=== PATIENT | male | born 1965 | race Caucasian/White ===

== ENCOUNTER 2019-12-18 08:29 | Day surgery (SDC) | payer SELFPAY ==
[2019-12-17 13:59] VITALS: BMI 29.0
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
[2019-12-18 09:37] VITALS: BP 140/87; PULSE 110; RESP 20; TEMP 36.4; O2SAT 98
[2019-12-18] MEDS: sodium chloride 0.9% 1,000 ML 30 ML (09:42)
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
[2019-12-18 10:45] VITALS: BP 125/88; PULSE 80; RESP 16; TEMP 36.2; O2SAT 99
--- NOTE | 2019-12-18 10:52 | ANE.PACU ---
 Inpatient post-anesthesia follow up: Airway intact: Yes Vital signs: Temperature 97.1 F Pulse Rate [Left R adial] 80 Respiratory Rate 16 Blood Pressure [Le ft Arm] 125/88 Pulse Oximetry 99 Oxygen Delivery Me thod Nasal Cannula Oxygen Flow Rate 2 Fraction of Inspir ed Oxygen Hydration adequate: Yes Nausea and vomiting: No Pain level: 1
== END 2019-12-18 11:14 | disposition home or self-care (01) ==
PROVIDERS: Visit Provider Surgery
PROC: 0DJD8ZZ Inspection of Lower Intestinal Tract, Via Natural or Artificial Opening Endoscopic (ICD-10-PCS; CPT 45378; principal; 2019-12-18 10:00)
DX: R93.5 Abnormal findings on diagnostic imaging of other abdominal regions, including retroperitoneum (principal); D12.4 Benign neoplasm of descending colon; F17.210 Nicotine dependence, cigarettes, uncomplicated; M19.90 Unspecified osteoarthritis, unspecified site
CPT/HCPCS: 12345; 45385; 88305; 96365; J2704; J7030

== ENCOUNTER 2025-01-12 11:44 | Inpatient (IN) | payer BC, MEDICAID, SELFPAY ==
[2025-01-12] VITALS (52 sets, daily range): BP systolic 98–135; BP diastolic 59–99; PULSE 75–128; RESP 18–49; TEMP 36.4–36.9; O2SAT 80–96; BMI 28.5
--- NOTE | 2025-01-12 11:56 | XRR_ITS ---
PROCEDURE INFORMATION: Exam: XR Chest Exam date and time: 01/12/2025 12:08 PM Age: 59 years old Clinical indication: Shortness of breath; PT C/O chest pain and SOB x1 week. PT states SOB has worsen. PT taking breaks between each word. PT denies o2 at baseline. PT reports nausea but denies vomiting. PT states he has copd. TECHNIQUE: Imaging protocol: Radiologic exam of the chest. Views: 1 view. COMPARISON: CR XR chest 1V [id number] 11/04/2019 9:44 AM FINDINGS: Lungs: Multifocal opacities along the right upper, right lower lobes and left lower lobes concerning for multifocal pneumonia. Curvilinear bilateral opacities which can be seen with emphysematous lung changes. Pleural spaces: Unremarkable. No pleural effusion. No pneumothorax. Heart/Mediastinum: Unremarkable. No cardiomegaly. Bones/joints: Unremarkable. XR/XR chest 1V portable [id number] IMPRESSION: 1. Imaging findings concerning for multifocal pneu. monia 2. Emphysematous lung changes.
--- NOTE | 2025-01-12 11:56 | ECG_ITS ---
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 Measurements Intervals [place] Rate: 129 P: 59 TX: 104 QRS: 54 QRSD: 67 T: 41 QT: 306 QTc: 448 Interpretive Statements SINUS TACHYCARDIA WITH SHORT TX INTERVAL WITH OCCASIONAL VENTRICULAR PREMATURE COMPLEXES ABNORMAL RHYTHM ECG Compared to ECG 11/04/2019 11:46:16 Ventricular premature complex(es) now present Short TX interval now present Sinus rhythm no longer present Electronically Signed On 01-12-2025 18:38:18 COMMERCIAL REAL ESTATE AGENT by Benigno Shah M.D. [id number]
[2025-01-12] MEDS: methylPREDNISolone sod succ 125 mg/2 mL INJ IV (12:03)
[2025-01-12] MEDS: sodium chloride 0.9% 1,000 ML 999 ML IV ×2 (12:05→14:46)
[2025-01-12 12:12] LABS: Basophils % 0.1 %; Eosinophils % 0.1 %; Hematocrit 49.4 % (37-53); Lymphocytes # 0.5 10^3/uL (0.8-4.8); Mean Corpuscular HGB Conc 35.6 g/dL (30-55); Mean Corpuscular Hemoglobin 35.9 pg (27-33); Mean Corpuscular Volume 100.8 fl (82-101); Mean Platelet Volume 10.5 fL (7.4-10.4); Monocytes # 0.3 10^3/uL (0.2-0.9); Monocytes % 3.6 %; Neutrophils # 6.35 10^3/uL (1.8-7.7); Neutrophils % 88.6 %; Nucleated Red Blood Cells % 0 %; Platelet Count 107 10^3/cmm (157-399); Red Cell Distribution Width 13.4 % (12.1-15.1); White Blood Count 7.17 10^3/uL (3.29-11.43)
[2025-01-12 12:12] LABS: ABG PCO2 28.8 mmHg (35-45); ABG PH Result 7.49 (7.35-7.45); Arterial Blood Gas Hematocrit 51.5 % (42-52); Base Excess ABG 0.2 mmol/L (-2.0-2.0); Blood Gas Allen Test Pos; Blood Gas Operator Identificat WALCI; Blood Gas Sample Site Radial, right; Blood Gas Sample Type Arterial; Carboxyhemoglobin 1.2 %THgb (0.4-20.1); HCO3 ABG 22.1 mmol/L (22-26); HGB O2 Sat 92.2 % (95-100); Oxygen Device NRB; PO2 ABG 58.1 mmHg (80.0-100.0); Total Hemoglobin 16.8 g/dL (14-18)
[2025-01-12] MEDS: ipratropium-albuterol 3 mL Neb INHALATION ×4 (12:16→20:15)
[2025-01-12 12:26] LABS: Troponin(5th) Baseline 15 ng/L (0-15)
[2025-01-12 12:28] LABS: Alanine Aminotransferase 105 U/L (0-41); Albumin Level 4.2 g/dL (3.5-5.2); Alkaline Phosphatase 303 U/L (40-130); Aspartate Amino Transferase 205 U/L (0-40); Blood Urea Nitrogen 15 mg/dL (6-20); Calcium 9.3 mg/dL (8.5-10.5); Carbon Dioxide 22 mmol/L (22-29); Chloride 83 mmol/L (98-107); Creatinine Clr Calc Pharmacy 105.5104; Globulin 3.5 g/dL (1.3-4.6); Glucose 151 mg/dL (65-115); Osmolality Calculated 264 mOsm/kg (285-295); Sodium 125 mmol/L (136-145); Total Bilirubin 1.7 mg/dL (0.15-1.2); Total Protein 7.7 g/dL (6.6-8.7)
[2025-01-12 12:31] LABS: Lactic Sepsis W/Reflex 4.2 mmol/L (0.5-2.2)
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
[2025-01-12] MEDS: racepinephrine 0.5 mL Neb INHALATION (13:21)
[2025-01-12 13:54] LABS: Reflex Lactate Order REFLEX LACTIC ORDERD
--- NOTE | 2025-01-12 13:56 | ECG_ITS ---
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 Measurements Intervals [place] Rate: 115 P: 55 VT: 139 QRS: 50 QRSD: 97 T: 42 QT: 358 QTc: 496 Interpretive Statements SINUS TACHYCARDIA ABNORMAL RHYTHM ECG Compared to ECG 01/12/2025 11:50:09 Ventricular premature complex(es) no longer present Short VT interval no longer present Electronically Signed On 01-12-2025 18:50:09 EQUIPMENT COORDINATOR by Benigno Shah M.D. [email or web address]
--- NOTE | 2025-01-12 14:04 | CTR_ITS ---
PROCEDURE INFORMATION: Exam: CTA Chest With Contrast Exam date and time: 01/12/2025 2:51 PM Age: 59 years old Clinical indication: Shortness of breath; Additional info: R/O pe TECHNIQUE: Imaging protocol: Computed tomographic angiography of the chest with contrast. Exam focused on the arteries. 3D rendering (Not supervised by radiologist): MIP and/or 3D reconstructed images were created by the technologist. Radiation optimization: All CT scans at this facility use at least one of these dose optimization techniques: automated exposure control; mA and/or kV adjustment per patient size (includes targeted exams where dose is matched to clinical indication); or iterative reconstruction. Contrast material: OMNIPAQUE 350; Contrast volume: 80 ml; Contrast route: INTRAVENOUS (IV); COMPARISON: CR (CHEST, ) 01/12/2025 12:08 PM RADIATION DOSE METRICS: Total DLP (mGy-cm): 463.36 FINDINGS: Pulmonary arteries: Adequate visualization of the pulmonary arteries to the subsegmental level. No pulmonary embolism. Aorta: Ascending aorta is normal in caliber. Lungs: Predominantly right hemithorax patchy to ground-glass opacities with a peripheral predominance, there is a dominant consolidation along the posterior right lower lobe. Ground-glass opacities are also observed along the lingula and left lower lobe. Pleural spaces: There is trace of small bilateral pleural effusions. No pneumothorax. Mixed line mild coronary artery calcifications predominantly along the LAD. Heart: Unremarkable. No cardiomegaly. No pericardial effusion. Lymph nodes: Right paratracheal reactive lymph node measuring up to 1.1 centimeters. Diaphragm: There is elevation of the right hemidiaphragm. Liver: Diffuse hepatic steatosis. Bones/joints: Unremarkable. No acute fracture. Soft tissues: Unremarkable. CT/CT angio chest PE protcl [id number] IMPRESSION: 1. No pulmonary embolism. 2. Multifocal pneumonia predominantly along the right hemithorax. 3. Reactive mediastinal lymphadenopathy measuring up to 1.1 centimeters 4. Diffuse hepatic steatosis.
[2025-01-12 14:27] LABS: Troponin 5 2HR 12.04 ng/L (0-15)
[2025-01-12 14:29] LABS: Troponin 5 2HR Delta -2.96 ABS# (0-10)
[2025-01-12] MEDS: LORazepam 2 mg/mL INJ 1 mL 1 MG IVP (14:39)
[2025-01-12] MEDS: methylPREDNISolone sod succ 40 mg/mL INJ IVP (14:40)
[2025-01-12] MEDS: AZITHROMYCIN ADD-Vantage 500 MG in 0.9% NaCl ADD-Vantage 250 ML 250 MG IV (14:44)
[2025-01-12 14:51] LABS: Procalcitonin 1.31 ng/mL (0-0.5); Thyroid Stimulating Hormone 1.52 uIU/mL (0.27-4.20)
[2025-01-12] MEDS: iohexol 350 mg/mL 500 mL Btl (per mL) IV (14:53)
[2025-01-12] MEDS: cefTRIAXone 1,000 mg SDV 1000 MG IVP (15:04)
[2025-01-12 15:34] LABS: Lactic Acid level (Lactate) 3.6 mmol/L (0.5-2.2)
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
--- NOTE | 2025-01-12 15:45 | CTR_ITS ---
PROCEDURE INFORMATION: Exam: CT Abdomen And Pelvis Without Contrast Exam date and time: 01/12/2025 4:21 PM Age: 59 years old Clinical indication: Other: Rule out liver cirrhosis, aware patient recently had contrast. TECHNIQUE: Imaging protocol: Computed tomography of the abdomen and pelvis without contrast. Radiation optimization: All CT scans at this facility use at least one of these dose optimization techniques: automated exposure control; mA and/or kV adjustment per patient size (includes targeted exams where dose is matched to clinical indication); or iterative reconstruction. COMPARISON: CT abdomen pelvis w con* [id number] 11/04/2019 10:29 AM RADIATION DOSE METRICS: Total DLP (mGy-cm): 1006.02 FINDINGS: Lungs: Partially visualized multifocal pneumonia predominantly along the right hemithorax. Liver: Enlarged liver measuring 24 centimeters. There is a diffuse decrease in hepatic parenchymal density, consistent with fatty infiltration. Gallbladder and biliary ducts: Multiple calcified gallstones are present. Pancreas: Normal. No ductal dilation. Spleen: Borderline enlarged spleen measuring 13.9 centimeters. Adrenal glands: Normal. No mass. Kidneys and ureters: Normal. No hydronephrosis. Stomach and bowel: Unremarkable. No obstruction. No mucosal thickening. Appendix: No evidence of appendicitis. Intraperitoneal space: Unremarkable. No free air. No significant fluid collection. Vasculature: Unremarkable. No abdominal aortic aneurysm. Lymph nodes: Unremarkable. No enlarged lymph nodes. Urinary bladder: Unremarkable as visualized. Reproductive: Unremarkable as visualized. Bones/joints: Degenerative changes of the lumbar spine. Soft tissues: Small bilateral fat containing inguinal hernias. 3.1 centimeters lateral right lower thoracic cage lipoma. CT/CT abdomen pelvis wo con [id number] IMPRESSION: 1. Diffuse hepatic steatosis and hepatomegaly with the liver measuring 24 centimeters. 2. Cholelithiasis. 3. Multifocal pneumonia along the right hemithorax.
[2025-01-12 16:02] LABS: C Reactive Protein 114.9 mg/L (0.0-4.9)
[2025-01-12] MEDS: thiamine 100 mg/mL 2mL SDV IM (16:02)
[2025-01-12] MEDS: sodium chloride 0.9% 1,000 ML 125 ML IV (16:02)
[2025-01-12] MEDS: heparin 5,000 unit/mL INJ 1 mL 5000 UNIT SUBCUT (16:04)
[2025-01-12 16:23] LABS: Hepatitis A Antibody IgM Non-Reactive (Nonreactive); Hepatitis B Core AB, Total Non-Reactive (Nonreactive); Hepatitis B Surface AB 58.1 (11.5-1000); Hepatitis B Surface Antigen Non-Reactive (Nonreactive); Hepatitis C Virus Antibody Reactive (Nonreactive)
[2025-01-12 16:58] LABS: Vitamin B12 721 pg/mL (232-1245)
[2025-01-12] MEDS: LORazepam 2 mg/mL INJ 1 mL IVP ×3 (17:12→19:34)
--- NOTE | 2025-01-12 17:44 | PC.NURSE ---
Addendum entered by Samuel Renner RN 01/12/25 17:47: ALso bladder scanned on arrival due to ER not reporting any urine output. Bladder scan shows 200mL retained. Original Note: REceived patient form ER staff at 1635. Patient is awake, oriented to person, place, time, and situation. BP: 121/80, HR: 97, SPO2: 93% on bipap (55% FIO2). Temp: 98.5. Patient is being monitored for withdrawal. On arrival he had muscle tremors, sweating, sensitivity to light. Scored 11 on CIWA. Administered ativan shortly after arrival.
--- NOTE | 2025-01-12 17:56 | ECG_ITS ---
Axial Exchange Jaunt Test Date: 2025-01-12 Pat Name: Mario Kruger Department: Room: [facility]04 Gender: Male Churner: : 1965 Requested By: Broderick Tapia Order Number: [id number] Eduardo MD: Benigno Shah M.D. Measurements Intervals [place] Rate: 94 P: 39 WV: 139 QRS: 48 QRSD: 82 T: 51 QT: 403 QTc: 505 Interpretive Statements SINUS RHYTHM WITH OCCASIONAL VENTRICULAR PREMATURE COMPLEXES Compared to ECG 01/12/2025 13:54:40 Ventricular premature complex(es) now present Sinus tachycardia no longer present Electronically Signed On 01-12-2025 18:50:21 DUMPLING MACHINE OPERATOR by Benigno Shah M.D. [email or web address]
[2025-01-12 18:12] LABS: Troponin 5 6HR 9.63 ng/L (0-15)
[2025-01-12 18:14] LABS: Troponin 5 6HR Delta -5.37 ng/L (0-12)
[2025-01-12 19:27] LABS: Influenza A POSITIVE (Negative); Influenza B NEGATIVE (Negative); Respiratory Syncytial Virus Ce NEGATIVE (Negative); SARS-CoV-2 PCR NEGATIVE (Negative)
[2025-01-12] MEDS: PHENobarbital 130 mg/mL SDV 1 mL IVP (20:51)
--- NOTE | 2025-01-12 21:00 | PC.NURSE ---
This RN called to ICU for pt agitation and hypoxic event. Multiple nursing staff at bedside. Pt confused, trembling, pulling at bipap, IVs, monitor cords, sitting on edge of bed trying to stand up. Primary RN on phone with hospitalist.
[2025-01-12] MEDS: LORazepam 2 mg/mL INJ 1 mL 3 MG IVP ×2 (21:07→21:15)
[2025-01-12] MEDS: dexmedeTOMIDine 0.9 % NaCL 400 MCG/100 ML PREMIX IV (21:10)
[2025-01-12] MEDS: morphine 4 mg/mL SDV 1 mL 2 MG IVP ×2 (21:17→21:38)
[2025-01-12] MEDS: morphine 4 mg/mL SDV 1 mL IVP (22:05)
--- NOTE | 2025-01-12 22:41 | PC.NURSE ---
Fluid rate This nurse received order from Dr Kumar to decrease patient's maintenance fluids to 75 ml/hr.
[2025-01-12 22:46] LABS: Amphetamines Screen Urine Negative (Negative); Barbiturates Screen Urine Negative (Negative); Benzodiazepines Screen Urine Positive (Negative); Cocaine Screen Urine Negative (Negative); Opiate Screen Urine Positive (Negative); PCP Screen Urine Negative (Negative); THC Screen Urine Positive (Negative)
[2025-01-12] MEDS: dexmedeTOMIDine 0.9 % NaCL 400 MCG/100 ML PREMIX 9.9 MCG IV (23:19)
--- NOTE | 2025-01-12 23:25 | PC.NURSE ---
Multiple verbal orders taken from Dr Kumar regarding pt. Dr Kumar at bedside. Pt unable to follow commands, pt unable to answer questions, pt continuously pulling at all lines and tubes, diaphoretic. Respiration rate exceeding 55+ bpm. O2 87-91% on bipap fio2 55%. 2106 - Precedex gtt 2106 - Ativan 3 mg 2114 - Morphine 2 mg 2137 - Morphine 2 mg 2204 - Morphine 4 mg
[2025-01-13] VITALS (124 sets, daily range): BP systolic 79–138; BP diastolic 44–107; PULSE 62–120; RESP 16–39; TEMP 37.3–38.1; O2SAT 80–100
[2025-01-13] MEDS: sodium chloride 0.9% 1,000 ML 999 ML IV (00:47)
[2025-01-13] MEDS: heparin 5,000 unit/mL INJ 1 mL 5000 UNIT SUBCUT ×2 (01:52→14:27)
[2025-01-13] MEDS: methylPREDNISolone sod succ 40 mg/mL INJ IVP ×2 (01:53→14:27)
[2025-01-13] MEDS: dexmedeTOMIDine 0.9 % NaCL 400 MCG/100 ML PREMIX 22.28 MCG IV (02:06)
[2025-01-13] MEDS: LORazepam 2 mg/mL INJ 1 mL IVP ×6 (03:22→11:34)
[2025-01-13] MEDS: dexmedeTOMIDine 0.9 % NaCL 400 MCG/100 ML PREMIX 27.23 MCG IV ×2 (05:43→08:51)
[2025-01-13 05:44] LABS: Basophils % 0.3 %; Hematocrit 42.7 % (37-53); Lymphocytes # 0.4 10^3/uL (0.8-4.8); Lymphocytes % 9.7 %; Mean Corpuscular HGB Conc 33.5 g/dL (30-55); Mean Corpuscular Hemoglobin 36.1 pg (27-33); Mean Corpuscular Volume 107.8 fl (82-101); Mean Platelet Volume 10.8 fL (7.4-10.4); Monocytes # 0.2 10^3/uL (0.2-0.9); Monocytes % 3.9 %; Neutrophils # 3.27 10^3/uL (1.8-7.7); Neutrophils % 85.3 %; Nucleated Red Blood Cells % 0 %; Platelet Count 69 10^3/cmm (157-399); Red Blood Count 3.96 10^6/uL (3.85-5.65); Red Cell Distribution Width 13.9 % (12.1-15.1); White Blood Count 3.83 10^3/uL (3.29-11.43)
[2025-01-13 05:45] LABS: ABG PCO2 32.7 mmHg (35-45); ABG PH Result 7.43 (7.35-7.45); PO2 ABG 50.2 mmHg (80.0-100.0)
[2025-01-13 05:46] LABS: Blood Gas Sample Type Arterial
[2025-01-13 05:47] LABS: Arterial Blood Gas Hematocrit 49.2 % (42-52); Blood Gas Allen Test Pos; Blood Gas Operator Identificat SAM; Blood Gas Sample Site Radial, right; HCO3 ABG 21.5 mmol/L (22-26)
[2025-01-13 05:48] LABS: Oxygen Device BIPAP
[2025-01-13 05:57] LABS: Alanine Aminotransferase 65 U/L (0-41); Alkaline Phosphatase 199 U/L (40-130); Anion Gap 17.7 (5-19); Aspartate Amino Transferase 95 U/L (0-40); Blood Urea Nitrogen 13 mg/dL (6-20); Calcium 7.3 mg/dL (8.5-10.5); Carbon Dioxide 21 mmol/L (22-29); Chloride 97 mmol/L (98-107); Creatinine Clr Calc Pharmacy 139.6179; Globulin 2.9 g/dL (1.3-4.6); Glomerular Filtration Rate 116.2 mL/min (90-130); Glucose 160 mg/dL (65-115); Magnesium 1.8 mg/dL (1.7-2.3); Osmolality Calculated 278 mOsm/kg (285-295); Potassium 3.7 mmol/L (3.5-5.1); Sodium 132 mmol/L (136-145); Total Bilirubin 0.9 mg/dL (0.15-1.2); Total Protein 5.9 g/dL (6.6-8.7)
[2025-01-13] MEDS: sodium chloride 0.9% 1,000 ML 75 ML IV ×2 (06:30→19:07)
[2025-01-13] MEDS: ipratropium-albuterol 3 mL Neb INHALATION ×4 (08:15→20:03)
--- NOTE | 2025-01-13 08:37 | PC.NURSE ---
Patient was assessed and is only responsive to pain stimuli. Patient is breathing 35 times a minute and is having severe tremors. Dr. Aleman was notified and she stated that she will come down and assess the patient.
[2025-01-13] MEDS: pantoprazole 40 mg SDV IVP (09:37)
[2025-01-13 09:43] LABS: ABG PCO2 29.4 mmHg (35-45); ABG PH Result 7.47 (7.35-7.45); Alveolar-Arterial Oxygen Gradi 61.9 mmHg (5-10); Arterial Blood Gas Hematocrit 45.5 % (42-52); Base Excess ABG -1.2 mmol/L (-2.0-2.0); Blood Gas Allen Test Pos; Blood Gas Operator Identificat GD; Blood Gas Sample Site Radial, right; Blood Gas Sample Type Arterial; Carboxyhemoglobin 0.8 %THgb (0.4-20.1); HCO3 ABG 21.3 mmol/L (22-26); HGB O2 Sat 93.2 % (95-100); Ionized Calcium Level - ABG 1.1 mmol/L (1.1-1.4); Methemoglobin 0.9 % (0.4-1.5); Oxygen Device BIPAP; Oxygen Saturation ABG 94.8; PO2 ABG 61.8 mmHg (80.0-100.0); PO2 FiO2 Ratio Arterial Blood 77; Potassium Level - ABG 4.3 mmol/L (3.5-5.0); Total Hemoglobin 14.9 g/dL (14-18)
--- NOTE | 2025-01-13 10:36 | P.PN_ITS ---
Subjective 2 Subjective: seen this am, ABG with Po2 of 60% on 80% fi02 Medications: Reviewed: Yes Vitals/I&O/Wt Last Vital Signs Temp 100.6 F H 01/13/25 07:40 Pulse 81 01/13/25 10:00 Resp 35 H 01/13/25 10:00 BP 102/63 01/13/25 10:00 Pulse Ox 98 01/13/25 10:00 O2 Del Method BiPAP 01/13/25 08:15 O2 Flow Rate 15 01/12/25 13:21 FiO2 80 01/13/25 09:53 01/12/25 01/13/25 01/13/25 22:59 06:59 14:59 Intake Total 2878.263 / 2878.263 1507.715 / 4385.978 85.321 / 85.321 Output Total 1100 / 1100 Balance 2878.263 / 2878.263 407.715 / 3285.978 85.321 / 85.321 Weight last 48 hrs Weight 98.883 kg Weight 98.883 kg Weight 99 kg Weight 92.986 kg Physical Exam 2 Narrative: General: No acute distress, AO x3 HEENT: PERRLA, pupils bilaterally equal and reactive, pallors not present Chest: Normal vesicular breath sounds, no added sounds, equal good air entry bilaterally CVS: S1-S2 regular, no murmurs, no tachycardia, no gallops, no rubs Abdomen: Soft, nontender, no organomegaly, bowel sounds present Neuro: No focal deficits, no facial deformity, AO x3, power 5/5 in all limbs Urinary Catheter Management: Sadler: Cath Placed During This Visit: yes Reason for Continuing Indwelling Catheter: Accurate Measurement of Urinary Output in Critically Ill Patients Urinary Catheter Date of Insertion: 01/12/25 Urinary Catheter Time of Insertion: 22:00 Data 01/13/25 05:20 01/13/25 05:20 Micro: Microbiology 01/13/25 02:38 Bacterial Antigens - Final Urine,Voided 01/13/25 02:38 Legionella Urinary Antigen - Final Urine Catheterized 01/12/25 15:03 Blood Culture - Preliminary Blood SPECIMEN COLLECTED 01/12/25 15:06 Blood Culture - Preliminary Blood SPECIMEN COLLECTED NAME: Mario Kruger #: [id number] LOC: ICU U #: [id number] AGE/SX: 59/M ROOM: ICU04 R E01/12/[address]: Tuyet Aleman MD : 1965 BED: 1 D IS: FAX #: STATUS: ADM IN TLOC: Spec #: [id number] Hoa: 01/13/25 Status: COMP Req #: [id number] Recd: 01/13/[address]: Lori Lott MD Src: URINE,VOID SpDesc: Ordered: Bacterial AG Procedure Result Verified Site Bacterial Antigen Final 01/13/25 Streptococcus Group B Negative for Streptococcus Group B Antigen Haemophilus influenzae B Negative or Haemophilus influenzae B Antigen S. pneumoniae Antigen Negative for S. pneumoniae Antigen N.meningitidis A,C,Y,W135 Negative for N.meningitidis A,C,Y,W135 Antigen N.meningitidis B/E.coli Negative for N.meningitidis B/E.coli K1 Antigen NAME: Mario Kruger LOC: ICU U #: [id number] AGE/SX: 59/M ROOM: ICU04 R E01/12/[address]: Tuyet Aleman MD : 1965 BED: 1 D IS: FAX #: STATUS: ADM IN TLOC: Spec #: [id number] Hoa: 01/13/25 Status: COMP Req #: [id number] Recd: 01/13/[address]: Lori Lott MD Src: Urine Cath SpDesc: Ordered: Legionella AG Procedure Result Verified Site Legionella Antigen STAT Final 01/13/25 Legion Patient Result Presumptive Negative for L. pneumophila NAME: Mario Kruger LOC: ICU U #: [id number] AGE/SX: 59/M ROOM: ICU04 R E01/12/[address]: Tuyet Aleman MD : 1965 BED: 1 D IS: FAX #: STATUS: ADM IN TLOC: Spec : [id number] Hoa: 01/12/25 Status: COMP Req : [id number] Recd: 01/12/25-[address]: Broderick Tapia DO Ordered: 4 plex test Test Low Normal High Flag Reference Site Covid PCR Ceph NEGATIVE Negative Influenza A Cep POSITIVE Negative Influenza B Cep NEGATIVE Negative RSV Ceph NEGATIVE Negative CT/CT angio chest PE protcl [id number] IMPRESSION: 1. No pulmonary embolism. 2. Multifocal pneumonia predominantly along the right hemithorax. 3. Reactive mediastinal lymphadenopathy measuring up to 1.1 centimeters 4. Diffuse hepatic steatosis. CT/CT abdomen pelvis wo con [id number] IMPRESSION: 1. Diffuse hepatic steatosis and hepatomegaly with the liver measuring 24 centimeters. 2. Cholelithiasis. 3. Multifocal pneumonia along the right hemithorax. A&P Assessment and plan (1) Multifocal pneumonia: (2) Alcohol abuse: (3) Alcohol withdrawal seizure: (4) Thrombocytopenia: (5) Hyponatremia: (6) BiPAP (biphasic positive airway pressure) dependence: (7) ARDS (adult respiratory distress syndrome): (8) Delirium tremens: (9) AMS (altered mental status): (10) Metabolic encephalopathy: (11) Influenzal pneumonia: Plan #Shortness of breath secondary to multifocal pneumonia #Sepsis secondary to multifocal pneumonia?criteria met by elevated lactic acid, tachycardia, acute hypoxia #Alcohol abuse #Alcohol withdrawal #History of alcohol withdrawal seizures #Recent upper respiratory illness #Noncompliance, does not follow with a doctor #Lactic acidosis #Untreated hepatitis C #Hyponatremia #Thrombocytopenia ? Placed on DuoNeb every 6 hours scheduled. Patient given Solu-Medrol 125 IV in the ER once ? Placed on Solu-Medrol 40 IV twice daily ? Check bacterial antigen and strep antigen ? Continue ceftriaxone azithromycin ? Placed on thiamine folic acid, CIWA protocol ? I will give 1 mg Ativan IV right now as patient is very anxious. ? Check CTA chest to rule out PE ? Check hepatitis profile ? Patient will need to be set up with primary care doctor and GI at time of discharge ? Will escalate to BiPAP at this time. Low threshold for intubation. Patient is a full code and agreeable to intubation if required. ? Check procalcitonin ? Elevated liver enzymes most likely secondary to untreated hepatitis. Bilirubin most likely secondary to liver disease as well. ? Check CT abdomen pelvis ? Check GGT ? Sodium 125 most likely secondary to alcohol abuse. Will check urine sodium, serum, urine osmolality ? Placed on normal saline 100 cc/h. Patient appears to be dehydrated. Chloride 83. ? EKG does show sinus tachycardia. Patient denies any chest pain at this time. Troponins negative x 3. ? Check vitamin B12 level. ? Initial lactic acid 4.2, repeat is reflex. ? Check lipid panel, hemoglobin A1c, TSH ? Will admit to ICU at this time. May use Precedex drip if needed Full code DVT prophylaxis: Heparin SQ twice daily 01/13/25: Admitted 01/11 with Hypoxia and alcohol withdrawal. Per life partner at bedside, he drinks a pint of drink every day. Last drink was on morning of admission. Patient is currently on precedex maxed at 1.2 at this time. Additionally has been receviing pushes of phenobarbital and Ativan. he is obtunded at this time. does not wake up to calling name or painful stimulus. On strenal rub, he starts to have significant tremors without any other meaningful response. Overall concern for delirium tremens, likely also with metabolic encephalopathy related to ARDS. Cannot r/o viral encephalitis at this time. Patient is currently in ARDS from multifocal PNA. Pa02 at 60% at 80% fi02 on Bipap. Pa02, fi02 ratio of 75 consistent with severe ARDS. We will proceed with intubation and mechanical ventilation today given poor mentation, inability to protect airway, obtunded on Bipap, severe ARDS and delirium tremens. Will obtain CT head once intubated. His partner is currently at bedside and updated regarding critical events. T max 100.6 He has been on rx with ceftriaxone and azithromyin. Add Vancomycin for additional MRSA coverage. Add Tamiflu 75mg BID Check MRSA nares. Check sputum cx and graim stain. Check Ammonia level . Blood cx negative thus far DVT ppx: heparin to d/c today due to thrombocytopenia, plt at 69 k today, SCDS onlt for now PUD ppx: protonix 40 mg daily PDMP PDMP Reviewed: Not Reviewed Attestations 2 Medical Necessity Statement*: Continued admission for ARDS, proceeding to mechanical ventilation today, delirium tremens, altered mental status Critical Care Time: The high probability of a clinically significant, sudden or life threatening deterioration of the patient's [respiratory, metabolic] system(s) required my full and direct attention, intervention and personal management. The critical care time is as shown. This time is in addition to time spent performing any reported procedures but includes the following: [x] Data and vital sign review and interpretation [x] Patient assessment, examination and intervention [x] Documentation [x] Medication orders and management Critical Care Time (min): 60 Coding Level of Care Code Critical Care >/= 30 minutes Diagnoses Multifocal pneumonia J18.9 Alcohol abuse F10.10 Alcohol withdrawal seizure F10.939; R56.9 Thrombocytopenia D69.6 Hyponatremia E87.1 BiPAP (biphasic positive airway pressure) dependence Z99.89 ARDS (adult respiratory distress syndrome) J80 Delirium tremens F10.931 AMS (altered mental status) R41.82 Metabolic encephalopathy G93.41 Influenzal pneumonia J11.00
--- NOTE | 2025-01-13 10:54 | PHA.VACGOAL ---
Vancomycin Goal - Goal Vancomycin Goal:: 15-20 mg/L Vancomycin Indication:: Pneumonia - Therapy Current therapy:: Other Antibiotic (CEFTRIAXONE) Day of therpy:: Day 1 of [] . Actual body weight (kg): 218 lb - Data Labs: WBC 3.83 10^3/uL (3.29-11.43) 01/13/25 05:20 RBC 3.96 10^6/uL (3.85-5.65) 01/13/25 05:20 Hgb 14.30 g/dL (11.27-16.99) 01/13/25 05:20 Hct 42.7 % (37-53) 01/13/25 05:20 MCV 107.8 fl (82-101) H D 01/13/25 05:20 MCH 36.1 pg (27-33) H 01/13/25 05:20 MCHC 33.5 g/dL (30-55) D 01/13/25 05:20 RDW 13.9 % (12.1-15.1) 01/13/25 05:20 Sodium 132 mmol/L (136-145) L 01/13/25 05:20 Potassium 3.7 mmol/L (3.5-5.1) 01/13/25 05:20 Chloride 97 mmol/L (98-107) L 01/13/25 05:20 Carbon Dioxide 21 mmol/L (22-29) L 01/13/25 05:20 Anion Gap 17.7 (5-19) 01/13/25 05:20 BUN 13 mg/dL (6-20) 01/13/25 05:20 Creatinine 0.7 mg/dL (0.7-1.2) 01/13/25 05:20 GFR Calculation 116.2 mL/min (90-130) 01/13/25 05:20 Last dialysis session:: N/A Treatment plan:: new consult Regimen:: LOADING DOSE OF 3000 MG X 1 PER DOSING PROTOCOL MAINTENANCE DOSE OF 1250 MG Q8H Follow up:: WILL CONTINUE TO MONITOR AND FOLLOW UP DAILY
[2025-01-13] MEDS: etomidate 10 ML 1 MG (11:01)
[2025-01-13] MEDS: propofol 10 mg/mL SDV 20 mL 200 MG (11:03)
[2025-01-13] MEDS: fentaNYL 1,000 MCG/100 ML BAG 2.5 MCG IV (11:10)
[2025-01-13] MEDS: midazolam hcl 100 MG/100 ML BAG IV (11:10)
[2025-01-13] MEDS: propofol 1,000 MG/100 ML INJ 2.97 MG IV (11:10)
--- NOTE | 2025-01-13 11:17 | ANES.PROC ---
Anesthesia Procedures Procedure/Date: 01/13/25 Intubation: Time Out Performed: Yes Consent: requested by attending/covering physician Sedative (amount): etomidate Paralytic (amount): succinylcholine Laryngoscope: fiber optic video scope ET Tube Size: 8 ET Tube Uncuffed: Yes Tube Secured Depth (cm): 25 Tube Secured Location: teeth Tube Placement Confirmation: visualized tube passing through cords Patient Tolerated Procedure: well Intubation Complications: none Additional Comments: Drew blade was initially introduced but patient was so dry was unable to visualize cords. Patient was bagged up and video laryngoscopy was performed without issues
--- NOTE | 2025-01-13 11:41 | XRR_ITS ---
PROCEDURE INFORMATION: Exam: XR Chest Exam date and time: 01/13/2025 11:45 AM Age: 59 years old Clinical indication: Device placement; Ett placement (vent status); Additional info: Post intubation TECHNIQUE: Imaging protocol: Radiologic exam of the chest. Views: 1 view. COMPARISON: CT angio chest PE protcl [id number] 01/12/2025 2:51 PM FINDINGS: Tubes, catheters and devices: The endotracheal tube terminates 5 cm above the hunter. Enteric tube terminates in the stomach. Lungs: Incompletely imaged bilateral pulmonary infiltrates, right greater than left. Pleural spaces: Unremarkable. No pleural effusion. No pneumothorax. Heart/Mediastinum: Unremarkable. No cardiomegaly. Bones/joints: Unremarkable. XR/XR chest 1V portable [id number] IMPRESSION: 1. Intubation. 2. Bilateral pulmonary infiltrates.
[2025-01-13] MEDS: succinylcholine 20 mg/mL SDV 10mL 200 MG (12:15)
--- NOTE | 2025-01-13 12:17 | PC.NURSE ---
Patient was intubated per Dr. Aleman: 1101: Etomidate 8 mls 1101: Succinylccholine 160 mg 1111: Intubation successful 1113: Propofol 40 mg 1115: Propofol 60 mg 1117: Propofol 100 mg
[2025-01-13] MEDS: vancomycin 3,000 MG/600 ML PIGGYBACK 200 MG IV (12:37)
[2025-01-13] MEDS: azithromycin 250 mg Tablet 500 MG NG-TUBE (12:38)
[2025-01-13] MEDS: norepinephrine 4 MG/250 ML BAG 7.5 MG IV (13:27)
[2025-01-13 13:36] LABS: Ammonia 88 umol/L (16-60)
[2025-01-13] MEDS: propofol 1,000 MG/100 ML INJ 41.53 MG IV (13:41)
[2025-01-13 13:55] LABS: MRSA PCR OZH (swab) MRSA Detected (Negative)
[2025-01-13] MEDS: cefTRIAXone 1,000 mg SDV 1000 MG IVP (14:27)
[2025-01-13] MEDS: propofol 1,000 MG/100 ML INJ 44.5 MG IV ×4 (15:54→22:21)
[2025-01-13 16:22] LABS: ABG PCO2 43.3 mmHg (35-45); ABG PH Result 7.32 (7.35-7.45); Arterial Blood Gas Hematocrit 43.4 % (42-52); Base Excess ABG -3.9 mmol/L (-2.0-2.0); Blood Gas Allen Test Pos; Blood Gas Operator Identificat GD; Blood Gas Sample Site Radial, right; Blood Gas Sample Type Arterial; Blood Gas Tidal Volume 0.55; HCO3 ABG 22.2 mmol/L (22-26); Oxygen Device VENT; PO2 ABG 65.8 mmHg (80.0-100.0); PO2 FiO2 Ratio Arterial Blood 65
[2025-01-13] MEDS: oseltamivir phosphate 75 mg Capsule NG-TUBE (17:28)
[2025-01-13] MEDS: fentaNYL 1,000 MCG/100 ML BAG 12.5 MCG IV (17:46)
[2025-01-13] MEDS: vancomycin 1,250 MG/250 ML PIGGYBACK 166.67 MG IV (18:15)
--- NOTE | 2025-01-13 18:56 | PM.ACPR ---
Procedure/Consent Time out: Time Out Performed: Yes Consent: Consent for Procedure: Consent obtained from other (indicate) (life partner) Acute Procedures Central Line Placement: Right Femoral: Time out performed: Yes Patient placed on monitor/pulse ox: Yes prep: mask, gown and gloves Central line prep: Povidone-Iodine 1%, Chlorhexidine scrub and sterile drapes applied Local anesthesia used: other anesthetic (on iv fentanyl and propofol) Ultrasound used for placement: Yes Central line lumen inserted: triple Post procedure: sutured in place, good blood return, all ports aspirated, flushed, capped and sterile dressing applied Post procedure x-ray: other (N/A) Patient tolerated procedure: well and no complications Epistaxis Control: Time out performed: Yes
--- NOTE | 2025-01-13 20:13 | PC.NURSE ---
Waste Wasted 10 ml of propofol. Witnessed by SANTHOSH Alexis.
[2025-01-13] MEDS: lactulose oral liq 20 gm/30 mL UDC PO (22:18)
[2025-01-14] VITALS (112 sets, daily range): BP systolic 87–119; BP diastolic 53–73; PULSE 78–97; RESP 16–18; TEMP 36.5–37.4; O2SAT 88–100
[2025-01-14] MEDS: propofol 1,000 MG/100 ML INJ 38.56 MG IV (00:19)
[2025-01-14] MEDS: fentaNYL 1,000 MCG/100 ML BAG 12.5 MCG IV (00:41)
--- NOTE | 2025-01-14 00:42 | PC.NURSE ---
Addendum entered by Macie Enriquez RN 01/14/25 00:45: Witnessed waste of 14 ml Fentanyl with SANTHOSH Lee. Original Note: Fentanyl Waste: 14ml Fentanyl left in IV tubing when new bag was started. Wasted w/ SANTHOSH Quijano.
--- NOTE | 2025-01-14 00:50 | PC.NURSE ---
Addendum entered by Rosa Horn RN 01/14/25 00:51: Witnessed waste of Propofol. Original Note: Waste Wasted 15 mls of propofol. Witnessed by SANTHOSH Lee.
[2025-01-14] MEDS: heparin 5,000 unit/mL INJ 1 mL 5000 UNIT SUBCUT ×2 (01:28→15:01)
[2025-01-14] MEDS: methylPREDNISolone sod succ 40 mg/mL INJ IVP ×2 (01:29→15:02)
[2025-01-14] MEDS: propofol 1,000 MG/100 ML INJ 32.63 MG IV ×2 (03:03→09:38)
[2025-01-14] MEDS: vancomycin 1,250 MG/250 ML PIGGYBACK 166.67 MG IV ×2 (03:47→15:35)
[2025-01-14 04:06] LABS: Basophils % 0.2 %; Hematocrit 40.4 % (37-53); Lymphocytes # 0.5 10^3/uL (0.8-4.8); Mean Corpuscular HGB Conc 32.7 g/dL (30-55); Mean Corpuscular Hemoglobin 36.5 pg (27-33); Mean Corpuscular Volume 111.6 fl (82-101); Mean Platelet Volume 10.9 fL (7.4-10.4); Monocytes # 0.2 10^3/uL (0.2-0.9); Monocytes % 3.4 %; Neutrophils # 4.33 10^3/uL (1.8-7.7); Neutrophils % 86.8 %; Nucleated Red Blood Cells % 0 %; Platelet Count 90 10^3/cmm (157-399); Red Blood Count 3.62 10^6/uL (3.85-5.65); Red Cell Distribution Width 14.4 % (12.1-15.1); White Blood Count 4.99 10^3/uL (3.29-11.43)
[2025-01-14 04:08] LABS: ABG PCO2 54.1 mmHg (35-45); ABG PH Result 7.26 (7.35-7.45); Arterial Blood Gas Hematocrit 41.2 % (42-52); Base Excess ABG -3.8 mmol/L (-2.0-2.0); Blood Gas Allen Test Pos; Blood Gas Operator Identificat ED; Blood Gas Sample Site Radial, right; Blood Gas Sample Type Arterial; Blood Gas Tidal Volume 0.55; Oxygen Device VENT; PO2 ABG 56.7 mmHg (80.0-100.0); PO2 FiO2 Ratio Arterial Blood 70
[2025-01-14 04:21] LABS: Alanine Aminotransferase 54 U/L (0-41); Albumin Level 2.8 g/dL (3.5-5.2); Alkaline Phosphatase 177 U/L (40-130); Aspartate Amino Transferase 99 U/L (0-40); Blood Urea Nitrogen 24 mg/dL (6-20); Calcium 7.6 mg/dL (8.5-10.5); Carbon Dioxide 22 mmol/L (22-29); Chloride 101 mmol/L (98-107); Creatinine Clr Calc Pharmacy 97.6786; Globulin 2.9 g/dL (1.3-4.6); Glucose 156 mg/dL (65-115); Osmolality Calculated 285 mOsm/kg (285-295); Sodium 134 mmol/L (136-145); Total Bilirubin 0.9 mg/dL (0.15-1.2); Total Protein 5.7 g/dL (6.6-8.7)
[2025-01-14 04:24] LABS: Ammonia 38 umol/L (16-60)
[2025-01-14 04:39] LABS: Slide Review Slide Review Perform
[2025-01-14] MEDS: lactulose oral liq 20 gm/30 mL UDC PO (05:40)
[2025-01-14] MEDS: chlorhexidine gluconate 4% Btl 118 mL 1 APPLIC TOPICAL (05:40)
[2025-01-14] MEDS: propofol 1,000 MG/100 ML INJ 26.7 MG IV (06:07)
--- NOTE | 2025-01-14 06:11 | PC.NURSE ---
Addendum entered by Rosa Horn RN 01/14/25 06:31: Witnessed waste of 10ml Propofol. Original Note: Waste Wasted 10 mls of propofol. Witnessed by SANTHOSH Lee.
[2025-01-14] MEDS: fentaNYL 1,000 MCG/100 ML BAG 10 MCG IV ×2 (06:29→15:36)
--- NOTE | 2025-01-14 07:08 | PC.NURSE ---
Patient started to cough while on the vent. Patient's nose started bleeding. This nurse cleaned up blood and bleeding stopped. Will continue to monitor.
[2025-01-14] MEDS: ipratropium-albuterol 3 mL Neb INHALATION ×4 (08:02→20:03)
[2025-01-14] MEDS: folic acid 1 mg Tablet PO (08:47)
[2025-01-14] MEDS: oseltamivir phosphate 75 mg Capsule NG-TUBE ×2 (08:47→18:20)
[2025-01-14] MEDS: sodium chloride 0.9% 1,000 ML 75 ML IV (08:47)
[2025-01-14] MEDS: pantoprazole 40 mg SDV IVP (08:47)
[2025-01-14] MEDS: multivitamin therapeutic Tablet 1 TAB PO (08:47)
[2025-01-14] MEDS: azithromycin 250 mg Tablet 500 MG NG-TUBE (08:47)
[2025-01-14] MEDS: thiamine 100 mg Tablet PO (08:48)
--- NOTE | 2025-01-14 11:00 | P.PN_ITS ---
Subjective 2 Subjective: Intubated on January 13, 2025. ABG this morning showing respiratory acidosis. pH of 7.26, pCO2 of 54.1, pO2 of 56.7, on 80% FiO2, PEEP of 10. Patient remains intubated and sedated. Postintubation he was noted to have biliary contents aspirated from his ET tube. Suspect that patient would have aspirated upon initial presentation. Medications: Reviewed: Yes Vitals/I&O/Wt Last Vital Signs Temp 97.7 F 01/14/25 13:15 Pulse 90 01/14/25 18:00 Resp 18 01/14/25 17:42 BP 107/67 01/14/25 18:00 Pulse Ox 96 01/14/25 18:00 O2 Del Method Mechanical Ventilation 01/14/25 18:00 O2 Flow Rate 15 01/12/25 13:21 FiO2 70 01/14/25 18:00 01/14/25 01/14/25 01/14/25 06:59 14:59 22:59 Intake Total 656.592 / 3217.519 246.775 / 246.775 402.388 / 649.163 Output Total 1100 / 1300 500 / 500 400 / 900 Balance -443.408 / 1917.519 -253.225 / -253.225 2.388 / -250.837 Weight last 48 hrs Weight 103 kg Weight 98.883 kg Weight 98.883 kg Physical Exam 2 Narrative: General: Intubated and sedated HEENT: PERRLA, pupils bilaterally equal and reactive, pallors not present Chest: Coarse crackles bilaterally CVS: S1-S2 regular, no murmurs, no tachycardia, no gallops, no rubs Abdomen: Soft, nontender, no organomegaly, bowel sounds present Neuro: Intubated and sedated with fentanyl and propofol Urinary Catheter Management: Sadler: Cath Placed During This Visit: yes Reason for Continuing Indwelling Catheter: Accurate Measurement of Urinary Output in Critically Ill Patients Urinary Catheter Date of Insertion: 01/12/25 Urinary Catheter Time of Insertion: 22:00 Data 01/15/25 02:50 01/15/25 02:50 Micro: Microbiology 01/13/25 11:25 Gram Stain - Final Sputum - Endotracheal Tube Aspirate Sputum Culture - Preliminary 01/12/25 15:03 Blood Culture - Preliminary Blood NEGATIVE TO DATE 02/16/25 15:06 Blood Culture - Preliminary Blood NEGATIVE TO DATE A&P Assessment and plan (1) Multifocal pneumonia: (2) Alcohol abuse: (3) Alcohol withdrawal seizure: (4) Thrombocytopenia: (5) Hyponatremia: (6) BiPAP (biphasic positive airway pressure) dependence: (7) ARDS (adult respiratory distress syndrome): (8) Delirium tremens: (9) AMS (altered mental status): (10) Metabolic encephalopathy: (11) Influenzal pneumonia: Plan #Shortness of breath secondary to multifocal pneumonia #Sepsis secondary to multifocal pneumonia?criteria met by elevated lactic acid, tachycardia, acute hypoxia #Alcohol abuse #Alcohol withdrawal #History of alcohol withdrawal seizures #Recent upper respiratory illness #Noncompliance, does not follow with a doctor #Lactic acidosis #Untreated hepatitis C #Hyponatremia #Thrombocytopenia ? Placed on DuoNeb every 6 hours scheduled. Patient given Solu-Medrol 125 IV in the ER once ? Placed on Solu-Medrol 40 IV twice daily ? Check bacterial antigen and strep antigen ? Continue ceftriaxone azithromycin ? Placed on thiamine folic acid, CIWA protocol ? I will give 1 mg Ativan IV right now as patient is very anxious. ? Check CTA chest to rule out PE ? Check hepatitis profile ? Patient will need to be set up with primary care doctor and GI at time of discharge ? Will escalate to BiPAP at this time. Low threshold for intubation. Patient is a full code and agreeable to intubation if required. ? Check procalcitonin ? Elevated liver enzymes most likely secondary to untreated hepatitis. Bilirubin most likely secondary to liver disease as well. ? Check CT abdomen pelvis ? Check GGT ? Sodium 125 most likely secondary to alcohol abuse. Will check urine sodium, serum, urine osmolality ? Placed on normal saline 100 cc/h. Patient appears to be dehydrated. Chloride 83. ? EKG does show sinus tachycardia. Patient denies any chest pain at this time. Troponins negative x 3. ? Check vitamin B12 level. ? Initial lactic acid 4.2, repeat is reflex. ? Check lipid panel, hemoglobin A1c, TSH ? Will admit to ICU at this time. May use Precedex drip if needed Full code DVT prophylaxis: Heparin SQ twice daily 01/13/25: Admitted 01/11 with Hypoxia and alcohol withdrawal. Per life partner at bedside, he drinks a pint of drink every day. Last drink was on morning of admission. Patient is currently on precedex maxed at 1.2 at this time. Additionally has been receviing pushes of phenobarbital and Ativan. he is obtunded at this time. does not wake up to calling name or painful stimulus. On strenal rub, he starts to have significant tremors without any other meaningful response. Overall concern for delirium tremens, likely also with metabolic encephalopathy related to ARDS. Cannot r/o viral encephalitis at this time. Patient is currently in ARDS from multifocal PNA. Pa02 at 60% at 80% fi02 on Bipap. Pa02, fi02 ratio of 75 consistent with severe ARDS. We will proceed with intubation and mechanical ventilation today given poor mentation, inability to protect airway, obtunded on Bipap, severe ARDS and delirium tremens. Will obtain CT head once intubated. His partner is currently at bedside and updated regarding critical events. T max 100.6 He has been on rx with ceftriaxone and azithromyin. Add Vancomycin for additional MRSA coverage. Add Tamiflu 75mg BID Check MRSA nares. Check sputum cx and graim stain. Check Ammonia level . Blood cx negative thus far DVT ppx: heparin to d/c today due to thrombocytopenia, plt at 69 k today, SCDS onlt for now PUD ppx: protonix 40 mg daily January 14, 2025. Patient intubated yesterday by anesthesia. Patient noted to have clear almost bilious appearing contents come out of his ET tube. Suspect that may have aspirated upon initial arrival. Life partner reports that patient drinks at least a pint every day. Chest x- ray taken today showing persistent mixed interstitial and alveolar infiltrates bilaterally with small pleural effusions overall slightly worse compared to the day prior. Discontinue IV fluids as suspect fluid overload also contributing. Lasix 20 mg IV x 1 now. Assess for urine output and kidney function prior to administering further Lasix doses. Discontinue ceftriaxone. Broaden antibiotic coverage to meropenem 1 g IV every 8 hours for broader gram-negative coverage and also for anaerobic coverage with suspected aspiration. Continue vancomycin. Sputum culture currently pending. Continue azithromycin. Patient remains on respiratory support with mechanical ventilation at this point. High FiO2 requirement of 80%, PEEP of 10. ABG with hypoxic hypercapnic respiratory acidosis, not ready for vent weaning yet. Blood culture remains negative to date. Continue Tamiflu 75 mg twice daily. Ammonia level elevated at 83, possibly hepatic encephalopathy contributing to his overall encephalopathic picture. Started lactulose 20 every 6 hours overnight, today he is having diarrhea as a result. Will change lactulose to daily dosing at this point. Ammonia has serially improved over [address] head additionally performed today as he is noted to have some abrasions over his left temporal area and continues to be obtunded. No signs of acute intracranial hemorrhage or edema. There is mild bilateral frontal lobe atrophy likely related to alcohol abuse. Possibility of Warnicke's encephalopathy not excluded. Unable to get MRI while patient is on ventilator. Continue thiamine 100 mg daily. PDMP PDMP Reviewed: Not Reviewed Attestations 2 Medical Necessity Statement*: Continued ventilatory support, continued need of IV antibiotics, IV diuretics Critical Care Time: The high probability of a clinically significant, sudden or life threatening deterioration of the patient's [respiratory, metabolic, GI, ID] system(s) required my full and direct attention, intervention and personal management. The critical care time is as shown. This time is in addition to time spent performing any reported procedures but includes the following: [x] Data and vital sign review and interpretation [x] Patient assessment, examination and intervention [x] Documentation [x] Medication orders and management Critical Care Time (min): 60 Coding Level of Care Code Critical Care >/= 30 minutes Diagnoses Multifocal pneumonia J18.9 Alcohol abuse F10.10 Alcohol withdrawal seizure F10.939; R56.9 Thrombocytopenia D69.6 Hyponatremia E87.1 BiPAP (biphasic positive airway pressure) dependence Z99.89 ARDS (adult respiratory distress syndrome) J80 Delirium tremens F10.931 AMS (altered mental status) R41.82 Metabolic encephalopathy G93.41 Influenzal pneumonia J11.00
--- NOTE | 2025-01-14 11:05 | CT_ITS ---
WS: [id number] CT HEAD NONCONTRAST HISTORY: AMS TECHNIQUE: Contiguous axial imaging performed through the brain. Bone and soft tissue windows. Sagittal and coronal reformats reviewed. All CT scans at [facility] use at least one of these dose optimization techniques: automated exposure control; mA and/or kV adjustment per patient size (includes targeted exams where dose is matched to clinical indication); or iterative reconstruction. DLP: 1065.47 mGy.cm COMPARISON: 11/09/2016 No acute intracranial hemorrhage, midline shift or mass effect. Mild bilateral frontal lobe atrophy. No infarct. Mild prior small vessel disease. Ventricles: Normal size with no hydrocephalus. No inferior displacement of the cerebellar tonsils. Paranasal sinuses: Mucoperiosteal thickening in the posterior ethmoid air cells extending into the nasopharynx. Probably related to the intubation. Mastoid air cells: Fluid extensively throughout the RIGHT mastoid air cells. Calvarium and scalp: Skull is intact with no soft tissue edema or swelling. CT/CT head wo con* [id number] IMPRESSION: 1. No acute intracranial hemorrhage or edema. 2. Mild bilateral frontal lobe atrophy. 3. New RIGHT mastoid air cell effusion. 4. No prior infarct. No acute edema. Mild small vessel disease.
[2025-01-14 11:15] LABS: Vancomycin Trough 24.6 ug/mL (10-15)
--- NOTE | 2025-01-14 12:03 | XRR_ITS ---
PROCEDURE INFORMATION: Exam: XR Chest Exam date and time: 01/14/2025 12:26 PM Age: 59 years old Clinical indication: Device placement; Ett placement (vent status); Additional info: Et tube placement, orogastric tube placement TECHNIQUE: Imaging protocol: Radiologic exam of the chest. Views: 1 view. COMPARISON: CR XR chest 1V portable [id number] 01/13/2025 11:45 AM FINDINGS: Tubes, catheters and devices: The endotracheal tube tip is seen approximately 3-4 cm above the hunter. The orogastric tube tip is seen in the mid to distal stomach. Lungs: There are persistent mixed interstitial and alveolar infiltrates bilaterally, particularly in the mid to lower lung zones. These appear slightly worse compared to the prior study. Pleural spaces: There are bilateral pleural effusions, slightly increased since the prior study. Heart/Mediastinum: The cardiac borders are partially obscured by the bilateral pulmonary infiltrates and pleural effusions. Bones/joints: Intact. Other findings: The patient is rotated, limiting evaluation. XR/XR chest 1V portable [id number] IMPRESSION: 1. ETT and orogastric tube in place. 2. Persistent mixed interstitial and alveolar infiltrates bilaterally with small bilateral pleural effusions, overall slightly worse compared to January 13, 2025.
[2025-01-14] MEDS: propofol 1,000 MG/100 ML INJ 29.67 MG IV ×4 (12:37→22:12)
[2025-01-14 13:43] LABS: ABG PCO2 52.7 mmHg (35-45); ABG PH Result 7.26 (7.35-7.45); Arterial Blood Gas Hematocrit 40.6 % (42-52); Blood Gas Allen Test Pos; Blood Gas Operator Identificat GD; Blood Gas Sample Site Radial, right; Blood Gas Sample Type Arterial; Blood Gas Tidal Volume 0.55; Carboxyhemoglobin 0.6 %THgb (0.4-20.1); HCO3 ABG 23.6 mmol/L (22-26); HGB O2 Sat 93.9 % (95-100); Ionized Calcium Level - ABG 1.2 mmol/L (1.1-1.4); Methemoglobin 1.1 % (0.4-1.5); Oxygen Device VENT; Oxygen Saturation ABG 95.5; PO2 ABG 76.1 mmHg (80.0-100.0); PO2 FiO2 Ratio Arterial Blood 84; Potassium Level - ABG 4.1 mmol/L (3.5-5.0); Total Hemoglobin 13.3 g/dL (14-18)
[2025-01-14] MEDS: cefTRIAXone 1,000 mg SDV 1000 MG IVP (14:54)
[2025-01-14 16:44] LABS: HEP C RNA Viral Load Quant 2850 IU/mL (NOT DETECTED); HEP C RNA Viral Load Quant 3.45 Log IU/mL (NOT DETECTED)
[2025-01-14] MEDS: meropenem 1,000 mg SDV 1000 MG IVP (19:30)
[2025-01-14] MEDS: FUROsemide 10 mg/mL SDV 2mL 20 MG IVP (19:31)
--- NOTE | 2025-01-14 22:14 | PC.NURSE ---
Waste Wasted 10 ml of propofol. Witnessed by SANTHOSH Alexis.
[2025-01-15] VITALS (83 sets, daily range): BP systolic 92–154; BP diastolic 57–91; PULSE 64–126; RESP 18–25; TEMP 36.2–37.1; O2SAT 88–99
[2025-01-15] MEDS: methylPREDNISolone sod succ 40 mg/mL INJ IVP ×2 (01:08→13:18)
[2025-01-15] MEDS: fentaNYL 1,000 MCG/100 ML BAG 10 MCG IV ×2 (01:10→17:34)
[2025-01-15] MEDS: propofol 1,000 MG/100 ML INJ 26.7 MG IV (01:19)
[2025-01-15] MEDS: meropenem 1,000 mg SDV 1000 MG IVP ×3 (02:55→19:26)
[2025-01-15] MEDS: vancomycin 1,250 MG/250 ML PIGGYBACK 166.67 MG IV (03:01)
[2025-01-15 04:19] LABS: Basophils % 0.4 %; Hematocrit 37.3 % (37-53); Lymphocytes # 0.4 10^3/uL (0.8-4.8); Lymphocytes % 16.7 %; Mean Corpuscular HGB Conc 32.4 g/dL (30-55); Mean Corpuscular Hemoglobin 36.2 pg (27-33); Mean Corpuscular Volume 111.7 fl (82-101); Mean Platelet Volume 11.6 fL (7.4-10.4); Monocytes # 0.2 10^3/uL (0.2-0.9); Monocytes % 6.5 %; Neutrophils # 1.99 10^3/uL (1.8-7.7); Neutrophils % 75.6 %; Nucleated Red Blood Cells % 0 %; Platelet Count 100 10^3/cmm (157-399); Red Blood Count 3.34 10^6/uL (3.85-5.65); Red Cell Distribution Width 14.7 % (12.1-15.1); White Blood Count 2.63 10^3/uL (3.29-11.43)
[2025-01-15 04:39] LABS: Alanine Aminotransferase 45 U/L (0-41); Albumin Level 2.6 g/dL (3.5-5.2); Alkaline Phosphatase 160 U/L (40-130); Aspartate Amino Transferase 65 U/L (0-40); Blood Urea Nitrogen 24 mg/dL (6-20); Carbon Dioxide 21 mmol/L (22-29); Chloride 101 mmol/L (98-107); Creatinine Clr Calc Pharmacy 124.4712; Globulin 3.1 g/dL (1.3-4.6); Glomerular Filtration Rate 99.6 mL/min (90-130); Glucose 161 mg/dL (65-115); Osmolality Calculated 292 mOsm/kg (285-295); Sodium 137 mmol/L (136-145); Total Bilirubin 0.6 mg/dL (0.15-1.2); Total Protein 5.7 g/dL (6.6-8.7)
[2025-01-15 04:45] LABS: Anion Gap 18.9 (5-19); Potassium 3.9 mmol/L (3.5-5.1)
[2025-01-15 04:56] LABS: Slide Review Slide Review Perform
[2025-01-15] MEDS: propofol 1,000 MG/100 ML INJ 29.67 MG IV ×6 (05:09→22:49)
[2025-01-15 05:20] LABS: ABG PCO2 44.4 mmHg (35-45); ABG PH Result 7.33 (7.35-7.45); Arterial Blood Gas Hematocrit 38.9 % (42-52); Base Excess ABG -2.4 mmol/L (-2.0-2.0); Blood Gas Allen Test Pos; Blood Gas Sample Site Radial, left; Blood Gas Sample Type Arterial; HCO3 ABG 23.6 mmol/L (22-26); Oxygen Device VENT; PO2 ABG 73.5 mmHg (80.0-100.0); PO2 FiO2 Ratio Arterial Blood 122
--- NOTE | 2025-01-15 08:00 | PC.NURSE ---
Propofol off. Pt thrashing in the bed, trying to get ahold of ETT. Pt's eyes rolled up. No signs of orientation noted. pt diaphoretic and very neahl. BP and heart rate elevated. Propofol restarted. Versed restarted. CIWA scored for behaviors observed.
[2025-01-15] MEDS: lactulose oral liq 20 gm/30 mL UDC PO (08:27)
[2025-01-15] MEDS: multivitamin therapeutic Tablet 1 TAB PO (08:27)
[2025-01-15] MEDS: thiamine 100 mg Tablet PO (08:27)
[2025-01-15] MEDS: oseltamivir phosphate 75 mg Capsule NG-TUBE ×2 (08:27→17:32)
[2025-01-15] MEDS: azithromycin 250 mg Tablet 500 MG NG-TUBE (08:27)
[2025-01-15] MEDS: folic acid 1 mg Tablet PO (08:27)
[2025-01-15] MEDS: pantoprazole 40 mg SDV IVP (08:27)
[2025-01-15] MEDS: ipratropium-albuterol 3 mL Neb INHALATION ×4 (08:31→19:25)
[2025-01-15] MEDS: FUROsemide 10 mg/mL SDV 2mL 20 MG IVP ×2 (10:09→15:54)
[2025-01-15] MEDS: fentaNYL 1,000 MCG/100 ML BAG 12.5 MCG IV (10:10)
[2025-01-15] MEDS: midazolam hcl 100 MG/100 ML BAG IV (10:38)
--- NOTE | 2025-01-15 11:18 | P.PN_ITS ---
Subjective 2 Subjective: FiO2 requirement slightly better today at 60%. ABG this morning is looking improved with pH of 7.33, pCO2 of 44, pO2 of 73 on 60% FiO2, PEEP of 10. Attempts to wean down sedation this morning were not tolerated. With only a brief period of being off propofol, patient became increasingly agitated, attempting to bite down on the tube, did not follow any commands meaningfully. Medications: Reviewed: Yes Vitals/I&O/Wt Last Vital Signs Temp 97.2 F L 01/15/25 05:50 Pulse 111 H 01/15/25 08:40 Resp 22 H 01/15/25 10:01 BP 97/62 01/15/25 06:30 Pulse Ox 92 01/15/25 10:01 O2 Del Method Mechanical Ventilation 01/15/25 08:31 O2 Flow Rate 15 01/12/25 13:21 FiO2 60 01/15/25 10:01 01/14/25 01/15/25 01/15/25 22:59 06:59 14:59 Intake Total 2557.854 / 2804.629 288.039 / 3092.668 466.017 / 466.017 Output Total 400 / 900 1200 / 2100 Balance 2157.854 / 1904.629 -911.961 / 992.668 466.017 / 466.017 Weight last 48 hrs Weight 103 kg Physical Exam 2 Narrative: General: Intubated and sedated HEENT: PERRLA, pupils bilaterally equal and reactive, pallors not present Chest: Coarse crackles bilaterally CVS: S1-S2 regular, no murmurs, no tachycardia, no gallops, no rubs Abdomen: Soft, nontender, no organomegaly, bowel sounds present Neuro: Intubated and sedated with fentanyl and propofol Urinary Catheter Management: Sadler: Cath Placed During This Visit: yes Reason for Continuing Indwelling Catheter: Accurate Measurement of Urinary Output in Critically Ill Patients Urinary Catheter Date of Insertion: 01/12/25 Urinary Catheter Time of Insertion: 22:00 Data 01/15/25 02:50 01/15/25 02:50 Micro: Microbiology 01/13/25 11:25 Gram Stain - Final Sputum - Endotracheal Tube Aspirate Sputum Culture - Preliminary A&P Assessment and plan (1) Multifocal pneumonia: (2) Alcohol abuse: (3) Alcohol withdrawal seizure: (4) Thrombocytopenia: (5) Hyponatremia: (6) BiPAP (biphasic positive airway pressure) dependence: (7) ARDS (adult respiratory distress syndrome): (8) Delirium tremens: (9) AMS (altered mental status): (10) Metabolic encephalopathy: (11) Influenzal pneumonia: Plan #Shortness of breath secondary to multifocal pneumonia #Sepsis secondary to multifocal pneumonia?criteria met by elevated lactic acid, tachycardia, acute hypoxia #Alcohol abuse #Alcohol withdrawal #History of alcohol withdrawal seizures #Recent upper respiratory illness #Noncompliance, does not follow with a doctor #Lactic acidosis #Untreated hepatitis C #Hyponatremia #Thrombocytopenia ? Placed on DuoNeb every 6 hours scheduled. Patient given Solu-Medrol 125 IV in the ER once ? Placed on Solu-Medrol 40 IV twice daily ? Check bacterial antigen and strep antigen ? Continue ceftriaxone azithromycin ? Placed on thiamine folic acid, CIWA protocol ? I will give 1 mg Ativan IV right now as patient is very anxious. ? Check CTA chest to rule out PE ? Check hepatitis profile ? Patient will need to be set up with primary care doctor and GI at time of discharge ? Will escalate to BiPAP at this time. Low threshold for intubation. Patient is a full code and agreeable to intubation if required. ? Check procalcitonin ? Elevated liver enzymes most likely secondary to untreated hepatitis. Bilirubin most likely secondary to liver disease as well. ? Check CT abdomen pelvis ? Check GGT ? Sodium 125 most likely secondary to alcohol abuse. Will check urine sodium, serum, urine osmolality ? Placed on normal saline 100 cc/h. Patient appears to be dehydrated. Chloride 83. ? EKG does show sinus tachycardia. Patient denies any chest pain at this time. Troponins negative x 3. ? Check vitamin B12 level. ? Initial lactic acid 4.2, repeat is reflex. ? Check lipid panel, hemoglobin A1c, TSH ? Will admit to ICU at this time. May use Precedex drip if needed Full code DVT prophylaxis: Heparin SQ twice daily 01/13/25: Admitted 01/11 with Hypoxia and alcohol withdrawal. Per life partner at bedside, he drinks a pint of drink every day. Last drink was on morning of admission. Patient is currently on precedex maxed at 1.2 at this time. Additionally has been receviing pushes of phenobarbital and Ativan. he is obtunded at this time. does not wake up to calling name or painful stimulus. On strenal rub, he starts to have significant tremors without any other meaningful response. Overall concern for delirium tremens, likely also with metabolic encephalopathy related to ARDS. Cannot r/o viral encephalitis at this time. Patient is currently in ARDS from multifocal PNA. Pa02 at 60% at 80% fi02 on Bipap. Pa02, fi02 ratio of 75 consistent with severe ARDS. We will proceed with intubation and mechanical ventilation today given poor mentation, inability to protect airway, obtunded on Bipap, severe ARDS and delirium tremens. Will obtain CT head once intubated. His partner is currently at bedside and updated regarding critical events. T max 100.6 He has been on rx with ceftriaxone and azithromyin. Add Vancomycin for additional MRSA coverage. Add Tamiflu 75mg BID Check MRSA nares. Check sputum cx and graim stain. Check Ammonia level . Blood cx negative thus far DVT ppx: heparin to d/c today due to thrombocytopenia, plt at 69 k today, SCDS onlt for now PUD ppx: protonix 40 mg daily January 14, 2025. Patient intubated yesterday by anesthesia. Patient noted to have clear almost bilious appearing contents come out of his ET tube. Suspect that may have aspirated upon initial arrival. Life partner reports that patient drinks at least a pint every day. Chest x- ray taken today showing persistent mixed interstitial and alveolar infiltrates bilaterally with small pleural effusions overall slightly worse compared to the day prior. Discontinue IV fluids as suspect fluid overload also contributing. Lasix 20 mg IV x 1 now. Assess for urine output and kidney function prior to administering further Lasix doses. Discontinue ceftriaxone. Broaden antibiotic coverage to meropenem 1 g IV every 8 hours for broader gram-negative coverage and also for anaerobic coverage with suspected aspiration. Continue vancomycin. Sputum culture currently pending. Continue azithromycin. Patient remains on respiratory support with mechanical ventilation at this point. High FiO2 requirement of 80%, PEEP of 10. ABG with hypoxic hypercapnic respiratory acidosis, not ready for vent weaning yet. Blood culture remains negative to date. Continue Tamiflu 75 mg twice daily. Ammonia level elevated at 83, possibly hepatic encephalopathy contributing to his overall encephalopathic picture. Started lactulose 20 every 6 hours overnight, today he is having diarrhea as a result. Will change lactulose to daily dosing at this point. Ammonia has serially improved over [address] head additionally performed today as he is noted to have some abrasions over his left temporal area and continues to be obtunded. No signs of acute intracranial hemorrhage or edema. There is mild bilateral frontal lobe atrophy likely related to alcohol abuse. Possibility of Warnicke's encephalopathy not excluded. Unable to get MRI while patient is on ventilator. Continue thiamine 100 mg daily. January 15, 2025 Received Lasix 20 mg IV last evening and then again this morning. He is overall net +6700 cc since admission[address] Will place him on 20 mg IV Lasix every 12 hours. Closely monitor for kidney function. Noted to have mild leukopenia today, likely related to acute infection, likely alcoholic hepatitis. Continue to monitor. Platelet counts improved at 100,000. Patient had spontaneous nosebleed yesterday therefore would not resume heparin currently. Attempts to wean down sedation this morning were not well-tolerated. Vent requirements slightly better today with FiO2 down to 60%. Continued attempts at weaning down requirements. Continue meropenem, vancomycin and azithromycin. Sputum culture pending. Tamiflu course to be completed for 5 days. PDMP PDMP Reviewed: Not Reviewed Attestations 2 Medical Necessity Statement*: Continued need of ventilatory support, IV antibiotics, IV diuresis. Critical Care Time: The high probability of a clinically significant, sudden or life threatening deterioration of the patient's [respiratory,GI,ID] system(s) required my full and direct attention, intervention and personal management. The critical care time is as shown. This time is in addition to time spent performing any reported procedures but includes the following: [x] Data and vital sign review and interpretation [x] Patient assessment, examination and intervention [x] Documentation [x] Medication orders and management Critical Care Time (min): 50 Coding Level of Care Code Critical Care >/= 30 minutes Diagnoses Multifocal pneumonia J18.9 Alcohol abuse F10.10 Alcohol withdrawal seizure F10.939; R56.9 Thrombocytopenia D69.6 Hyponatremia E87.1 BiPAP (biphasic positive airway pressure) dependence Z99.89 ARDS (adult respiratory distress syndrome) J80 Delirium tremens F10.931 AMS (altered mental status) R41.82 Metabolic encephalopathy G93.41 Influenzal pneumonia J11.00
--- NOTE | 2025-01-15 11:23 | USCV_ITS ---
Mario Kruger Age: 59 Gender: M : 1965 Exam Date: 01/15/2025 13:50 Ordering Phys: Tuyet Aleman MD Technologist: Exam Location: [facility] [place] Indication: tach BP: / HR: Rhythm: Sinus Technical Quality: MEASUREMENTS (Male / Female) Normal Values FINDINGS Left Ventricle Normal left ventricular size, systolic function and wall thickness, with no regional wall motion abnormalities. Left ventricular ejection fraction is estimated at 55 %. Right Ventricle Normal right ventricular size. Right Atrium Left Atrium Mitral Valve Aortic Valve Tricuspid Valve Pulmonic Valve Pericardium Aorta IVC CONCLUSIONS Limited echo Normal left ventricular size, systolic function and wall thickness, with no regional wall motion abnormalities. Left ventricular ejection fraction is estimated at 55 %. Normal right ventricular size. There is no pericardial effusion. Shiela Dooley MD (Electronically Signed) Final Date: 15 January 2025 15:03 S
--- NOTE | 2025-01-15 14:50 | PC.NURSE ---
[facility] completed: SVI CI HR 1155 baseline 33 3.2 98 1156 33 3.2 98 1157 HOB 45 degrees 31 3.1 98 1158 31 3.1 99 1159 PLR 32 3.1 99 1200 31 3.1 99 1201 34 3.4 96 1203 35 3.3 96 SVI% change 12.4%. Pt fluid responsive. Dr Aleman notified via secure messaging.
[2025-01-15] MEDS: vancomycin 1,250 MG/250 ML PIGGYBACK 166 MG IV (15:51)
--- NOTE | 2025-01-15 19:35 | PC.NURSE ---
Shift summary; Pt remains intubated and sedated. FIO2 remains at 60%. no changes in vent settings. Fentanyl gtt rate increased. Propofol remains at 50 mcg/kg/min. Versed restarted, due to his agitation this am, it is at 2mg/hr. He became really diaphoretic and dark red in color, thrashing around in the bed susan propofol stopped for a few minutes to assess his mentation. at times he localizes to pain. His urine is dark yellow, `1050 ml of output noted this shift. He is incontinent of loose stools withn an hour of Lactulose admin per OG. called for updates, updates provided. Daughter came in to visit and provided with updates.
[2025-01-16] VITALS (53 sets, daily range): BP systolic 95–132; BP diastolic 56–82; PULSE 59–110; RESP 16–22; TEMP 36.6–37.4; O2SAT 91–99
[2025-01-16 02:16] LABS: Basophils % 0.3 %; Hematocrit 36.6 % (37-53); Lymphocytes # 0.8 10^3/uL (0.8-4.8); Lymphocytes % 19.4 %; Mean Corpuscular HGB Conc 32.8 g/dL (30-55); Mean Corpuscular Volume 109.9 fl (82-101); Mean Platelet Volume 10.9 fL (7.4-10.4); Monocytes # 0.3 10^3/uL (0.2-0.9); Monocytes % 7.2 %; Neutrophils % 71.6 %; Nucleated Red Blood Cells % 0 %; Platelet Count 144 10^3/cmm (157-399); Red Blood Count 3.33 10^6/uL (3.85-5.65); White Blood Count 3.91 10^3/uL (3.29-11.43)
[2025-01-16] MEDS: methylPREDNISolone sod succ 40 mg/mL INJ IVP ×2 (02:24→14:51)
[2025-01-16] MEDS: propofol 1,000 MG/100 ML INJ 29.67 MG IV ×4 (02:25→11:56)
[2025-01-16] MEDS: fentaNYL 1,000 MCG/100 ML BAG 10 MCG IV ×2 (02:32→12:12)
[2025-01-16 02:39] LABS: Ammonia 42 umol/L (16-60); Vancomycin Trough 22.1 ug/mL (10-15)
[2025-01-16 02:41] LABS: Alanine Aminotransferase 55 U/L (0-41); Albumin Level 2.9 g/dL (3.5-5.2); Alkaline Phosphatase 186 U/L (40-130); Anion Gap 17.2 (5-19); Aspartate Amino Transferase 97 U/L (0-40); Blood Urea Nitrogen 30 mg/dL (6-20); Calcium 7.9 mg/dL (8.5-10.5); Carbon Dioxide 25 mmol/L (22-29); Chloride 104 mmol/L (98-107); Creatinine Clr Calc Pharmacy 124.4712; Globulin 2.6 g/dL (1.3-4.6); Glomerular Filtration Rate 99.6 mL/min (90-130); Glucose 118 mg/dL (65-115); Osmolality Calculated 301 mOsm/kg (285-295); Potassium 4.2 mmol/L (3.5-5.1); Sodium 142 mmol/L (136-145); Total Bilirubin 0.8 mg/dL (0.15-1.2); Total Protein 5.5 g/dL (6.6-8.7)
[2025-01-16 02:49] LABS: Slide Review Slide Review Perform
[2025-01-16] MEDS: meropenem 1,000 mg SDV 1000 MG IVP ×3 (03:19→20:45)
[2025-01-16] MEDS: FUROsemide 10 mg/mL SDV 2mL 20 MG IVP ×2 (03:19→17:12)
--- NOTE | 2025-01-16 04:00 | XRR_ITS ---
PROCEDURE INFORMATION: Exam: XR Chest Exam date and time: 01/16/2025 4:35 AM Age: 59 years old Clinical indication: Shortness of breath and wheezing; Additional info: F/u chest infiltrates TECHNIQUE: Imaging protocol: Radiologic exam of the chest. Views: 1 view. COMPARISON: CR XR chest 1V portable [id number] 01/14/2025 12:26 PM FINDINGS: Tubes, catheters and devices: Patient is intubated, endotracheal tube terminates 3.9 cm from the hunter. Enteric tube traverses midline, side fenestration and catheter tip not within the field of view. Lungs: Findings suggestive of superimposed COPD. Lung base fine reticular markings and small nodular opacities are seen, [id number]-[id number]-right. Pleural spaces: Perhaps mild veil like blunting of the left costophrenic angle. Heart/Mediastinum: Unremarkable. No cardiomegaly. Bones/joints: No acute change of the osseous structures. XR/XR chest 1V portable [id number] IMPRESSION: Perhaps mild improvement in aeration of the basilar opacities, however persistent findings are highlighted above.
[2025-01-16 05:10] LABS: ABG PCO2 45.4 mmHg (35-45); Arterial Blood Gas Hematocrit 39.7 % (42-52); Blood Gas Sample Site Brachial, right; Blood Gas Sample Type Arterial; HCO3 ABG 28.4 mmol/L (22-26); Oxygen Device VENT; PO2 FiO2 Ratio Arterial Blood 120
[2025-01-16] MEDS: ipratropium-albuterol 3 mL Neb INHALATION ×4 (07:49→20:11)
[2025-01-16] MEDS: multivitamin therapeutic Tablet 1 TAB PO (08:10)
[2025-01-16] MEDS: azithromycin 250 mg Tablet 500 MG NG-TUBE (08:10)
[2025-01-16] MEDS: thiamine 100 mg Tablet PO (08:10)
[2025-01-16] MEDS: oseltamivir phosphate 75 mg Capsule NG-TUBE ×2 (08:10→17:13)
[2025-01-16] MEDS: folic acid 1 mg Tablet PO (08:10)
[2025-01-16] MEDS: lactulose oral liq 20 gm/30 mL UDC PO (08:28)
[2025-01-16] MEDS: VANCOMYCIN ADD-Vantage 1,000 MG in 0.9% NaCl ADD-Vantage 250 ML 250 MG IV ×2 (08:28→20:55)
[2025-01-16] MEDS: pantoprazole 40 mg SDV IVP (08:35)
--- NOTE | 2025-01-16 10:15 | PC.NURSE ---
Versed gtt; Stopped per Dr Aleman. Order remains active at this time , per Dr Aleman.
[2025-01-16 12:57] LABS: ABG PCO2 41.7 mmHg (35-45); ABG PH Result 7.44 (7.35-7.45); Arterial Blood Gas Hematocrit 40.5 % (42-52); Blood Gas Allen Test Pos; Blood Gas Operator Identificat CAK; Blood Gas Sample Site Radial, left; Blood Gas Sample Type Arterial; HCO3 ABG 28.5 mmol/L (22-26); Oxygen Device VENT; PO2 ABG 58.7 mmHg (80.0-100.0); PO2 FiO2 Ratio Arterial Blood 130
[2025-01-16] MEDS: propofol 1,000 MG/100 ML INJ 47.46 MG IV ×5 (14:43→23:33)
[2025-01-16] MEDS: dexmedeTOMIDine 0.9 % NaCL 400 MCG/100 ML PREMIX IV (14:44)
--- NOTE | 2025-01-16 17:16 | P.PN_ITS ---
Subjective 2 Subjective: fi02 at 45% today. Weaned off versed, started Precedex intsead with intention of vent weaning if able Medications: Reviewed: Yes Vitals/I&O/Wt Last Vital Signs Temp 98 F 01/16/25 11:00 Pulse 86 01/16/25 15:11 Resp 16 01/16/25 15:14 BP 123/67 01/16/25 12:00 Pulse Ox 96 01/16/25 15:14 O2 Del Method Mechanical Ventilation 01/16/25 15:11 O2 Flow Rate 15 01/12/25 13:21 FiO2 45 01/16/25 15:14 01/16/25 01/16/25 01/16/25 06:59 14:59 22:59 Intake Total 300 / 1544.422 792.100 / 792.100 126.764 / 918.864 Output Total 300 / 2010 Balance 0 / -465.578 792.100 / 792.100 126.764 / 918.864 Weight last 48 hrs Weight 107.774 kg Physical Exam 2 Narrative: General: Intubated and sedated HEENT: PERRLA, pupils bilaterally equal and reactive, pallors not present Chest: Coarse crackles bilaterally CVS: S1-S2 regular, no murmurs, no tachycardia, no gallops, no rubs Abdomen: Soft, nontender, no organomegaly, bowel sounds present Neuro: Intubated and sedated with fentanyl and propofol Urinary Catheter Management: Sadler: Cath Placed During This Visit: yes Reason for Continuing Indwelling Catheter: Accurate Measurement of Urinary Output in Critically Ill Patients Urinary Catheter Date of Insertion: 01/12/25 Urinary Catheter Time of Insertion: 22:00 Data 01/16/25 01:48 01/16/25 01:48 Micro: Microbiology 01/13/25 11:25 Gram Stain - Final Sputum - Endotracheal Tube Aspirate Sputum Culture - Final A&P Assessment and plan (1) Multifocal pneumonia: (2) Alcohol abuse: (3) Alcohol withdrawal seizure: (4) Thrombocytopenia: (5) Hyponatremia: (6) BiPAP (biphasic positive airway pressure) dependence: (7) ARDS (adult respiratory distress syndrome): (8) Delirium tremens: (9) AMS (altered mental status): (10) Metabolic encephalopathy: (11) Influenzal pneumonia: Plan #Shortness of breath secondary to multifocal pneumonia #Sepsis secondary to multifocal pneumonia?criteria met by elevated lactic acid, tachycardia, acute hypoxia #Alcohol abuse #Alcohol withdrawal #History of alcohol withdrawal seizures #Recent upper respiratory illness #Noncompliance, does not follow with a doctor #Lactic acidosis #Untreated hepatitis C #Hyponatremia #Thrombocytopenia ? Placed on DuoNeb every 6 hours scheduled. Patient given Solu-Medrol 125 IV in the ER once ? Placed on Solu-Medrol 40 IV twice daily ? Check bacterial antigen and strep antigen ? Continue ceftriaxone azithromycin ? Placed on thiamine folic acid, CIWA protocol ? I will give 1 mg Ativan IV right now as patient is very anxious. ? Check CTA chest to rule out PE ? Check hepatitis profile ? Patient will need to be set up with primary care doctor and GI at time of discharge ? Will escalate to BiPAP at this time. Low threshold for intubation. Patient is a full code and agreeable to intubation if required. ? Check procalcitonin ? Elevated liver enzymes most likely secondary to untreated hepatitis. Bilirubin most likely secondary to liver disease as well. ? Check CT abdomen pelvis ? Check GGT ? Sodium 125 most likely secondary to alcohol abuse. Will check urine sodium, serum, urine osmolality ? Placed on normal saline 100 cc/h. Patient appears to be dehydrated. Chloride 83. ? EKG does show sinus tachycardia. Patient denies any chest pain at this time. Troponins negative x 3. ? Check vitamin B12 level. ? Initial lactic acid 4.2, repeat is reflex. ? Check lipid panel, hemoglobin A1c, TSH ? Will admit to ICU at this time. May use Precedex drip if needed Full code DVT prophylaxis: Heparin SQ twice daily 01/13/25: Admitted 01/11 with Hypoxia and alcohol withdrawal. Per life partner at bedside, he drinks a pint of drink every day. Last drink was on morning of admission. Patient is currently on precedex maxed at 1.2 at this time. Additionally has been receviing pushes of phenobarbital and Ativan. he is obtunded at this time. does not wake up to calling name or painful stimulus. On strenal rub, he starts to have significant tremors without any other meaningful response. Overall concern for delirium tremens, likely also with metabolic encephalopathy related to ARDS. Cannot r/o viral encephalitis at this time. Patient is currently in ARDS from multifocal PNA. Pa02 at 60% at 80% fi02 on Bipap. Pa02, fi02 ratio of 75 consistent with severe ARDS. We will proceed with intubation and mechanical ventilation today given poor mentation, inability to protect airway, obtunded on Bipap, severe ARDS and delirium tremens. Will obtain CT head once intubated. His partner is currently at bedside and updated regarding critical events. T max 100.6 He has been on rx with ceftriaxone and azithromyin. Add Vancomycin for additional MRSA coverage. Add Tamiflu 75mg BID Check MRSA nares. Check sputum cx and graim stain. Check Ammonia level . Blood cx negative thus far DVT ppx: heparin to d/c today due to thrombocytopenia, plt at 69 k today, SCDS onlt for now PUD ppx: protonix 40 mg daily January 14, 2025. Patient intubated yesterday by anesthesia. Patient noted to have clear almost bilious appearing contents come out of his ET tube. Suspect that may have aspirated upon initial arrival. Life partner reports that patient drinks at least a pint every day. Chest x- ray taken today showing persistent mixed interstitial and alveolar infiltrates bilaterally with small pleural effusions overall slightly worse compared to the day prior. Discontinue IV fluids as suspect fluid overload also contributing. Lasix 20 mg IV x 1 now. Assess for urine output and kidney function prior to administering further Lasix doses. Discontinue ceftriaxone. Broaden antibiotic coverage to meropenem 1 g IV every 8 hours for broader gram-negative coverage and also for anaerobic coverage with suspected aspiration. Continue vancomycin. Sputum culture currently pending. Continue azithromycin. Patient remains on respiratory support with mechanical ventilation at this point. High FiO2 requirement of 80%, PEEP of 10. ABG with hypoxic hypercapnic respiratory acidosis, not ready for vent weaning yet. Blood culture remains negative to date. Continue Tamiflu 75 mg twice daily. Ammonia level elevated at 83, possibly hepatic encephalopathy contributing to his overall encephalopathic picture. Started lactulose 20 every 6 hours overnight, today he is having diarrhea as a result. Will change lactulose to daily dosing at this point. Ammonia has serially improved over [address] head additionally performed today as he is noted to have some abrasions over his left temporal area and continues to be obtunded. No signs of acute intracranial hemorrhage or edema. There is mild bilateral frontal lobe atrophy likely related to alcohol abuse. Possibility of Warnicke's encephalopathy not excluded. Unable to get MRI while patient is on ventilator. Continue thiamine 100 mg daily. January 15, 2025 Received Lasix 20 mg IV last evening and then again this morning. He is overall net +6700 cc since admission[address] Will place him on 20 mg IV Lasix every 12 hours. Closely monitor for kidney function. Noted to have mild leukopenia today, likely related to acute infection, likely alcoholic hepatitis. Continue to monitor. Platelet counts improved at 100,000. Patient had spontaneous nosebleed yesterday therefore would not resume heparin currently. Attempts to wean down sedation this morning were not well-tolerated. Vent requirements slightly better today with FiO2 down to 60%. Continued attempts at weaning down requirements. Continue meropenem, vancomycin and azithromycin. Sputum culture pending. Tamiflu course to be completed for 5 days. January 16, 2025 Fi02 requirements down at 45% today. Continue meropenem, vancomycin and lasix. D/c azithromycin. Leukopenia, thrombocytopenia improving. D/c versed today, transition to Precedex with intention of vent weaning over the next 2-3 days. Less tachycardic today. Hopefully DTs resolving, however will only be clearly evident once extubated. Likely also has added components of hepatic encephaolpathy, metabolic encephalopathy from acute infection vs Wernicke's not excluded. Called to update life partner- no answer today PDMP PDMP Reviewed: Not Reviewed Attestations 2 Medical Necessity Statement*: continued ventilatory support as above, continue iv abx Critical Care Time: The high probability of a clinically significant, sudden or life threatening deterioration of the patient's [respiratory, cardiac, metabolic, PRODUCTION ADMINISTRATIVE ASSISTANT] system(s) required my full and direct attention, intervention and personal management. The critical care time is as shown. This time is in addition to time spent performing any reported procedures but includes the following: [x] Data and vital sign review and interpretation [x] Patient assessment, examination and intervention [x] Documentation [x] Medication orders and management Coding Level of Care Code Critical Care >/= 30 minutes Diagnoses Multifocal pneumonia J18.9 Alcohol abuse F10.10 Alcohol withdrawal seizure F10.939; R56.9 Thrombocytopenia D69.6 Hyponatremia E87.1 BiPAP (biphasic positive airway pressure) dependence Z99.89 ARDS (adult respiratory distress syndrome) J80 Delirium tremens F10.931 AMS (altered mental status) R41.82 Metabolic encephalopathy G93.41 Influenzal pneumonia J11.00
[2025-01-16] MEDS: lanolin oint 7 gm 1 APPLIC TOPICAL (19:08)
--- NOTE | 2025-01-16 19:44 | PC.NURSE ---
Shift summary: Pt remains sedated and intubated. Sedation medications changed: versed stopped, Precedex started, now infusing at 0.8mcg/kg/hr. fentanyl rate increased to 150 mcg/hr early this afternoon, now at 125. Propofol increased to 80 mcg/kg/hr this afternoon. Pt starts thrashing around, sweating and copious oral secretions noted whenever Propofol paused for more than just a couple of minutes. His vent settings has changed some, TV increased, Respiratory rate decreased and FIO2 decreased to 45. He is afebrile. Sinus rhtyhm noted on monitor except for when Propofol paused he then becomes sinus tachy. He is tolerating his medications per the OG. 1175 ml of urinary output. NO Bm noted this shift.
[2025-01-16] MEDS: fentaNYL 1,000 MCG/100 ML BAG 12.5 MCG IV (20:05)
[2025-01-16] MEDS: dexmedeTOMIDine 0.9 % NaCL 400 MCG/100 ML PREMIX 18.86 MCG IV (20:37)
[2025-01-16] MEDS: chlorhexidine gluconate 4% Btl 118 mL 1 APPLIC TOPICAL (23:04)
[2025-01-17] VITALS (74 sets, daily range): BP systolic 93–176; BP diastolic 53–104; PULSE 57–119; RESP 14–52; TEMP 36.9–37.7; O2SAT 85–99
[2025-01-17] MEDS: dexmedeTOMIDine 0.9 % NaCL 400 MCG/100 ML PREMIX 16.17 MCG IV ×2 (01:02→07:53)
[2025-01-17] MEDS: propofol 1,000 MG/100 ML INJ 47.46 MG IV ×2 (01:19→18:10)
[2025-01-17 01:22] LABS: ABG PCO2 44.1 mmHg (35-45); ABG PH Result 7.42 (7.35-7.45); Arterial Blood Gas Hematocrit 40.7 % (42-52); Base Excess ABG 3.6 mmol/L (-2.0-2.0); Blood Gas Operator Identificat SAM; Blood Gas Sample Site Brachial, right; Blood Gas Sample Type Arterial; HCO3 ABG 28.7 mmol/L (22-26); Oxygen Device VENT; PO2 ABG 86.4 mmHg (80.0-100.0); PO2 FiO2 Ratio Arterial Blood 216
[2025-01-17] MEDS: meropenem 1,000 mg SDV 1000 MG IVP ×3 (03:38→20:08)
[2025-01-17] MEDS: FUROsemide 10 mg/mL SDV 2mL 20 MG IVP (03:43)
[2025-01-17] MEDS: propofol 1,000 MG/100 ML INJ 38.56 MG IV (03:46)
[2025-01-17 04:14] LABS: Basophils % 0.2 %; Eosinophils % 0.2 %; Hematocrit 38.8 % (37-53); Lymphocytes # 0.9 10^3/uL (0.8-4.8); Lymphocytes % 20.9 %; Mean Corpuscular HGB Conc 32.7 g/dL (30-55); Mean Corpuscular Hemoglobin 36.4 pg (27-33); Mean Corpuscular Volume 111.2 fl (82-101); Mean Platelet Volume 10.6 fL (7.4-10.4); Monocytes # 0.2 10^3/uL (0.2-0.9); Monocytes % 5.3 %; Neutrophils # 3.13 10^3/uL (1.8-7.7); Neutrophils % 71.8 %; Nucleated Red Blood Cells % 0 %; Platelet Count 179 10^3/cmm (157-399); Red Blood Count 3.49 10^6/uL (3.85-5.65); Red Cell Distribution Width 14.9 % (12.1-15.1); White Blood Count 4.36 10^3/uL (3.29-11.43)
[2025-01-17 04:34] LABS: Alanine Aminotransferase 108 U/L (0-41); Alkaline Phosphatase 193 U/L (40-130); Anion Gap 13.6 (5-19); Aspartate Amino Transferase 166 U/L (0-40); Blood Urea Nitrogen 30 mg/dL (6-20); Calcium 8.3 mg/dL (8.5-10.5); Carbon Dioxide 27 mmol/L (22-29); Chloride 104 mmol/L (98-107); Creatinine Clr Calc Pharmacy 169.6305; Globulin 3.2 g/dL (1.3-4.6); Glomerular Filtration Rate 138.9 mL/min (90-130); Glucose 115 mg/dL (65-115); Osmolality Calculated 299 mOsm/kg (285-295); Potassium 3.6 mmol/L (3.5-5.1); Sodium 141 mmol/L (136-145); Total Bilirubin 1.3 mg/dL (0.15-1.2); Total Protein 6.2 g/dL (6.6-8.7)
--- NOTE | 2025-01-17 04:45 | PC.NURSE ---
Addendum entered by Deborah Ohara RN 01/17/25 05:53: Carlos Lee RN waste 37 ml of versed. Original Note: Versed Waste: 37ml Versed wasted w/ SANTHOSH Cabrera.
[2025-01-17] MEDS: fentaNYL 1,000 MCG/100 ML BAG 10 MCG IV ×2 (05:00→21:37)
[2025-01-17] MEDS: propofol 1,000 MG/100 ML INJ 26.7 MG IV (07:10)
[2025-01-17] MEDS: folic acid 1 mg Tablet PO (08:02)
[2025-01-17] MEDS: multivitamin therapeutic Tablet 1 TAB PO (08:02)
[2025-01-17] MEDS: oseltamivir phosphate 75 mg Capsule NG-TUBE ×2 (08:02→18:55)
[2025-01-17] MEDS: thiamine 100 mg Tablet PO (08:02)
[2025-01-17] MEDS: ipratropium-albuterol 3 mL Neb INHALATION ×4 (08:04→19:48)
[2025-01-17] MEDS: VANCOMYCIN ADD-Vantage 1,000 MG in 0.9% NaCl ADD-Vantage 250 ML 250 MG IV ×2 (08:05→20:08)
[2025-01-17] MEDS: lactulose oral liq 20 gm/30 mL UDC PO (08:05)
[2025-01-17] MEDS: pantoprazole 40 mg SDV IVP (08:06)
--- NOTE | 2025-01-17 08:20 | PC.NURSE ---
Weaning sedation off for spontaneous breathing trial and probable extubation. Fentanyl down to 10 mcg/hr. Precedex started.
--- NOTE | 2025-01-17 09:45 | PC.NURSE ---
OG noted laying in the floor. Pt thrashing his head side to side. at bedside attempting to reassure pt. Propofol stopped. Precedex gtt increased. Fentanyl stopped.
--- NOTE | 2025-01-17 10:35 | PC.NURSE ---
Pt extubated to 6lpm/NC. Pt thrashing his had around yelling help . at bedside trying to calm and reassure pt.
[2025-01-17] MEDS: dexmedeTOMIDine 0.9 % NaCL 400 MCG/100 ML PREMIX 26.94 MCG IV (11:59)
[2025-01-17] MEDS: haloperidol inj 5 mg/mL INJ 1 mL IM (11:59)
[2025-01-17] MEDS: LORazepam 2 mg/mL INJ 1 mL IVP ×2 (12:00→14:33)
--- NOTE | 2025-01-17 12:00 | PC.NURSE ---
Pt still thrashing around bed, yelling help. Attempting to remove oxygen which at this time is HHF 50L and 50%. remains at bedside continuing her attempts to calm pt. Restraints off, hoping it helps pt settle down. It did not. Pt has swung at his and attempted to bite her. Pt has swung at staff during attempts to reposition him back up in the bed. Pt also attempted to bite staff during staff attempts to place HHF back into pt's nose. Dr Guzmán notified of his continuing to struggle, BP now elevated (SBP 170's), tachycardia, tachypneic and hsi face very red. Orders for Haldol 5mg IM and Ativan 2 mg IVP, and to increase Precedex gtt to 1.5 mcg/kg/hr received and admin. encouraged to let pt alone to rest . Will continue to monitor.
[2025-01-17] MEDS: ziprasidone 20 mg/mL SDV 10 MG IM ×2 (12:20→13:45)
[2025-01-17] MEDS: lanolin oint 7 gm 1 APPLIC TOPICAL (12:23)
[2025-01-17] MEDS: morphine 4 mg/mL SDV 1 mL IVP (13:09)
--- NOTE | 2025-01-17 13:45 | PC.NURSE ---
Pt continues to be red faced and thrashing around in the bed. Geodon 10 mg IM admin as ordered.
[2025-01-17] MEDS: methylPREDNISolone sod succ 40 mg/mL INJ IVP (14:21)
[2025-01-17] MEDS: dexmedeTOMIDine 0.9 % NaCL 400 MCG/100 ML PREMIX 40.42 MCG IV (14:21)
--- NOTE | 2025-01-17 14:41 | PC.NURSE ---
Fentanyl gtt wasted. See MAR. Witness by Negar Sexton
--- NOTE | 2025-01-17 15:21 | P.PN_ITS ---
Subjective 2 Subjective: Patient's blood gas this morning looks much improved. ABG 7.4, CO2 44, pO2 86, bicarb 28.7. On vent settings of 40% FiO2, PEEP of 8. Lung sounds sound much improved. Patient was successfully extubated this morning. To heated high flow. Medications: Reviewed: Yes Vitals/I&O/Wt Last Vital Signs Temp 99.8 F H 01/17/25 10:30 Pulse 108 H 01/17/25 14:30 Resp 29 H 01/17/25 14:30 BP 158/93 01/17/25 14:30 Pulse Ox 91 01/17/25 14:30 O2 Del Method Heated High Flow 01/17/25 14:30 O2 Flow Rate 50 01/17/25 14:30 FiO2 70 01/17/25 14:30 01/17/25 01/17/25 01/17/25 06:59 14:59 22:59 Intake Total 694.016 / 2249.116 666.368 / 666.368 Output Total 1950 / 3125 Balance -1255.984 / -875.884 666.368 / 666.368 Weight last 48 hrs Weight 104.281 kg Weight 107.774 kg Physical Exam 2 Narrative: General: Extubated earlier today. Continues to be lethargic. HEENT: PERRLA, pupils bilaterally equal and reactive, pallors not present Chest: Coarse crackles bilaterally CVS: S1-S2 regular, no murmurs, no tachycardia, no gallops, no rubs Abdomen: Soft, nontender, no organomegaly, bowel sounds present Urinary Catheter Management: Sadler: Cath Placed During This Visit: yes Reason for Continuing Indwelling Catheter: Accurate Measurement of Urinary Output in Critically Ill Patients Urinary Catheter Date of Insertion: 01/12/25 Urinary Catheter Time of Insertion: 22:00 Data 01/17/25 03:37 01/17/25 03:37 Micro: Microbiology 01/12/25 15:03 Blood Culture - Final Blood NO GROWTH AFTER 5 DAYS 01/12/25 15:06 Blood Culture - Final Blood NO GROWTH AFTER 5 DAYS A&P Assessment and plan (1) Multifocal pneumonia: (2) Alcohol abuse: (3) Alcohol withdrawal seizure: (4) Thrombocytopenia: (5) Hyponatremia: (6) BiPAP (biphasic positive airway pressure) dependence: (7) ARDS (adult respiratory distress syndrome): (8) Delirium tremens: (9) AMS (altered mental status): (10) Metabolic encephalopathy: (11) Influenzal pneumonia: Plan #Shortness of breath secondary to multifocal pneumonia #Sepsis secondary to multifocal pneumonia?criteria met by elevated lactic acid, tachycardia, acute hypoxia #Alcohol abuse #Alcohol withdrawal #History of alcohol withdrawal seizures #Recent upper respiratory illness #Noncompliance, does not follow with a doctor #Lactic acidosis #Untreated hepatitis C #Hyponatremia #Thrombocytopenia ? Placed on DuoNeb every 6 hours scheduled. Patient given Solu-Medrol 125 IV in the ER once ? Placed on Solu-Medrol 40 IV twice daily ? Check bacterial antigen and strep antigen ? Continue ceftriaxone azithromycin ? Placed on thiamine folic acid, CIWA protocol ? I will give 1 mg Ativan IV right now as patient is very anxious. ? Check CTA chest to rule out PE ? Check hepatitis profile ? Patient will need to be set up with primary care doctor and GI at time of discharge ? Will escalate to BiPAP at this time. Low threshold for intubation. Patient is a full code and agreeable to intubation if required. ? Check procalcitonin ? Elevated liver enzymes most likely secondary to untreated hepatitis. Bilirubin most likely secondary to liver disease as well. ? Check CT abdomen pelvis ? Check GGT ? Sodium 125 most likely secondary to alcohol abuse. Will check urine sodium, serum, urine osmolality ? Placed on normal saline 100 cc/h. Patient appears to be dehydrated. Chloride 83. ? EKG does show sinus tachycardia. Patient denies any chest pain at this time. Troponins negative x 3. ? Check vitamin B12 level. ? Initial lactic acid 4.2, repeat is reflex. ? Check lipid panel, hemoglobin A1c, TSH ? Will admit to ICU at this time. May use Precedex drip if needed Full code DVT prophylaxis: Heparin SQ twice daily 01/13/25: Admitted 01/11 with Hypoxia and alcohol withdrawal. Per life partner at bedside, he drinks a pint of drink every day. Last drink was on morning of admission. Patient is currently on precedex maxed at 1.2 at this time. Additionally has been receviing pushes of phenobarbital and Ativan. he is obtunded at this time. does not wake up to calling name or painful stimulus. On strenal rub, he starts to have significant tremors without any other meaningful response. Overall concern for delirium tremens, likely also with metabolic encephalopathy related to ARDS. Cannot r/o viral encephalitis at this time. Patient is currently in ARDS from multifocal PNA. Pa02 at 60% at 80% fi02 on Bipap. Pa02, fi02 ratio of 75 consistent with severe ARDS. We will proceed with intubation and mechanical ventilation today given poor mentation, inability to protect airway, obtunded on Bipap, severe ARDS and delirium tremens. Will obtain CT head once intubated. His partner is currently at bedside and updated regarding critical events. T max 100.6 He has been on rx with ceftriaxone and azithromyin. Add Vancomycin for additional MRSA coverage. Add Tamiflu 75mg BID Check MRSA nares. Check sputum cx and graim stain. Check Ammonia level . Blood cx negative thus far DVT ppx: heparin to d/c today due to thrombocytopenia, plt at 69 k today, SCDS onlt for now PUD ppx: protonix 40 mg daily January 14, 2025. Patient intubated yesterday by anesthesia. Patient noted to have clear almost bilious appearing contents come out of his ET tube. Suspect that may have aspirated upon initial arrival. Life partner reports that patient drinks at least a pint every day. Chest x- ray taken today showing persistent mixed interstitial and alveolar infiltrates bilaterally with small pleural effusions overall slightly worse compared to the day prior. Discontinue IV fluids as suspect fluid overload also contributing. Lasix 20 mg IV x 1 now. Assess for urine output and kidney function prior to administering further Lasix doses. Discontinue ceftriaxone. Broaden antibiotic coverage to meropenem 1 g IV every 8 hours for broader gram-negative coverage and also for anaerobic coverage with suspected aspiration. Continue vancomycin. Sputum culture currently pending. Continue azithromycin. Patient remains on respiratory support with mechanical ventilation at this point. High FiO2 requirement of 80%, PEEP of 10. ABG with hypoxic hypercapnic respiratory acidosis, not ready for vent weaning yet. Blood culture remains negative to date. Continue Tamiflu 75 mg twice daily. Ammonia level elevated at 83, possibly hepatic encephalopathy contributing to his overall encephalopathic picture. Started lactulose 20 every 6 hours overnight, today he is having diarrhea as a result. Will change lactulose to daily dosing at this point. Ammonia has serially improved over [address] head additionally performed today as he is noted to have some abrasions over his left temporal area and continues to be obtunded. No signs of acute intracranial hemorrhage or edema. There is mild bilateral frontal lobe atrophy likely related to alcohol abuse. Possibility of Warnicke's encephalopathy not excluded. Unable to get MRI while patient is on ventilator. Continue thiamine 100 mg daily. January 15, 2025 Received Lasix 20 mg IV last evening and then again this morning. He is overall net +6700 cc since admission[address] Will place him on 20 mg IV Lasix every 12 hours. Closely monitor for kidney function. Noted to have mild leukopenia today, likely related to acute infection, likely alcoholic hepatitis. Continue to monitor. Platelet counts improved at 100,000. Patient had spontaneous nosebleed yesterday therefore would not resume heparin currently. Attempts to wean down sedation this morning were not well-tolerated. Vent requirements slightly better today with FiO2 down to 60%. Continued attempts at weaning down requirements. Continue meropenem, vancomycin and azithromycin. Sputum culture pending. Tamiflu course to be completed for 5 days. January 16, 2025 Fi02 requirements down at 45% today. Continue meropenem, vancomycin and lasix. D/c azithromycin. Leukopenia, thrombocytopenia improving. D/c versed today, transition to Precedex with intention of vent weaning over the next 2-3 days. Less tachycardic today. Hopefully DTs resolving, however will only be clearly evident once extubated. Likely also has added components of hepatic encephaolpathy, metabolic encephalopathy from acute infection vs Wernicke's not excluded. Called to update life partner- no answer today January 17, 2025 FiO2 requirements and PEEP were improved today. Patient was extubated this morning, he remained calm only for a short while afterwards. Thereafter he has been on maximum dose of Precedex at 1.5, he has received Geodon 10 mg IM, received Haldol 5 mg IM, Ativan 2 mg IV however continues to be agitated. Postextubation he is additionally tachycardic, Tmax 99.8 Fahrenheit. He remains encephalopathic. His last drink was on the day of admission on January 12, 2025. I am uncertain if DTs would explain his persisting encephalopathy. I had plan to obtain an MRI once patient was extubated, however he is currently unable to lay flat to be able to proceed with the MRI imaging to look for Wernicke's encephalopathy. Will presumptively give him thiamine 500 mg IV x 1 and continue daily maintenance dosing. Will recheck ammonia level. Yesterday it was trending down at 42. He has not had a bowel movement today. CT of his head was earlier negative for stroke. Discussed with his significant other that patient is at a high risk of reintubation given his extreme agitation and potential for injury to self due to uncontrolled agitation. She is agreeable to reintubate if needed. Continue meropenem and IV vancomycin. PDMP PDMP Reviewed: Not Reviewed Attestations 2 Medical Necessity Statement*: Needs to be closely monitored for persisting encephalopathy and persisting agitation. High risk of reintubation. Coding Level of Care Code Acute Code for g Fwd Diagnoses Multifocal pneumonia J18.9 Alcohol abuse F10.10 Alcohol withdrawal seizure F10.939; R56.9 Thrombocytopenia D69.6 Hyponatremia E87.1 BiPAP (biphasic positive airway pressure) dependence Z99.89 ARDS (adult respiratory distress syndrome) J80 Delirium tremens F10.931 AMS (altered mental status) R41.82 Metabolic encephalopathy G93.41 Influenzal pneumonia J11.00
--- NOTE | 2025-01-17 16:00 | PC.NURSE ---
Pt continues to thrash. HHF at 50 L and 70%. He is not tolerating well. tachypnea, tachycadai and hypertension continues. Dr Aleman is now on unit witnssing his struggle. Decision to intubate made.
--- NOTE | 2025-01-17 16:12 | XRR_ITS ---
PROCEDURE INFORMATION: Exam: XR Chest Exam date and time: 01/17/2025 4:25 PM Age: 59 years old Clinical indication: Device placement; Other: Ett and og tube placement; Additional info: Post intubation TECHNIQUE: Imaging protocol: Radiologic exam of the chest. Views: 1 view. COMPARISON: CR (CHEST, ) 01/16/2025 4:35 AM FINDINGS: Tubes, catheters and devices: The endotracheal tube tip is again seen approximately 4 cm above the hunter. The nasogastric tube tip is again seen in the proximal to mid stomach. Lungs: There is persistent airspace disease, particularly at the left lung base, compatible with multifocal pneumonia. Pleural spaces: No significant pleural effusion. No pneumothorax. Heart/Mediastinum: Within normal limits. No cardiomegaly. Bones/joints: Intact. Other findings: None. XR/XR chest 1V portable [id number] IMPRESSION: 1. Endotracheal and nasogastric tube unchanged. 2. Persistent multifocal pneumonia, particularly at the left lung base, not significantly changed.
[2025-01-17] MEDS: propofol 1,000 MG/100 ML INJ 29.67 MG IV (16:19)
[2025-01-17] MEDS: etomidate 2 mg/mL INJ SDV 10 mL 20 MG IVP (16:19)
[2025-01-17] MEDS: succinylcholine 20 mg/mL SDV 10mL 100 MG IVP (16:19)
[2025-01-17] MEDS: fentaNYL 1,000 MCG/100 ML BAG 2.5 MCG IV (16:20)
[2025-01-17] MEDS: midazolam hcl 100 MG/100 ML BAG IV (16:22)
[2025-01-17] MEDS: thiamine 500 MG in sodium chloride 0.9% (100 ml) 100 ML 210 MG IV (16:23)
--- NOTE | 2025-01-17 16:35 | PC.NURSE ---
Pt intubated by Anesthesia. Fio2 70%. Versed, fentanyl and propofol started. Precedex to be stopped per D Erisa OG inserted. Placement confirmed by auscultation. Xray ordered and being done.
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
[2025-01-17 17:14] LABS: ABG PH Result 7.43 (7.35-7.45); Alveolar-Arterial Oxygen Gradi 42.6 mmHg (5-10); Arterial Blood Gas Hematocrit 40.5 % (42-52); Base Excess ABG 3.9 mmol/L (-2.0-2.0); Blood Gas Allen Test Pos; Blood Gas Operator Identificat CAK; Blood Gas Sample Site Radial, left; Blood Gas Sample Type Arterial; Carboxyhemoglobin 0.9 %THgb (0.4-20.1); HCO3 ABG 28.7 mmol/L (22-26); HGB O2 Sat 96.9 % (95-100); Ionized Calcium Level - ABG 1.1 mmol/L (1.1-1.4); Methemoglobin 1.2 % (0.4-1.5); Oxygen Device VENT; PO2 FiO2 Ratio Arterial Blood 178; Potassium Level - ABG 2.9 mmol/L (3.5-5.0); Total Hemoglobin 13.2 g/dL (14-18)
--- NOTE | 2025-01-17 20:00 | PC.NURSE ---
Shift summary: Pt unable to tolerate being extubated and needed to be re-intubated 6 hour later. He would not follow commands. He became extremely agitated. He is now sedated with Fetanyl at 75 mcf/hr, Versed 3 mg/hr and Propofol at 70 mcg/kg/min. He is now resting with eyes closed. His color is no longer nehal and purple it is WNL. Sinus rhtyhm and BP WNL noted on monitor. HIs urine is dark heron now, he had 1300ml output. He was incontinent of loose Bm this evening.
[2025-01-17] MEDS: propofol 1,000 MG/100 ML INJ 41.53 MG IV ×2 (20:17→22:18)
[2025-01-18] VITALS (65 sets, daily range): BP systolic 92–143; BP diastolic 57–91; PULSE 73–103; RESP 14–26; TEMP 36.3–37.6; O2SAT 91–100
[2025-01-18] MEDS: propofol 1,000 MG/100 ML INJ 38.56 MG IV ×2 (00:49→03:20)
[2025-01-18] MEDS: meropenem 1,000 mg SDV 1000 MG IVP ×3 (03:20→19:54)
[2025-01-18] MEDS: fentaNYL 1,000 MCG/100 ML BAG 17.5 MCG IV (03:48)
[2025-01-18] MEDS: propofol 1,000 MG/100 ML INJ 41.53 MG IV (05:46)
[2025-01-18] MEDS: ipratropium-albuterol 3 mL Neb INHALATION ×4 (07:57→19:32)
[2025-01-18] MEDS: vancomycin 1,250 MG/250 ML PIGGYBACK 166.67 MG IV ×2 (08:07→19:53)
[2025-01-18] MEDS: fentaNYL 1,000 MCG/100 ML BAG 20 MCG IV ×2 (08:07→12:30)
[2025-01-18] MEDS: thiamine 100 mg Tablet PO (08:08)
[2025-01-18] MEDS: multivitamin therapeutic Tablet 1 TAB PO (08:08)
[2025-01-18] MEDS: folic acid 1 mg Tablet PO (08:08)
[2025-01-18] MEDS: pantoprazole 40 mg SDV IVP (08:08)
[2025-01-18] MEDS: oseltamivir phosphate 75 mg Capsule NG-TUBE (08:08)
[2025-01-18] MEDS: lactulose oral liq 20 gm/30 mL UDC PO (08:08)
[2025-01-18] MEDS: propofol 1,000 MG/100 ML INJ 47.46 MG IV ×8 (08:09→23:06)
--- NOTE | 2025-01-18 10:24 | XRR_ITS ---
PROCEDURE INFORMATION: Exam: XR Chest Exam date and time: 01/18/2025 12:07 PM Age: 59 years old Clinical indication: Device placement; Ng tube; Og confirmation; Additional info: Og tube placement TECHNIQUE: Imaging protocol: Radiologic exam of the chest. Views: 1 view. COMPARISON: CR XR chest 1V portable [id number] 01/17/2025 4:25 PM FINDINGS: Tubes, catheters and devices: Orogastric tube terminates in the abdomen, tip not included on the images. Lungs: Bilateral lower lobe pulmonary infiltrates, left greater than right stable. Pleural spaces: Unremarkable. No pleural effusion. No pneumothorax. Heart/Mediastinum: Unremarkable. No cardiomegaly. Bones/joints: Unremarkable. Other findings: Unchanged life support lines. XR/XR chest 1V portable [id number] IMPRESSION: No significant change.
[2025-01-18 10:44] LABS: Creatinine Clr Calc Pharmacy 247.7896; Glomerular Filtration Rate 221.7 mL/min (90-130)
[2025-01-18] MEDS: midazolam hcl 100 MG/100 ML BAG IV (12:43)
[2025-01-18 13:14] LABS: Basophils % 0.2 %; Eosinophils # 0.1 10^3/uL (0.0-0.8); Eosinophils % 1.6 %; Hematocrit 35.7 % (37-53); Lymphocytes # 0.8 10^3/uL (0.8-4.8); Lymphocytes % 13.2 %; Mean Corpuscular HGB Conc 32.5 g/dL (30-55); Mean Corpuscular Hemoglobin 35.8 pg (27-33); Mean Corpuscular Volume 110.2 fl (82-101); Mean Platelet Volume 10.9 fL (7.4-10.4); Monocytes # 0.3 10^3/uL (0.2-0.9); Monocytes % 4.4 %; Neutrophils # 5.04 10^3/uL (1.8-7.7); Neutrophils % 79.2 %; Nucleated Red Blood Cells % 0 %; Platelet Count 202 10^3/cmm (157-399); Red Blood Count 3.24 10^6/uL (3.85-5.65); Red Cell Distribution Width 14.7 % (12.1-15.1); White Blood Count 6.36 10^3/uL (3.29-11.43)
[2025-01-18 13:27] LABS: Alanine Aminotransferase 91 U/L (0-41); Albumin Level 2.7 g/dL (3.5-5.2); Alkaline Phosphatase 191 U/L (40-130); Aspartate Amino Transferase 81 U/L (0-40); Blood Urea Nitrogen 23 mg/dL (6-20); Calcium 8.2 mg/dL (8.5-10.5); Carbon Dioxide 28 mmol/L (22-29); Chloride 106 mmol/L (98-107); Creatinine Clr Calc Pharmacy 165.1931; Globulin 3.1 g/dL (1.3-4.6); Glomerular Filtration Rate 138.9 mL/min (90-130); Glucose 115 mg/dL (65-115); Osmolality Calculated 305 mOsm/kg (285-295); Sodium 145 mmol/L (136-145); Total Bilirubin 1.2 mg/dL (0.15-1.2); Total Protein 5.8 g/dL (6.6-8.7)
[2025-01-18] MEDS: methylPREDNISolone sod succ 40 mg/mL INJ IVP (14:11)
[2025-01-18] MEDS: fentaNYL 2,500 MCG/250 ML BAG 20 MCG IV (16:46)
--- NOTE | 2025-01-18 18:01 | P.PN_ITS ---
Subjective 2 Subjective: Patient was reintubated yesterday due to persisting agitation. Postintubation ABG showing pH of 7.43, pCO2 of 43, pO2 of 125, bicarb 28.7 on 70% FiO2, PEEP of 10. Medications: Reviewed: Yes Vitals/I&O/Wt Last Vital Signs Temp 98 F 01/18/25 15:29 Pulse 101 H 01/18/25 16:30 Resp 17 01/18/25 17:25 BP 121/72 01/18/25 16:30 Pulse Ox 95 01/18/25 17:25 O2 Del Method Mechanical Ventilation 01/18/25 15:30 O2 Flow Rate 50 01/17/25 16:00 FiO2 50 01/18/25 17:25 01/18/25 01/18/25 01/18/25 06:59 14:59 22:59 Intake Total 428.696 / 1962.854 822.132 / 822.132 200 / 1022.132 Output Total 100 / 1400 Balance 328.696 / 562.854 822.132 / 822.132 200 / 1022.132 Weight last 48 hrs Weight 102 kg Weight 104.281 kg Physical Exam 2 Narrative: General: Intubated, sedated HEENT: PERRLA, pupils bilaterally equal and reactive, pallors not present Chest: Clear to auscultation bilaterally CVS: S1-S2 regular, no murmurs, no tachycardia, no gallops, no rubs Abdomen: Soft, nontender, no organomegaly, bowel sounds present Neuro: Unable to assess Urinary Catheter Management: Sadler: Cath Placed During This Visit: yes Reason for Continuing Indwelling Catheter: Accurate Measurement of Urinary Output in Critically Ill Patients Urinary Catheter Date of Insertion: 01/12/25 Urinary Catheter Time of Insertion: 22:00 Data 01/19/25 04:23 01/19/25 04:23 Micro: Microbiology 01/17/25 16:40 Gram Stain - Final Sputum - Endotracheal Tube Aspirate Sputum Culture - Preliminary 01/12/25 15:03 Blood Culture - Final Blood NO GROWTH AFTER 5 DAYS 01/12/25 15:06 Blood Culture - Final Blood NO GROWTH AFTER 5 DAYS A&P Assessment and plan (1) Multifocal pneumonia: (2) Alcohol abuse: (3) Alcohol withdrawal seizure: (4) Thrombocytopenia: (5) Hyponatremia: (6) BiPAP (biphasic positive airway pressure) dependence: (7) ARDS (adult respiratory distress syndrome): (8) Delirium tremens: (9) AMS (altered mental status): (10) Metabolic encephalopathy: (11) Influenzal pneumonia: Plan #Shortness of breath secondary to multifocal pneumonia #Sepsis secondary to multifocal pneumonia?criteria met by elevated lactic acid, tachycardia, acute hypoxia #Alcohol abuse #Alcohol withdrawal #History of alcohol withdrawal seizures #Recent upper respiratory illness #Noncompliance, does not follow with a doctor #Lactic acidosis #Untreated hepatitis C #Hyponatremia #Thrombocytopenia ? Placed on DuoNeb every 6 hours scheduled. Patient given Solu-Medrol 125 IV in the ER once ? Placed on Solu-Medrol 40 IV twice daily ? Check bacterial antigen and strep antigen ? Continue ceftriaxone azithromycin ? Placed on thiamine folic acid, CIWA protocol ? I will give 1 mg Ativan IV right now as patient is very anxious. ? Check CTA chest to rule out PE ? Check hepatitis profile ? Patient will need to be set up with primary care doctor and GI at time of discharge ? Will escalate to BiPAP at this time. Low threshold for intubation. Patient is a full code and agreeable to intubation if required. ? Check procalcitonin ? Elevated liver enzymes most likely secondary to untreated hepatitis. Bilirubin most likely secondary to liver disease as well. ? Check CT abdomen pelvis ? Check GGT ? Sodium 125 most likely secondary to alcohol abuse. Will check urine sodium, serum, urine osmolality ? Placed on normal saline 100 cc/h. Patient appears to be dehydrated. Chloride 83. ? EKG does show sinus tachycardia. Patient denies any chest pain at this time. Troponins negative x 3. ? Check vitamin B12 level. ? Initial lactic acid 4.2, repeat is reflex. ? Check lipid panel, hemoglobin A1c, TSH ? Will admit to ICU at this time. May use Precedex drip if needed Full code DVT prophylaxis: Heparin SQ twice daily 01/13/25: Admitted 01/11 with Hypoxia and alcohol withdrawal. Per life partner at bedside, he drinks a pint of drink every day. Last drink was on morning of admission. Patient is currently on precedex maxed at 1.2 at this time. Additionally has been receviing pushes of phenobarbital and Ativan. he is obtunded at this time. does not wake up to calling name or painful stimulus. On strenal rub, he starts to have significant tremors without any other meaningful response. Overall concern for delirium tremens, likely also with metabolic encephalopathy related to ARDS. Cannot r/o viral encephalitis at this time. Patient is currently in ARDS from multifocal PNA. Pa02 at 60% at 80% fi02 on Bipap. Pa02, fi02 ratio of 75 consistent with severe ARDS. We will proceed with intubation and mechanical ventilation today given poor mentation, inability to protect airway, obtunded on Bipap, severe ARDS and delirium tremens. Will obtain CT head once intubated. His partner is currently at bedside and updated regarding critical events. T max 100.6 He has been on rx with ceftriaxone and azithromyin. Add Vancomycin for additional MRSA coverage. Add Tamiflu 75mg BID Check MRSA nares. Check sputum cx and graim stain. Check Ammonia level . Blood cx negative thus far DVT ppx: heparin to d/c today due to thrombocytopenia, plt at 69 k today, SCDS onlt for now PUD ppx: protonix 40 mg daily January 14, 2025. Patient intubated yesterday by anesthesia. Patient noted to have clear almost bilious appearing contents come out of his ET tube. Suspect that may have aspirated upon initial arrival. Life partner reports that patient drinks at least a pint every day. Chest x- ray taken today showing persistent mixed interstitial and alveolar infiltrates bilaterally with small pleural effusions overall slightly worse compared to the day prior. Discontinue IV fluids as suspect fluid overload also contributing. Lasix 20 mg IV x 1 now. Assess for urine output and kidney function prior to administering further Lasix doses. Discontinue ceftriaxone. Broaden antibiotic coverage to meropenem 1 g IV every 8 hours for broader gram-negative coverage and also for anaerobic coverage with suspected aspiration. Continue vancomycin. Sputum culture currently pending. Continue azithromycin. Patient remains on respiratory support with mechanical ventilation at this point. High FiO2 requirement of 80%, PEEP of 10. ABG with hypoxic hypercapnic respiratory acidosis, not ready for vent weaning yet. Blood culture remains negative to date. Continue Tamiflu 75 mg twice daily. Ammonia level elevated at 83, possibly hepatic encephalopathy contributing to his overall encephalopathic picture. Started lactulose 20 every 6 hours overnight, today he is having diarrhea as a result. Will change lactulose to daily dosing at this point. Ammonia has serially improved over [address] head additionally performed today as he is noted to have some abrasions over his left temporal area and continues to be obtunded. No signs of acute intracranial hemorrhage or edema. There is mild bilateral frontal lobe atrophy likely related to alcohol abuse. Possibility of Warnicke's encephalopathy not excluded. Unable to get MRI while patient is on ventilator. Continue thiamine 100 mg daily. January 15, 2025 Received Lasix 20 mg IV last evening and then again this morning. He is overall net +6700 cc since admission[address] Will place him on 20 mg IV Lasix every 12 hours. Closely monitor for kidney function. Noted to have mild leukopenia today, likely related to acute infection, likely alcoholic hepatitis. Continue to monitor. Platelet counts improved at 100,000. Patient had spontaneous nosebleed yesterday therefore would not resume heparin currently. Attempts to wean down sedation this morning were not well-tolerated. Vent requirements slightly better today with FiO2 down to 60%. Continued attempts at weaning down requirements. Continue meropenem, vancomycin and azithromycin. Sputum culture pending. Tamiflu course to be completed for 5 days. January 16, 2025 Fi02 requirements down at 45% today. Continue meropenem, vancomycin and lasix. D/c azithromycin. Leukopenia, thrombocytopenia improving. D/c versed today, transition to Precedex with intention of vent weaning over the next 2-3 days. Less tachycardic today. Hopefully DTs resolving, however will only be clearly evident once extubated. Likely also has added components of hepatic encephaolpathy, metabolic encephalopathy from acute infection vs Wernicke's not excluded. Called to update life partner- no answer today January 17, 2025 FiO2 requirements and PEEP were improved today. Patient was extubated this morning, he remained calm only for a short while afterwards. Thereafter he has been on maximum dose of Precedex at 1.5, he has received Geodon 10 mg IM, received Haldol 5 mg IM, Ativan 2 mg IV however continues to be agitated. Postextubation he is additionally tachycardic, Tmax 99.8 Fahrenheit. He remains encephalopathic. His last drink was on the day of admission on January 12, 2025. I am uncertain if DTs would explain his persisting encephalopathy. I had plan to obtain an MRI once patient was extubated, however he is currently unable to lay flat to be able to proceed with the MRI imaging to look for Wernicke's encephalopathy. Will presumptively give him thiamine 500 mg IV x 1 and continue daily maintenance dosing. Will recheck ammonia level. Yesterday it was trending down at 42. He has not had a bowel movement today. CT of his head was earlier negative for stroke. Discussed with his significant other that patient is at a high risk of reintubation given his extreme agitation and potential for injury to self due to uncontrolled agitation. She is agreeable to reintubate if needed. Continue meropenem and IV vancomycin. January 18, 2025 Patient needed to be reintubated yesterday as he was increasingly agitated. Discontinue Lasix as patient clinically appearing to be euvolemic.. Continue presumptive treatment for Wernicke's encephalopathy with IV thiamine. Continue mechanical ventilation, sedated with fentanyl propofol and Versed. Continue IV antibiotics meropenem and vancomycin. All updates discussed with patient's . Life partner Siri Zimmerman. Discussed possible transition to LTAC,, she states she would like to wait until Monday to make a final decision. PDMP PDMP Reviewed: Not Reviewed Attestations 2 Medical Necessity Statement*: Need for continued ventilatory support. Continues to have persisting encephalopathy requiring sedation in the intensive care unit. Coding Level of Care Code Acute Code for Chg Fwd High MDM includes number and complexity of problems actively addressed during encounter, amount and/or complexity of data reviewed/ordered and described risk of complication, morbidity or mortality of management as documented Diagnoses Multifocal pneumonia J18.9 Alcohol abuse F10.10 Alcohol withdrawal seizure F10.939; R56.9 Thrombocytopenia D69.6 Hyponatremia E87.1 BiPAP (biphasic positive airway pressure) dependence Z99.89 ARDS (adult respiratory distress syndrome) J80 Delirium tremens F10.931 AMS (altered mental status) R41.82 Metabolic encephalopathy G93.41 Influenzal pneumonia J11.00
[2025-01-19] VITALS (64 sets, daily range): BP systolic 100–148; BP diastolic 57–84; PULSE 66–112; RESP 14–26; TEMP 36.2–37.7; O2SAT 90–99; BMI 31.0
[2025-01-19] MEDS: chlorhexidine gluconate 4% Btl 118 mL 1 APPLIC TOPICAL
[2025-01-19] MEDS: propofol 1,000 MG/100 ML INJ 44.5 MG IV (01:09)
[2025-01-19] MEDS: meropenem 1,000 mg SDV 1000 MG IVP ×3 (02:36→20:35)
[2025-01-19] MEDS: propofol 1,000 MG/100 ML INJ 41.53 MG IV ×8 (03:38→22:51)
[2025-01-19 04:15] LABS: ABG PCO2 44.3 mmHg (35-45); ABG PH Result 7.45 (7.35-7.45); Arterial Blood Gas Hematocrit 45.9 % (42-52); Base Excess ABG 5.9 mmol/L (-2.0-2.0); Blood Gas Allen Test Pos; Blood Gas Operator Identificat JDB; Blood Gas Sample Site Radial, right; Blood Gas Sample Type Arterial; HCO3 ABG 30.8 mmol/L (22-26); Oxygen Device VENT; PO2 ABG 59.6 mmHg (80.0-100.0); PO2 FiO2 Ratio Arterial Blood 119
[2025-01-19] MEDS: fentaNYL 2,500 MCG/250 ML BAG 15 MCG IV (04:36)
[2025-01-19 04:45] LABS: Basophils % 0.2 %; Eosinophils # 0.1 10^3/uL (0.0-0.8); Eosinophils % 1.8 %; Hematocrit 36.5 % (37-53); Lymphocytes # 0.5 10^3/uL (0.8-4.8); Lymphocytes % 7.7 %; Mean Corpuscular HGB Conc 32.1 g/dL (30-55); Mean Corpuscular Hemoglobin 35.8 pg (27-33); Mean Corpuscular Volume 111.6 fl (82-101); Mean Platelet Volume 10.9 fL (7.4-10.4); Monocytes # 0.2 10^3/uL (0.2-0.9); Monocytes % 3.9 %; Neutrophils # 5.07 10^3/uL (1.8-7.7); Neutrophils % 85.1 %; Nucleated Red Blood Cells % 0 %; Platelet Count 196 10^3/cmm (157-399); Red Blood Count 3.27 10^6/uL (3.85-5.65); Red Cell Distribution Width 14.6 % (12.1-15.1); White Blood Count 5.96 10^3/uL (3.29-11.43)
[2025-01-19 05:17] LABS: Alanine Aminotransferase 73 U/L (0-41); Albumin Level 2.5 g/dL (3.5-5.2); Alkaline Phosphatase 210 U/L (40-130); Blood Urea Nitrogen 21 mg/dL (6-20); Calcium 8.1 mg/dL (8.5-10.5); Carbon Dioxide 27 mmol/L (22-29); Chloride 107 mmol/L (98-107); Creatinine Clr Calc Pharmacy 198.2317; Globulin 3.6 g/dL (1.3-4.6); Glomerular Filtration Rate 171.4 mL/min (90-130); Glucose 98 mg/dL (65-115); Osmolality Calculated 299 mOsm/kg (285-295); Sodium 143 mmol/L (136-145); Total Bilirubin 1.1 mg/dL (0.15-1.2); Total Protein 6.1 g/dL (6.6-8.7)
[2025-01-19 05:30] LABS: Anion Gap 12.6 (5-19); Potassium 3.6 mmol/L (3.5-5.1)
[2025-01-19 05:31] LABS: Aspartate Amino Transferase 58 U/L (0-40)
[2025-01-19] MEDS: midazolam hcl 100 MG/100 ML BAG IV (05:55)
[2025-01-19] MEDS: ipratropium-albuterol 3 mL Neb INHALATION ×4 (07:32→19:36)
[2025-01-19] MEDS: folic acid 1 mg Tablet PO (08:09)
[2025-01-19] MEDS: multivitamin therapeutic Tablet 1 TAB PO (08:09)
[2025-01-19] MEDS: lactulose oral liq 20 gm/30 mL UDC PO (08:09)
[2025-01-19] MEDS: pantoprazole 40 mg SDV IVP (08:10)
[2025-01-19] MEDS: thiamine 500 MG in sodium chloride 0.9% (100 ml) 100 ML 210 MG IV ×3 (08:10→20:42)
[2025-01-19] MEDS: heparin 5,000 unit/mL INJ 1 mL 5000 UNIT SUBCUT ×3 (08:10→22:55)
[2025-01-19 08:47] LABS: Ammonia 32 umol/L (16-60)
[2025-01-19] MEDS: vancomycin 1,250 MG/250 ML PIGGYBACK 166.67 MG IV (09:52)
[2025-01-19] MEDS: propofol 1,000 MG/100 ML INJ 38.56 MG IV (10:53)
[2025-01-19] MEDS: AA-Dex 8%-10% w/ lytes 1,000 ML with multivitamin inj 10 ML 20.7 ML IV (11:33)
[2025-01-19] MEDS: methylPREDNISolone sod succ 40 mg/mL INJ IVP (15:17)
--- NOTE | 2025-01-19 17:36 | P.PN_ITS ---
Subjective 2 Subjective: Patient has developed left metatarsophalangeal joint swelling noticeable this morning. confirms a past history of presumed gout attacks, has never formally had a uric acid level checked. Tmax 99.8. Medications: Reviewed: Yes Vitals/I&O/Wt Last Vital Signs Temp 99.8 F H 01/19/25 12:30 Pulse 99 01/19/25 16:40 Resp 17 01/19/25 17:25 BP 126/64 01/19/25 16:00 Pulse Ox 93 01/19/25 17:25 O2 Del Method Mechanical Ventilation 01/19/25 16:00 O2 Flow Rate 50 01/17/25 16:00 FiO2 50 01/19/25 17:25 01/19/25 01/19/25 01/19/25 06:59 14:59 22:59 Intake Total 673.500 / 2243.716 666.532 / 666.532 199.135 / 865.667 Output Total 700 / 1350 Balance -26.500 / 893.716 666.532 / 666.532 199.135 / 865.667 Weight last 48 hrs Weight 101 kg Weight 102 kg Physical Exam 2 Narrative: General: Intubated, sedated HEENT: PERRLA, pupils bilaterally equal and reactive, pallors not present Chest: Clear to auscultation bilaterally CVS: S1-S2 regular, no murmurs, no tachycardia, no gallops, no rubs Abdomen: Soft, nontender, no organomegaly, bowel sounds present Neuro: Unable to assess Urinary Catheter Management: Sadler: Cath Placed During This Visit: yes Reason for Continuing Indwelling Catheter: Accurate Measurement of Urinary Output in Critically Ill Patients Urinary Catheter Date of Insertion: 01/12/25 Urinary Catheter Time of Insertion: 22:00 Data 01/19/25 04:23 01/19/25 04:23 Micro: Microbiology 01/17/25 16:40 Gram Stain - Final Sputum - Endotracheal Tube Aspirate Sputum Culture - Preliminary A&P Assessment and plan (1) Multifocal pneumonia: (2) Alcohol abuse: (3) Alcohol withdrawal seizure: (4) Thrombocytopenia: (5) Hyponatremia: (6) BiPAP (biphasic positive airway pressure) dependence: (7) ARDS (adult respiratory distress syndrome): (8) Delirium tremens: (9) AMS (altered mental status): (10) Metabolic encephalopathy: (11) Influenzal pneumonia: (12) Acute gout: Plan #Shortness of breath secondary to multifocal pneumonia #Sepsis secondary to multifocal pneumonia?criteria met by elevated lactic acid, tachycardia, acute hypoxia #Alcohol abuse #Alcohol withdrawal #History of alcohol withdrawal seizures #Recent upper respiratory illness #Noncompliance, does not follow with a doctor #Lactic acidosis #Untreated hepatitis C #Hyponatremia #Thrombocytopenia ? Placed on DuoNeb every 6 hours scheduled. Patient given Solu-Medrol 125 IV in the ER once ? Placed on Solu-Medrol 40 IV twice daily ? Check bacterial antigen and strep antigen ? Continue ceftriaxone azithromycin ? Placed on thiamine folic acid, CIWA protocol ? I will give 1 mg Ativan IV right now as patient is very anxious. ? Check CTA chest to rule out PE ? Check hepatitis profile ? Patient will need to be set up with primary care doctor and GI at time of discharge ? Will escalate to BiPAP at this time. Low threshold for intubation. Patient is a full code and agreeable to intubation if required. ? Check procalcitonin ? Elevated liver enzymes most likely secondary to untreated hepatitis. Bilirubin most likely secondary to liver disease as well. ? Check CT abdomen pelvis ? Check GGT ? Sodium 125 most likely secondary to alcohol abuse. Will check urine sodium, serum, urine osmolality ? Placed on normal saline 100 cc/h. Patient appears to be dehydrated. Chloride 83. ? EKG does show sinus tachycardia. Patient denies any chest pain at this time. Troponins negative x 3. ? Check vitamin B12 level. ? Initial lactic acid 4.2, repeat is reflex. ? Check lipid panel, hemoglobin A1c, TSH ? Will admit to ICU at this time. May use Precedex drip if needed Full code DVT prophylaxis: Heparin SQ twice daily 01/13/25: Admitted 01/11 with Hypoxia and alcohol withdrawal. Per life partner at bedside, he drinks a pint of drink every day. Last drink was on morning of admission. Patient is currently on precedex maxed at 1.2 at this time. Additionally has been receviing pushes of phenobarbital and Ativan. he is obtunded at this time. does not wake up to calling name or painful stimulus. On strenal rub, he starts to have significant tremors without any other meaningful response. Overall concern for delirium tremens, likely also with metabolic encephalopathy related to ARDS. Cannot r/o viral encephalitis at this time. Patient is currently in ARDS from multifocal PNA. Pa02 at 60% at 80% fi02 on Bipap. Pa02, fi02 ratio of 75 consistent with severe ARDS. We will proceed with intubation and mechanical ventilation today given poor mentation, inability to protect airway, obtunded on Bipap, severe ARDS and delirium tremens. Will obtain CT head once intubated. His partner is currently at bedside and updated regarding critical events. T max 100.6 He has been on rx with ceftriaxone and azithromyin. Add Vancomycin for additional MRSA coverage. Add Tamiflu 75mg BID Check MRSA nares. Check sputum cx and graim stain. Check Ammonia level . Blood cx negative thus far DVT ppx: heparin to d/c today due to thrombocytopenia, plt at 69 k today, SCDS onlt for now PUD ppx: protonix 40 mg daily January 14, 2025. Patient intubated yesterday by anesthesia. Patient noted to have clear almost bilious appearing contents come out of his ET tube. Suspect that may have aspirated upon initial arrival. Life partner reports that patient drinks at least a pint every day. Chest x- ray taken today showing persistent mixed interstitial and alveolar infiltrates bilaterally with small pleural effusions overall slightly worse compared to the day prior. Discontinue IV fluids as suspect fluid overload also contributing. Lasix 20 mg IV x 1 now. Assess for urine output and kidney function prior to administering further Lasix doses. Discontinue ceftriaxone. Broaden antibiotic coverage to meropenem 1 g IV every 8 hours for broader gram-negative coverage and also for anaerobic coverage with suspected aspiration. Continue vancomycin. Sputum culture currently pending. Continue azithromycin. Patient remains on respiratory support with mechanical ventilation at this point. High FiO2 requirement of 80%, PEEP of 10. ABG with hypoxic hypercapnic respiratory acidosis, not ready for vent weaning yet. Blood culture remains negative to date. Continue Tamiflu 75 mg twice daily. Ammonia level elevated at 83, possibly hepatic encephalopathy contributing to his overall encephalopathic picture. Started lactulose 20 every 6 hours overnight, today he is having diarrhea as a result. Will change lactulose to daily dosing at this point. Ammonia has serially improved over [address] head additionally performed today as he is noted to have some abrasions over his left temporal area and continues to be obtunded. No signs of acute intracranial hemorrhage or edema. There is mild bilateral frontal lobe atrophy likely related to alcohol abuse. Possibility of Warnicke's encephalopathy not excluded. Unable to get MRI while patient is on ventilator. Continue thiamine 100 mg daily. January 15, 2025 Received Lasix 20 mg IV last evening and then again this morning. He is overall net +6700 cc since admission[address] Will place him on 20 mg IV Lasix every 12 hours. Closely monitor for kidney function. Noted to have mild leukopenia today, likely related to acute infection, likely alcoholic hepatitis. Continue to monitor. Platelet counts improved at 100,000. Patient had spontaneous nosebleed yesterday therefore would not resume heparin currently. Attempts to wean down sedation this morning were not well-tolerated. Vent requirements slightly better today with FiO2 down to 60%. Continued attempts at weaning down requirements. Continue meropenem, vancomycin and azithromycin. Sputum culture pending. Tamiflu course to be completed for 5 days. January 16, 2025 Fi02 requirements down at 45% today. Continue meropenem, vancomycin and lasix. D/c azithromycin. Leukopenia, thrombocytopenia improving. D/c versed today, transition to Precedex with intention of vent weaning over the next 2-3 days. Less tachycardic today. Hopefully DTs resolving, however will only be clearly evident once extubated. Likely also has added components of hepatic encephaolpathy, metabolic encephalopathy from acute infection vs Wernicke's not excluded. Called to update life partner- no answer today January 17, 2025 FiO2 requirements and PEEP were improved today. Patient was extubated this morning, he remained calm only for a short while afterwards. Thereafter he has been on maximum dose of Precedex at 1.5, he has received Geodon 10 mg IM, received Haldol 5 mg IM, Ativan 2 mg IV however continues to be agitated. Postextubation he is additionally tachycardic, Tmax 99.8 Fahrenheit. He remains encephalopathic. His last drink was on the day of admission on January 12, 2025. I am uncertain if DTs would explain his persisting encephalopathy. I had plan to obtain an MRI once patient was extubated, however he is currently unable to lay flat to be able to proceed with the MRI imaging to look for Wernicke's encephalopathy. Will presumptively give him thiamine 500 mg IV x 1 and continue daily maintenance dosing. Will recheck ammonia level. Yesterday it was trending down at 42. He has not had a bowel movement today. CT of his head was earlier negative for stroke. Discussed with his significant other that patient is at a high risk of reintubation given his extreme agitation and potential for injury to self due to uncontrolled agitation. She is agreeable to reintubate if needed. Continue meropenem and IV vancomycin. January 18, 2025 Patient needed to be reintubated yesterday as he was increasingly agitated. Discontinue Lasix as patient clinically appearing to be euvolemic.. Continue presumptive treatment for Wernicke's encephalopathy with IV thiamine. Continue mechanical ventilation, sedated with fentanyl propofol and Versed. Continue IV antibiotics meropenem and vancomycin. All updates discussed with patient's . Life partner Siri Zimmerman. Discussed possible transition to LTAC,, she states she would like to wait until Monday to make a final decision. January 19, 2025 Versed was attempted to be weaned down today, however patient started being agitated, He moved all extremities while laying in bed, however did not follow any commands. Became tachycardic, diaphoretc with attempts to wean. Contineu fentanyl, propofol and versed gtt. patient's significant other was upset at attempts to wean down sedation today, however we discussed the importance of sedation vacation in order to assess patient's underlying mental status. Early extubation is always preferable. Discussed complications of prolonged intubation and the need to reassess mental status on a frequent/nearly daily basis. Start TPN for parenteral nutrition. Continue IV antibiotics meropenem and vancomycin. Recheck blood cultures with a.m. labs, low-grade fever 99.8 Fahrenheit today. Patient additionally noted to have new swelling over the left metatarsophalangeal joint, reports a past history of presumed gout with recurrent swelling over small joints of feet. Methylprednisolone 40 mg IV for the same. Add colchicine 0.6 mg daily. Avoiding NSAIDs to minimize risk of bleeding/stress ulcers and SEAN. Low-grade fever may be related to gout flare. Additionally check for DVT given patient needed to be off DVT prophylaxis due to nosebleed. Resume heparin 5000 unit every 8 hours prophylaxis today as no recurrent nose bleeds. Continue presumptive treatment for Wernicke's encephalopathy with iv thiamine 500mg iv TID followed by 250mg iv daily. Will order spot EEG to assess for seizures. All updates discussed with life partner at bedside PDMP PDMP Reviewed: Not Reviewed Attestations 2 Medical Necessity Statement*: continued ventilator support, iv abx, iv steroids, persisting encephalopathy. Critical Care Time: The high probability of a clinically significant, sudden or life threatening deterioration of the patient's [respiratory,neuro,ID,rheum] system(s) required my full and direct attention, intervention and personal management. The critical care time is as shown. This time is in addition to time spent performing any reported procedures but includes the following: [x] Data and vital sign review and interpretation [x] Patient assessment, examination and intervention [x] Documentation [x] Medication orders and management Critical Care Time (min): 60 Coding Level of Care Code Critical Care >/= 30 minutes Diagnoses Multifocal pneumonia J18.9 Alcohol abuse F10.10 Alcohol withdrawal seizure F10.939; R56.9 Thrombocytopenia D69.6 Hyponatremia E87.1 BiPAP (biphasic positive airway pressure) dependence Z99.89 ARDS (adult respiratory distress syndrome) J80 Delirium tremens F10.931 AMS (altered mental status) R41.82 Metabolic encephalopathy G93.41 Influenzal pneumonia J11.00 Acute gout M10.9
[2025-01-19] MEDS: fentaNYL 2,500 MCG/250 ML BAG 17.5 MCG IV (17:46)
[2025-01-19] MEDS: colchicine 0.6 mg Tablet NG-TUBE (17:59)
[2025-01-19 19:47] LABS: Vancomycin Trough 10.2 ug/mL (10-15)
[2025-01-19] MEDS: vancomycin 1,750 MG/350 ML PIGGYBACK 175 MG IV (21:48)
[2025-01-20] VITALS (53 sets, daily range): BP systolic 103–151; BP diastolic 61–87; PULSE 63–115; RESP 14–25; TEMP 36.5–39.2; O2SAT 89–97; BMI 30.4
[2025-01-20] MEDS: propofol 1,000 MG/100 ML INJ 41.53 MG IV ×10 (01:25→23:51)
[2025-01-20] MEDS: meropenem 1,000 mg SDV 1000 MG IVP ×3 (02:39→20:55)
--- NOTE | 2025-01-20 04:00 | XR_ITS ---
WS: [id number] PORTABLE CHEST HISTORY: f/up pneumonia COMPARISON: 01/18/2025 Endotracheal tube and nasogastric tubes are in good position. Bilateral pulmonary interstitial opacifications with a slightly more dense consolidation at the LEFT lung base. Small LEFT pleural effusion. Elevated RIGHT hemidiaphragm. There is air on both sides of the diaphragm which is new since the prior study. This may be air contained within the GI tract but needs to be further evaluated. Cardiac size: Mildly enlarged cardiac silhouette. Mediastinum/Aorta: Normal mediastinum. AC joint arthritis. XR/XR chest 1V portable [id number] IMPRESSION: 1. Nasogastric and endotracheal tubes in good position. 2. Mild improved aeration as compared to 01/18/2025 in the mid and lower lung f ields. There is continued reticular interstitial opacification which is probabl y pneumonia and/or edema. 3. New lucency in the RIGHT upper quadrant below the diaphragm. This may poten tially be free air. This could be air within the GI tract. Suggest follow-up no ncontrast CT abdomen and pelvis to exclude free air. 4. Nasogastric and endotracheal tubes remain in good position.
[2025-01-20 04:27] LABS: Basophils % 0.2 %; Eosinophils # 0.1 10^3/uL (0.0-0.8); Eosinophils % 1.5 %; Hematocrit 34.1 % (37-53); Lymphocytes # 0.6 10^3/uL (0.8-4.8); Lymphocytes % 9.7 %; Mean Corpuscular HGB Conc 31.7 g/dL (30-55); Mean Corpuscular Hemoglobin 35.6 pg (27-33); Mean Corpuscular Volume 112.5 fl (82-101); Mean Platelet Volume 11.3 fL (7.4-10.4); Monocytes # 0.3 10^3/uL (0.2-0.9); Monocytes % 4.3 %; Neutrophils # 4.88 10^3/uL (1.8-7.7); Neutrophils % 83.1 %; Nucleated Red Blood Cells % 0 %; Platelet Count 188 10^3/cmm (157-399); Red Blood Count 3.03 10^6/uL (3.85-5.65); Red Cell Distribution Width 14.7 % (12.1-15.1); White Blood Count 5.87 10^3/uL (3.29-11.43)
[2025-01-20 04:40] LABS: ABG PCO2 46.8 mmHg (35-45); ABG PH Result 7.42 (7.35-7.45); Base Excess ABG 5.3 mmol/L (-2.0-2.0); Blood Gas Allen Test Pos; Blood Gas Operator Identificat ED; Blood Gas Sample Site Radial, right; Blood Gas Sample Type Arterial; HCO3 ABG 30.6 mmol/L (22-26); Oxygen Device VENT; PO2 ABG 67.1 mmHg (80.0-100.0); PO2 FiO2 Ratio Arterial Blood 134
[2025-01-20 04:46] LABS: Alanine Aminotransferase 57 U/L (0-41); Albumin Level 2.4 g/dL (3.5-5.2); Alkaline Phosphatase 231 U/L (40-130); Aspartate Amino Transferase 50 U/L (0-40); Blood Urea Nitrogen 24 mg/dL (6-20); Calcium 8.2 mg/dL (8.5-10.5); Carbon Dioxide 28 mmol/L (22-29); Chloride 110 mmol/L (98-107); Creatinine Clr Calc Pharmacy 197.3094; Globulin 3.6 g/dL (1.3-4.6); Glomerular Filtration Rate 171.4 mL/min (90-130); Glucose 116 mg/dL (65-115); Osmolality Calculated 303 mOsm/kg (285-295); Sodium 144 mmol/L (136-145)
[2025-01-20 05:20] LABS: Uric Acid 1.2 mg/dL (3.4-7.0)
[2025-01-20] MEDS: midazolam hcl 100 MG/100 ML BAG IV (05:41)
[2025-01-20] MEDS: ipratropium-albuterol 3 mL Neb INHALATION ×4 (07:18→19:19)
[2025-01-20] MEDS: fentaNYL 2,500 MCG/250 ML BAG 17.5 MCG IV ×2 (07:32→21:15)
--- NOTE | 2025-01-20 08:41 | CT_ITS ---
WS: [id number] CT CHEST, ABDOMEN, AND PELVIS TECHNIQUE: Noncontrast CT of the chest, abdomen, and pelvis with coronal and sagittal reformatted images. CLINICAL INFORMATION: free air under diaphragm COMPARISON: None. DLP: 1412.[address] scans at [facility] use at least one of these dose optimization techniques: automated exposure control; mA and/or kV adjustment per patient size (includes targeted exams where dose is matched to clinical indication); or iterative reconstruction. CT CHEST: Small bilateral pleural effusions with compressive atelectasis and consolidation in the lung bases. Scattered patchy opacities in RIGHT greater than LEFT upper lobes. Endotracheal tube. Enteric tube. Chronic emphysematous changes. Shallow inspiration. CT ABDOMEN AND PELVIS: No free air. Hepatomegaly. Sludge or tiny calculi in the gallbladder. Splenomegaly. Fatty atrophy of the pancreas. Enteric tube in the stomach. Adrenal glands are normal. No hydronephrosis. Normal caliber abdominal aorta. Sadler catheter. Few sigmoid diverticuli. Small fat-containing inguinal hernias LEFT greater than RIGHT. Moderate spondylitic changes lumbar spine. No other acute findings. CT/[place] [id number] IMPRESSION: 1. No free air. 2. Small bilateral pleural effusions with consolidation in the lung bases. Pat maged opacities in the upper lobes bilaterally. 3. Sludge or tiny calculi in the gallbladder. 4. Splenomegaly. 5. No other acute findings.
[2025-01-20] MEDS: thiamine 500 MG in sodium chloride 0.9% (100 ml) 100 ML 210 MG IV ×3 (08:56→20:54)
[2025-01-20] MEDS: pantoprazole 40 mg SDV IVP (08:58)
[2025-01-20] MEDS: heparin 5,000 unit/mL INJ 1 mL 5000 UNIT SUBCUT ×2 (08:59→15:57)
[2025-01-20] MEDS: lactulose oral liq 20 gm/30 mL UDC PO (09:00)
[2025-01-20] MEDS: colchicine 0.6 mg Tablet NG-TUBE (09:00)
[2025-01-20] MEDS: multivitamin therapeutic Tablet 1 TAB PO (09:00)
[2025-01-20] MEDS: folic acid 1 mg Tablet PO (09:00)
--- NOTE | 2025-01-20 09:20 | PC.NURSE ---
Dr Lott rounding bedside, discussing patients POC. Patients temp is 102.6. Received verbal orders from Dr. Lott of 650mg Tylenol OG one time. Order placed.
--- NOTE | 2025-01-20 09:25 | PC.NUTR ---
TPN currently running @ 62.5ml/hr. Recommend goal rate of 83mls/hr w/MV@10mls/day and standard electrolytes. Propofol 41.43mls/hr providing additional 1093kcals. This will provide 1320kcals+1093kcals or >100% Pt's estimated kcal needs and 160grams protein of >100% Pt's estimated protein needs.
[2025-01-20] MEDS: acetaminophen 325 mg Tablet 650 MG OG-TUBE (09:39)
[2025-01-20] MEDS: vancomycin 1,750 MG/350 ML PIGGYBACK 175 MG IV (11:14)
--- NOTE | 2025-01-20 11:35 | PC.NURSE ---
RT changed patients on tube tamer and reported that there were no abnormal findings on patients skin
[2025-01-20] MEDS: AA-Dex 8%-10% w/ lytes 1,000 ML with multivitamin inj 10 ML 62.25 ML IV (12:14)
--- NOTE | 2025-01-20 14:39 | P.PN_ITS ---
Subjective 2 Subjective: Seen this morning. Patient spiking a fever up to 102 this morning. Having thick secretions in ET tube. Discussed with family over the phone and they are requesting transfer to [place] Vitals/I&O/Wt Last Vital Signs Temp 100.3 F H 01/21/25 09:00 Pulse 115 H 01/21/25 14:00 Resp 17 01/21/25 12:36 BP 128/82 01/21/25 14:00 Pulse Ox 92 01/21/25 14:00 O2 Del Method Mechanical Ventilation 01/21/25 12:25 O2 Flow Rate 50 01/17/25 16:00 FiO2 40 01/21/25 12:36 01/20/25 01/21/25 01/21/25 22:59 06:59 14:59 Intake Total 1125 / 2080.858 1750.875 / 3831.733 Output Total 1200 / 1550 1100 / 2650 Balance -75 / 530.858 650.875 / 3389.245 4308 Weight last 48 hrs Weight 102 kg Weight 99 kg Physical Exam 2 Narrative: General: Intubated, sedated HEENT: PERRLA, pupils bilaterally equal and reactive, pallors not present Chest: Clear to auscultation bilaterally CVS: S1-S2 regular, no murmurs, no tachycardia, no gallops, no rubs Abdomen: Soft, nontender, no organomegaly, bowel sounds present Neuro: Unable to assess Femoral line on the right side in place with no erythema or swelling around insertion site. No swelling noted at toes bilaterally. On 50% FiO2 on vent. Tidal volume 600. Urinary Catheter Management: Sadler: Cath Placed During This Visit: yes Reason for Continuing Indwelling Catheter: Accurate Measurement of Urinary Output in Critically Ill Patients Urinary Catheter Date of Insertion: 01/12/25 Urinary Catheter Time of Insertion: 22:00 Data 01/21/25 04:38 01/21/25 04:38 Micro: Microbiology 01/20/25 03:45 Blood Culture - Preliminary Blood NEGATIVE TO DATE 01/20/25 03:45 Blood Culture - Preliminary Blood NEGATIVE TO DATE 01/20/25 15:50 Blood Culture - Preliminary Blood SPECIMEN COLLECTED 01/20/25 15:39 Blood Culture - Preliminary Blood SPECIMEN COLLECTED 01/17/25 16:40 Gram Stain - Final Sputum - Endotracheal Tube Aspirate Sputum Culture - Final A&P Assessment and plan (1) Multifocal pneumonia: (2) Alcohol abuse: (3) Alcohol withdrawal seizure: (4) Thrombocytopenia: (5) Hyponatremia: (6) BiPAP (biphasic positive airway pressure) dependence: (7) ARDS (adult respiratory distress syndrome): (8) Delirium tremens: (9) AMS (altered mental status): (10) Metabolic encephalopathy: (11) Influenzal pneumonia: (12) Acute gout: Plan #Shortness of breath secondary to multifocal pneumonia #Sepsis secondary to multifocal pneumonia?criteria met by elevated lactic acid, tachycardia, acute hypoxia #Alcohol abuse #Alcohol withdrawal #History of alcohol withdrawal seizures #Recent upper respiratory illness #Noncompliance, does not follow with a doctor #Lactic acidosis #Untreated hepatitis C #Hyponatremia #Thrombocytopenia ? Placed on DuoNeb every 6 hours scheduled. Patient given Solu-Medrol 125 IV in the ER once ? Placed on Solu-Medrol 40 IV twice daily ? Check bacterial antigen and strep antigen ? Continue ceftriaxone azithromycin ? Placed on thiamine folic acid, CIWA protocol ? I will give 1 mg Ativan IV right now as patient is very anxious. ? Check CTA chest to rule out PE ? Check hepatitis profile ? Patient will need to be set up with primary care doctor and GI at time of discharge ? Will escalate to BiPAP at this time. Low threshold for intubation. Patient is a full code and agreeable to intubation if required. ? Check procalcitonin ? Elevated liver enzymes most likely secondary to untreated hepatitis. Bilirubin most likely secondary to liver disease as well. ? Check CT abdomen pelvis ? Check GGT ? Sodium 125 most likely secondary to alcohol abuse. Will check urine sodium, serum, urine osmolality ? Placed on normal saline 100 cc/h. Patient appears to be dehydrated. Chloride 83. ? EKG does show sinus tachycardia. Patient denies any chest pain at this time. Troponins negative x 3. ? Check vitamin B12 level. ? Initial lactic acid 4.2, repeat is reflex. ? Check lipid panel, hemoglobin A1c, TSH ? Will admit to ICU at this time. May use Precedex drip if needed Full code DVT prophylaxis: Heparin SQ twice daily 01/13/25: Admitted 01/11 with Hypoxia and alcohol withdrawal. Per life partner at bedside, he drinks a pint of drink every day. Last drink was on morning of admission. Patient is currently on precedex maxed at 1.2 at this time. Additionally has been receviing pushes of phenobarbital and Ativan. he is obtunded at this time. does not wake up to calling name or painful stimulus. On strenal rub, he starts to have significant tremors without any other meaningful response. Overall concern for delirium tremens, likely also with metabolic encephalopathy related to ARDS. Cannot r/o viral encephalitis at this time. Patient is currently in ARDS from multifocal PNA. Pa02 at 60% at 80% fi02 on Bipap. Pa02, fi02 ratio of 75 consistent with severe ARDS. We will proceed with intubation and mechanical ventilation today given poor mentation, inability to protect airway, obtunded on Bipap, severe ARDS and delirium tremens. Will obtain CT head once intubated. His partner is currently at bedside and updated regarding critical events. T max 100.6 He has been on rx with ceftriaxone and azithromyin. Add Vancomycin for additional MRSA coverage. Add Tamiflu 75mg BID Check MRSA nares. Check sputum cx and graim stain. Check Ammonia level . Blood cx negative thus far DVT ppx: heparin to d/c today due to thrombocytopenia, plt at 69 k today, SCDS onlt for now PUD ppx: protonix 40 mg daily January 14, 2025. Patient intubated yesterday by anesthesia. Patient noted to have clear almost bilious appearing contents come out of his ET tube. Suspect that may have aspirated upon initial arrival. Life partner reports that patient drinks at least a pint every day. Chest x- ray taken today showing persistent mixed interstitial and alveolar infiltrates bilaterally with small pleural effusions overall slightly worse compared to the day prior. Discontinue IV fluids as suspect fluid overload also contributing. Lasix 20 mg IV x 1 now. Assess for urine output and kidney function prior to administering further Lasix doses. Discontinue ceftriaxone. Broaden antibiotic coverage to meropenem 1 g IV every 8 hours for broader gram-negative coverage and also for anaerobic coverage with suspected aspiration. Continue vancomycin. Sputum culture currently pending. Continue azithromycin. Patient remains on respiratory support with mechanical ventilation at this point. High FiO2 requirement of 80%, PEEP of 10. ABG with hypoxic hypercapnic respiratory acidosis, not ready for vent weaning yet. Blood culture remains negative to date. Continue Tamiflu 75 mg twice daily. Ammonia level elevated at 83, possibly hepatic encephalopathy contributing to his overall encephalopathic picture. Started lactulose 20 every 6 hours overnight, today he is having diarrhea as a result. Will change lactulose to daily dosing at this point. Ammonia has serially improved over [address] head additionally performed today as he is noted to have some abrasions over his left temporal area and continues to be obtunded. No signs of acute intracranial hemorrhage or edema. There is mild bilateral frontal lobe atrophy likely related to alcohol abuse. Possibility of Warnicke's encephalopathy not excluded. Unable to get MRI while patient is on ventilator. Continue thiamine 100 mg daily. January 15, 2025 Received Lasix 20 mg IV last evening and then again this morning. He is overall net +6700 cc since admission[address] Will place him on 20 mg IV Lasix every 12 hours. Closely monitor for kidney function. Noted to have mild leukopenia today, likely related to acute infection, likely alcoholic hepatitis. Continue to monitor. Platelet counts improved at 100,000. Patient had spontaneous nosebleed yesterday therefore would not resume heparin currently. Attempts to wean down sedation this morning were not well-tolerated. Vent requirements slightly better today with FiO2 down to 60%. Continued attempts at weaning down requirements. Continue meropenem, vancomycin and azithromycin. Sputum culture pending. Tamiflu course to be completed for 5 days. January 16, 2025 Fi02 requirements down at 45% today. Continue meropenem, vancomycin and lasix. D/c azithromycin. Leukopenia, thrombocytopenia improving. D/c versed today, transition to Precedex with intention of vent weaning over the next 2-3 days. Less tachycardic today. Hopefully DTs resolving, however will only be clearly evident once extubated. Likely also has added components of hepatic encephaolpathy, metabolic encephalopathy from acute infection vs Wernicke's not excluded. Called to update life partner- no answer today January 17, 2025 FiO2 requirements and PEEP were improved today. Patient was extubated this morning, he remained calm only for a short while afterwards. Thereafter he has been on maximum dose of Precedex at 1.5, he has received Geodon 10 mg IM, received Haldol 5 mg IM, Ativan 2 mg IV however continues to be agitated. Postextubation he is additionally tachycardic, Tmax 99.8 Fahrenheit. He remains encephalopathic. His last drink was on the day of admission on January 12, 2025. I am uncertain if DTs would explain his persisting encephalopathy. I had plan to obtain an MRI once patient was extubated, however he is currently unable to lay flat to be able to proceed with the MRI imaging to look for Wernicke's encephalopathy. Will presumptively give him thiamine 500 mg IV x 1 and continue daily maintenance dosing. Will recheck ammonia level. Yesterday it was trending down at 42. He has not had a bowel movement today. CT of his head was earlier negative for stroke. Discussed with his significant other that patient is at a high risk of reintubation given his extreme agitation and potential for injury to self due to uncontrolled agitation. She is agreeable to reintubate if needed. Continue meropenem and IV vancomycin. January 18, 2025 Patient needed to be reintubated yesterday as he was increasingly agitated. Discontinue Lasix as patient clinically appearing to be euvolemic.. Continue presumptive treatment for Wernicke's encephalopathy with IV thiamine. Continue mechanical ventilation, sedated with fentanyl propofol and Versed. Continue IV antibiotics meropenem and vancomycin. All updates discussed with patient's . Life partner Siri Zimmerman. Discussed possible transition to LTAC,, she states she would like to wait until Monday to make a final decision. January 19, 2025 Versed was attempted to be weaned down today, however patient started being agitated, He moved all extremities while laying in bed, however did not follow any commands. Became tachycardic, diaphoretc with attempts to wean. Contineu fentanyl, propofol and versed gtt. patient's significant other was upset at attempts to wean down sedation today, however we discussed the importance of sedation vacation in order to assess patient's underlying mental status. Early extubation is always preferable. Discussed complications of prolonged intubation and the need to reassess mental status on a frequent/nearly daily basis. Start TPN for parenteral nutrition. Continue IV antibiotics meropenem and vancomycin. Recheck blood cultures with a.m. labs, low-grade fever 99.8 Fahrenheit today. Patient additionally noted to have new swelling over the left metatarsophalangeal joint, reports a past history of presumed gout with recurrent swelling over small joints of feet. Methylprednisolone 40 mg IV for the same. Add colchicine 0.6 mg daily. Avoiding NSAIDs to minimize risk of bleeding/stress ulcers and SEAN. Low-grade fever may be related to gout flare. Additionally check for DVT given patient needed to be off DVT prophylaxis due to nosebleed. Resume heparin 5000 unit every 8 hours prophylaxis today as no recurrent nose bleeds. Continue presumptive treatment for Wernicke's encephalopathy with iv thiamine 500mg iv TID followed by 250mg iv daily. Will order spot EEG to assess for seizures. All updates discussed with life partner at bedside 01/20/2025 Overnight patient developed fever 102.4 and is currently having fever 101.4. He was given Tylenol earlier. Blood cultures, urine culture, sputum culture Gram stain from ET tube, beta D glucan have been ordered. He is having thick secretions from ET tube. We will continue vancomycin and meropenem at this time. Called patient's daughter over the phone however was unable to get a hold of her. No option to leave a voicemail. Discussed with patient's significant other Siri Zimmerman over the phone who has requested patient to be transferred to [facility] in [place]. She states patient's family is in [place] and he had moved to [place] recently to be with Ms. Zimmerman however since his extended family is in [place] she would like for him to be transferred up there. She also stated that they are not interested in LTAC at this time and she would like for him to go to another hospital for further care. She states that she is in touch with patient's daughter and she will let her know regarding the above decision. She states patient's daughter and Ms. Zimmerman have been in agreement regarding transfer. Discussed case with [facility] in [place] or currently on ICU divert. However they have taken down information for the patient and state that she had a bed become available going forward during the day they will call back and speak to the doctor on-call available at that time. I will get a disc ready with patient's imaging studies. I will broaden patient's antibiotic coverage and add vancomycin. Will add micafungin as well. Will place on Tylenol every 6 hours as needed for fever. Will check blood cultures, sputum culture Gram stain, urine culture. Femoral line does not appear to be infected however if patient continues to have a fever may consider removal and placement of another IV. Will continue to check electrolytes daily. PDMP PDMP Reviewed: Not Reviewed Attestations 2 Medical Necessity Statement*: Critically ill in ICU. Critical Care Time: The high probability of a clinically significant, sudden or life threatening deterioration of the patient's [respiratory, cardiovascular, renal] system(s) required my full and direct attention, intervention and personal management. The critical care time is as shown. This time is in addition to time spent performing any reported procedures but includes the following: [x] Data and vital sign review and interpretation [x] Patient assessment, examination and intervention [x] Documentation [x] Medication orders and management Critical Care Time (min): 65 Coding Level of Care Code Acute Code for Chg Fwd Diagnoses Multifocal pneumonia J18.9 Alcohol abuse F10.10 Alcohol withdrawal seizure F10.939; R56.9 Thrombocytopenia D69.6 Hyponatremia E87.1 BiPAP (biphasic positive airway pressure) dependence Z99.89 ARDS (adult respiratory distress syndrome) J80 Delirium tremens F10.931 AMS (altered mental status) R41.82 Metabolic encephalopathy G93.41 Influenzal pneumonia J11.00 Acute gout M10.9
--- NOTE | 2025-01-20 15:38 | P.TS_ITS ---
Transfer Summary Providers Date of Admission: 01/12/25 13:07 Date of Discharge/Transfer: 01/20/25 Attending Provider at Admission: Lori Lott MD Attending Provider at Transfer: Lori Lott MD Transfer Plans: Anticipated date of transfer: 01/20/25 . Diagnoses at Discharge Discharge Diagnosis (1) Multifocal pneumonia: Status: Acute (2) Alcohol abuse: Status: Acute (3) Alcohol withdrawal seizure: Status: Acute (4) Thrombocytopenia: Status: Acute (5) Hyponatremia: Status: Acute (6) BiPAP (biphasic positive airway pressure) dependence: Status: Acute (7) ARDS (adult respiratory distress syndrome): Status: Acute (8) Delirium tremens: Status: Acute (9) AMS (altered mental status): Status: Acute (10) Metabolic encephalopathy: Status: Acute (11) Influenzal pneumonia: Status: Acute (12) Acute gout: Status: Acute Reason for Visit Reason for Visit chest pain, sob Brief History: Mario Kruger is a 59 year old male with past medical history of alcohol abuse, COPD, active smoking, untreated hepatitis C, daily alcohol drinker about a pint a day of whiskey every night, alcohol withdrawal seizure in the past when he was in his 20s, tremors and shaking from alcohol withdrawal presented to the hospital today after being convinced by his partner to seek medical help. He has been sick for the last few weeks and having fevers and chills vomiting diarrhea and difficulty breathing. The vomiting and diarrhea have improved however continues to have chills. States his breathing has been getting worse and worse. Even today he was not going to come to the hospital however his partner convinced him to do so. He drinks daily. His last drink was last night. He drinks about a pint of whiskey every day. He does state he was diagnosed with hep C a long time ago however has not been treated for it. Does not follow with a doctor at all. He states he is bringing up dark brown sputum. In the ER his required nonrebreather and is on 15 L, tachycardic and having some tremors. Appears very anxious at this time. Chest x-ray did show multifocal pneumonia. Hospital Course Hospital Course Patient was admitted for multifocal pneumonia hypoxia and alcohol withdrawal. He drinks a pint of alcohol every day. He was on Precedex drip maxed out during the first night and received pushes of phenobarbital and Ativan. There was concern for delirium tremens and metabolic encephalopathy secondary to ARDS. Viral encephalitis cannot be ruled out at this time. He was requiring 80% FiO2 on BiPAP. PA FiO2 ratio 75 consistent with severe ARDS. Patient was intubated secondary to poor mentation and inability protect airway and obtunded on BiPAP and concern for ARDS and delirium tremens. CT head obtained did not show any acute stroke. Tmax 100.6 and he was placed on ceftriaxone azithromycin. Vancomycin was added for additional MRSA coverage. Tamiflu was added. Subsequently antibiotic coverage was broadened to meropenem 1 g every 8 hours and azithromycin was continued. Warnicke's encephalopathy not excluded. Unable to obtain MRI while patient on ventilator. Thiamine 100 daily was continued at this point. Patient did have mild leukopenia possibly related to acute infection likely alcoholic hepatitis. Platelet counts were low but improved to 100,000. He also had a spontaneous nosebleed therefore heparin was not resumed from admission. Continued attempts at weaning down on the ventilator were unsuccessful. Finally his FiO2 requirements came down to 45%. Versed was discontinued and he was transition to Precedex with intent to vent weaning over next 2 to 3 days. Patient was extubated on January 17 secondary to FiO2 and PEEP requirements improving. However after extubation he was calm only for short while. He required maximum dose of Precedex Geodon 10 mg IM, Haldol 5 mg IM, Ativan 2 mg IV however continued to be agitated. He was also tachycardic postextubation and remained encephalopathic. Initial plan was to obtain an MRI after he was extubated however they were unable to proceed with that to look for Wernicke's encephalopathy. Presumptively he was started on IV thiamine 500 3 times daily and continue daily maintenance dosing. Due to significant risk of harm and extreme agitation and potential for injury to self due to uncontrolled agitation decision was made to reintubate patient. Patient was reintubated the same day after extubation and was now sedated with fentanyl propofol and Versed. Meropenem and vancomycin were continued. Discussion done with significant other life partner Siri Zimmerman regarding possible transition to LTAC however she wanted to wait till Monday to make a final decision. Versed was attempted to be weaned down however patient starts becoming agitated. He does not follow commands. Patient becomes tachycardic diaphoretic with attempts to wean. At this time he is being continued on fentanyl propofol and Versed drip. TPN was started for parenteral nutrition. Meropenem and va ncomycin continued. Patient did have new swelling over left metatarsal joint and has been placed on Solu-Medrol 40 IV for the same. Colchicine was also added. This is possibly for gout flare. Heparin 5000 twice daily was added for DVT prophylaxis. Spot EEG was ordered which is possibly planned to be completed today. Will discuss with nursing staff to check on status of that at this time. Overnight patient developed fever 102.4 and is currently having fever 101.4. He was given Tylenol earlier. Blood cultures, urine culture, sputum culture Gram stain from ET tube, beta D glucan have been ordered. He is having thick secretions from ET tube. We will continue vancomycin and meropenem at this time. Called patient's daughter over the phone however was unable to get a hold of her. No option to leave a voicemail. Discussed with patient's significant other Siri Zimmerman over the phone who has requested patient to be transferred to [facility] in [place]. She states patient's family is in [place] and he had moved to [place] recently to be with Ms. Zimmerman however since his extended family is in [place] she would like for him to be transferred up there. She also stated that they are not interested in LTAC at this time and she would like for him to go to another hospital for further care. She states that she is in touch with patient's daughter and she will let her know regarding the above decision. She states patient's daughter and Ms. Zimmerman have been in agreement regarding transfer. Discussed case with [facility] in [place] or currently on ICU divert. However they have taken down information for the patient and state that she had a bed become available going forward during the day they will call back and speak to the doctor on-call available at that time. I will get a disc ready with patient's imaging studies. Physical Exam Narrative: General: Intubated, sedated HEENT: PERRLA, pupils bilaterally equal and reactive, pallors not present Chest: Clear to auscultation bilaterally CVS: S1-S2 regular, no murmurs, no tachycardia, no gallops, no rubs Abdomen: Soft, nontender, no organomegaly, bowel sounds present Neuro: Unable to assess Urinary Catheter Management: Sadler: Cath Placed During This Visit: yes Reason for Continuing Indwelling Catheter: Accurate Measurement of Urinary Output in Critically Ill Patients Urinary Catheter Date of Insertion: 01/12/25 Urinary Catheter Time of Insertion: 22:00 TS Data Studies Completed and Pending Pending at discharge Category Date Time Status EEG electroencephalogram Routine Exams 01/19/25 17:44 Ordered 1-3 Beta D Glucan [Fungitell Glucan Assay (Blood)] Lab 01/20/25 15:07 Ordered Routine Blood Culture AM LABS Lab 01/20/25 03:45 Results Blood Culture Stat Lab 01/20/25 15:07 Ordered Complete Blood Count w/Auto AM LABS Lab 01/21/25 04:00 Ordered Comprehensive Metabolic Panel AM LABS Lab 01/21/25 04:00 Ordered Magnesium AM LABS Lab 01/21/25 04:00 Ordered Urine Culture Stat Lab 01/20/25 15:07 [place] [id number] Routine Ultrasound 01/20/25 18:19 Taken Completed Studies During Hospitalization Category Date Time Status CT abdomen pelvis wo con [id number] Routine Cat Scan 01/12/25 15:[address] chest abdomen [place] [id number] Cat Scan 01/20/25 08:41 Completed ] Stat CT head wo con* [id number] Routine Cat Scan 01/14/25 11:05 Completed CTA chest [CT angio chest PE protcl [id number]] Stat Cat Scan 01/12/25 14:04 Completed CXRP [XR chest 1V portable [id number]] AM LABS Exams 01/16/25 04:00 Completed CXRP [XR chest 1V portable [id number]] Stat Exams 01/13/25 11:41 Completed CXRP [XR chest 1V portable [id number]] Stat Exams 01/17/25 16:12 Completed XR chest 1V portable [id number] AM LABS Exams 01/20/25 04:00 Completed XR chest 1V portable [id number] Routine Exams 01/14/25 12:03 Completed XR chest 1V portable [id number] Routine Exams 01/18/25 10:24 Completed XR chest 1V portable [id number] Stat Exams 01/12/25 11:56 Completed CV. echo limited [id number] Routine Ultrasound 01/15/25 11:23 Completed Laboratory Last Values WBC 5.87 10^3/uL (3.29-11.43) 01/20/25 03:45 RBC 3.03 10^6/uL (3.85-5.65) L 01/20/25 03:45 Hgb 10.80 g/dL (11.27-16.99) L 01/20/25 03:45 Hct 34.1 % (37-53) L 01/20/25 03:45 MCV 112.5 fl (82-101) H 01/20/25 03:45 MCH 35.6 pg (27-33) H 01/20/25 03:45 MCHC 31.7 g/dL (30-55) 01/20/25 03:45 RDW 14.7 % (12.1-15.1) 01/20/25 03:45 Plt Count 188 10^3/cmm (157-399) 01/20/25 03:45 MPV 11.3 fL (7.4-10.4) H 01/20/25 03:45 Neut % (Auto) 83.1 % 01/20/25 03:45 Lymph % (Auto) 9.7 % 01/20/25 03:45 [place] % (Auto) 4.3 % 01/20/25 03:45 Eos % (Auto) 1.5 % 01/20/25 03:45 Baso % (Auto) 0.2 % 01/20/25 03:45 Neut # (Auto) 4.88 10^3/uL (1.8-7.7) 01/20/25 03:45 Lymph # (Auto) 0.6 10^3/uL (0.8-4.8) L 01/20/25 03:45 [place] # (Auto) 0.3 10^3/uL (0.2-0.9) 01/20/25 03:45 Eos # (Auto) 0.1 10^3/uL (0.0-0.8) 01/20/25 03:45 Baso # (Auto) 0.0 10^3/uL (0.0-0.1) 01/20/25 03:45 Nucleated RBC % (auto) 0 % 01/20/25 03:45 Nucleated RBCs # 0.0 /100WBC 01/20/25 03:45 Specimen Type Arterial 01/20/25 04:30 Sample Site Radial, right 01/20/25 04:30 ABG pH 7.42 (7.35-7.45) 01/20/25 04:30 ABG pCO2 46.8 mmHg (35-45) H 01/20/25 04:30 ABG pO2 67.1 mmHg (80.0-100.0) L 01/20/25 04:30 ABG PO2/FiO2 Ratio 134 01/20/25 04:30 ABG HCO3 30.6 mmol/L (22-26) H 01/20/25 04:30 ABG O2 Saturation 99.0 01/17/25 17:02 ABG Base Excess 5.3 mmol/L (-2.0-2.0) H 01/20/25 04:30 Fabian Test Pos 01/20/25 04:30 A-a O2 Gradient 42.6 mmHg (5-10) H 01/17/25 17:02 Hematocrit 38.0 % (42-52) L 01/20/25 04:30 Hgb O2 Saturation 96.9 % (95-100) 01/17/25 17:02 Carboxyhemoglobin 0.9 %THgb (0.4-20.1) 01/17/25 17:02 Methemoglobin 1.2 % (0.4-1.5) 01/17/25 17:02 Total Hemoglobin 13.2 g/dL (14-18) L 01/17/25 17:02 Sodium 145.0 mmol/L (131-143) H 01/17/25 17:02 Potassium 2.9 mmol/L (3.5-5.0) L 01/17/25 17:02 Glucose 147.0 mg/dL (70-115) H 01/17/25 17:02 Ionized Calcium 1.1 mmol/L (1.1-1.4) 01/17/25 17:02 O2 Delivery Device Vent 01/20/25 04:30 O2 Liters/Min 15.0 % 01/12/25 12:00 FiO2 50.0 % 01/20/25 04:30 Tidal Volume 0.50 01/20/25 04:30 PEEP 10.0 cmH20 01/20/25 04:30 Inventory Control Supervisor ID Ed 01/20/25 04:30 Sodium 144 mmol/L (136-145) 01/20/25 03:45 Potassium 4.0 mmol/L (3.5-5.1) 01/20/25 03:45 Chloride 110 mmol/L (98-107) H 01/20/25 03:45 Carbon Dioxide 28 mmol/L (22-29) 01/20/25 03:45 Anion Gap 10.0 (5-19) 01/20/25 03:45 BUN 24 mg/dL (6-20) H 01/20/25 03:45 Creatinine 0.5 mg/dL (0.7-1.2) L 01/20/25 03:45 GFR Calculation 171.4 mL/min (90-130) H 01/20/25 03:45 Glucose 116 mg/dL (65-115) H 01/20/25 03:45 Calculated Osmolality 303 mOsm/kg (285-295) H 01/20/25 03:45 Lactic Acid 4.2 mmol/L (0.5-2.2) H* 01/12/25 11:55 Lactic Acid (Sepsis) 3.6 mmol/L (0.5-2.2) H 01/12/25 15:06 Uric Acid 1.2 mg/dL (3.4-7.0) L 01/20/25 03:45 Calcium 8.2 mg/dL (8.5-10.5) L 01/20/25 03:45 Magnesium 1.8 mg/dL (1.7-2.3) 01/13/25 05:20 Total Bilirubin 1.0 mg/dL (0.15-1.2) 01/20/25 03:45 AST 50 U/L (0-40) H 01/20/25 03:45 ALT 57 U/L (0-41) H 01/20/25 03:45 Alkaline Phosphatase 231 U/L (40-130) H 01/20/25 03:45 Ammonia 32 umol/L (16-60) 01/19/25 08:16 Troponin T Baseline 15 ng/L (0-15) 01/12/25 11:55 Troponin T 120 Minute 12.04 ng/L (0-15) 01/12/25 13:47 Delta Troponin T -2.96 ABS# (0-10) L 01/12/25 13:47 Troponin T Hi Sens 6Hr 9.63 ng/L (0-15) 01/12/25 17:49 Troponin T Hi Sens 6Hr Delta -5.37 ng/L (0-12) L 01/12/25 17:49 C-Reactive Protein 114.9 mg/L (0.0-4.9) H 01/12/25 11:55 Total Protein 6.0 g/dL (6.6-8.7) L 01/20/25 03:45 Albumin 2.4 g/dL (3.5-5.2) L 01/20/25 03:45 Globulin 3.6 g/dL (1.3-4.6) 01/20/25 03:45 Vitamin B12 721 pg/mL (232-1245) 01/12/25 12:09 Procalcitonin 1.31 ng/mL (0-0.5) H 01/12/25 13:47 TSH 1.52 uIU/mL (0.27-4.20) 01/12/25 13:47 Nasal MRSA (PCR) Mrsa detected (Negative) A 01/13/25 12:36 Vancomycin Trough 10.2 ug/mL (10-15) 01/19/25 19:03 Urine Opiates Screen Positive ng/mL (Negative) H 01/12/25 22:00 Ur Barbiturates Screen Negative ng/mL (Negative) 01/12/25 22:00 Ur Phencyclidine Scrn Negative ng/mL (Negative) 01/12/25 22:00 Ur Amphetamines Screen Negative ng/mL (Negative) 01/12/25 22:00 U Benzodiazepines Scrn Positive ng/mL (Negative) H 01/12/25 22:00 Urine Cocaine Screen Negative ng/mL (Negative) 01/12/25 22:00 U Marijuana (THC) Screen Positive ng/mL (Negative) H 01/12/25 22:00 Coronavirus (PCR) Negative (Negative) 01/12/25 18:35 Hepatitis A IgM Ab Non-reactive (Nonreactive) 01/12/25 12:09 Hep Bs Antigen Non-reactive (Nonreactive) 01/12/25 12:09 Hep Bs Antibody 58.1 (11.5-1000) 01/12/25 12:09 Hep B Core Total Ab Non-reactive (Nonreactive) 01/12/25 12:09 Hepatitis C Antibody Reactive (Nonreactive) H 01/12/25 12:09 HCV RNA (PCR) IUs/ml 3.45 Log IU/mL (NOT DETECTED) H 01/12/25 16:34 HCV RNA (PCR) IU log10 2850 IU/mL (NOT DETECTED) H 01/12/25 16:34 Influenza A (PCR) Positive (Negative) 01/12/25 18:35 Influenza Type B (PCR) Negative (Negative) 01/12/25 18:35 RSV (PCR) Negative (Negative) 01/12/25 18:35 Radiology Impressions Chest CTA 01/12/25 14:04 IMPRESSION: 1. No pulmonary embolism. 2. Multifocal pneumonia predominantly along the right hemithorax. 3. Reactive mediastinal lymphadenopathy measuring up to 1.1 centimeters 4. Diffuse hepatic steatosis. Abdomen/Pelvis CT 01/12/25 15:45 IMPRESSION: 1. Diffuse hepatic steatosis and hepatomegaly with the liver measuring 24 centimeters. 2. Cholelithiasis. 3. Multifocal pneumonia along the right hemithorax. Head CT 01/14/25 11:05 IMPRESSION: 1. No acute intracranial hemorrhage or edema. 2. Mild bilateral frontal lobe atrophy. 3. New RIGHT mastoid air cell effusion. 4. No prior infarct. No acute edema. Mild small vessel disease. Chest X-Ray 01/20/25 04:00 IMPRESSION: 1. Nasogastric and endotracheal tubes in good position. 2. Mild improved aeration as compared to 01/18/2025 in the mid and lower lung walker. There is continued reticular interstitial opacification which is probably pneumonia and/or edema. 3. New lucency in the RIGHT upper quadrant below the diaphragm. This may potentially be free air. This could be air within the GI tract. Suggest follow- up noncontrast CT abdomen and pelvis to exclude free air. 4. Nasogastric and endotracheal tubes remain in good position. Chest/Abdomen/Pelvis CT 01/20/25 08:41 IMPRESSION: 1. No free air. 2. Small bilateral pleural effusions with consolidation in the lung bases. Patchy opacities in the upper lobes bilaterally. 3. Sludge or tiny calculi in the gallbladder. 4. Splenomegaly. 5. No other acute findings. Recent Clincial Data Last Vital Signs Temp 101.4 F H 01/20/25 15:28 Pulse 109 H 01/20/25 15:28 Resp 21 H 01/20/25 15:14 BP 130/81 01/20/25 15:28 Pulse Ox 94 01/20/25 15:28 O2 Del Method Mechanical Ventilation 01/20/25 15:10 O2 Flow Rate 50 01/17/25 16:00 FiO2 50 01/20/25 15:14 Vital Signs Temp Pulse Resp BP Pulse Ox O2 Del Method FiO2 01/20/25 15:28 101.4 F H 109 H 130/81 94 01/20/25 15:27 101.4 F H 109 H 130/81 94 01/20/25 15:19 103 H 01/20/25 15:14 21 H 94 50 01/20/25 15:10 101 H 22 H 94 Mechanical Ventilation 50 01/20/25 14:10 21 H 94 50 01/20/25 14:00 50 01/20/25 14:00 100.3 F H 101 H 16 129/78 Mechanical Ventilation 50 01/20/25 12:09 100.0 F H 105 H 133/74 93 01/20/25 11:28 100.0 F H 01/20/25 11:10 110 H 01/20/25 11:01 18 93 50 01/20/25 10:59 103 H 16 93 Mechanical Ventilation 50 01/20/25 10:00 130/83 01/20/25 09:30 114 H 130/83 92 01/20/25 09:00 112 H 142/79 91 01/20/25 08:30 112 H 137/83 89 L 01/20/25 08:00 102.6 F H 109 H 151/81 91 01/20/25 08:00 50 01/20/25 07:30 103 H 142/80 93 01/20/25 07:23 88 01/20/25 07:21 20 H 93 50 01/20/25 07:10 85 17 93 Mechanical Ventilation 50 01/20/25 07:00 83 125/68 93 01/20/25 06:30 81 126/76 93 01/20/25 06:00 74 14 114/72 95 Mechanical Ventilation 50 01/20/25 06:00 72 01/20/25 05:30 71 14 111/63 95 Mechanical Ventilation 50 01/20/25 05:00 70 14 108/63 96 Mechanical Ventilation 50 01/20/25 04:30 70 14 123/76 95 Mechanical Ventilation 50 01/20/25 04:00 97.7 F 73 14 123/78 95 Mechanical Ventilation 50 01/20/25 03:48 17 93 50 Intake & Output/Weight 02/22/25 01/19/25 01/20/25 01/21/25 06:59 06:59 06:59 06:59 Intake Total 1962.854 / 5647.652 3596.716 / 2243.716 3038.667 / 3038.667 955.858 / 955.858 Output Total 1400 / 1400 1350 / 1350 1425 / 1425 350 / 350 Balance 562.854 / 562.854 893.716 / 724.284 8912.667 / 1613.667 605.858 / 605.858 Weight 102 kg 101 kg 99 kg Vitals Last Vital Signs Temp 101.4 F H 01/20/25 15:28 Pulse 109 H 01/20/25 15:28 Resp 21 H 01/20/25 15:14 BP 130/81 01/20/25 15:28 Pulse Ox 94 01/20/25 15:28 O2 Del Method Mechanical Ventilation 01/20/25 15:10 O2 Flow Rate 50 01/17/25 16:00 FiO2 50 01/20/25 15:14 TS Medications Medications Albuterol/Ipratropium (Ipratropium-Albuterol 3 Ml Neb) 3 ml INHALATION QID.RESPIRATORY [facility] Last Admin: 01/20/25 15:13 Dose: 3 ml Chlorhexidine Gluconate (Chlorhexidine Gluconate 4% Btl 118 Ml) 1 applic TOPICAL DAILY PRN PRN Reason: For ventilated patient Last Admin: 01/19/25 00:00 Dose: 1 applic Colchicine (Colchicine 0.6 Mg Tablet) 0.6 mg NG-TUBE DAILY NELSY Last Admin: 01/20/25 09:00 Dose: 0.6 mg Folic Acid (Folic Acid 1 Mg Tablet) 1 mg PO DAILY NELSY Last Admin: 01/20/25 09:00 Dose: 1 mg Heparin Sodium (Porcine) (Heparin 5,000 Unit/Ml Inj 1 Ml) 5,000 unit SUBCUT Q8H NELSY Last Admin: 01/20/25 08:59 Dose: 5,000 unit Propofol (Diprivan) 1,000 mg in 100 mls @ 0 mls/hr IV .Q0M NELSY; Protocol Last Admin: 01/20/25 13:57 Dose: 70 mcg/kg/min, 41.53 mls/hr Midazolam HCl (Versed) 100 mg in 100 mls @ 0 mls/hr IV .Q0M NELSY; Protocol Last Admin: 01/20/25 05:41 Dose: 4 mg/hr, 4 mls/hr Fentanyl (Sublimaze) 2,500 mcg in 250 mls @ 0 mls/hr IV .Q0M NELSY; Protocol Last Admin: 01/20/25 07:32 Dose: 175 mcg/hr, 17.5 mls/hr Thiamine HCl 500 mg/ Sodium (Chloride) 105 mls @ 210 mls/hr IV TID NELSY Stop: 01/21/25 08:59 Last Admin: 01/20/25 15:31 Dose: 210 mls/hr Thiamine HCl 250 mg/ Sodium (Chloride) 102.5 mls @ 210 mls/hr IV DAILY NELSY Stop: 01/24/25 08:59 Multivitamins 10 ml/ Amino (Acids/Electrolytes/Dextrose) 1,010 mls @ 83 mls/hr IV .[id number] [facility] Last Infusion: 01/20/25 14:04 Dose: 83 mls/hr Vancomycin HCl (Vancocin) 1,750 mg in 350 mls @ 175 mls/hr IV Q12H [facility] Last Admin: 01/20/25 11:14 Dose: 175 mls/hr Lactulose (Lactulose Oral Liq 20 Gm/30 Ml Udc) 20 gm PO DAILY [facility] Last Admin: 01/20/25 09:00 Dose: 20 gm Lanolin (Lanolin Oint 7 Gm) 1 applic TOPICAL PRN PRN PRN Reason: DRY LIPS Last Admin: 01/17/25 12:23 Dose: 1 applic Lorazepam (Lorazepam 2 Mg/Ml Inj 1 Ml) 2 mg IVP Q4H PRN PRN Reason: ANXIETY Last Admin: 01/17/25 14:33 Dose: 2 mg Meropenem (Meropenem 1,000 Mg Sdv) 1,000 mg IVP Q8H [facility]; Protocol Last Admin: 01/20/25 11:14 Dose: 1,000 mg Methylprednisolone Sodium Succinate (Methylprednisolone Sod Succ 40 Mg/Ml Inj) 40 mg IVP Q24H NELSY Last Admin: 01/19/25 15:17 Dose: 40 mg Multivitamins Therapeutic (Multivitamin Therapeutic Tablet) 1 tab PO DAILY [facility] Last Admin: 01/20/25 09:00 Dose: 1 tab Ondansetron HCl (Ondansetron 2 Mg/Ml Sdv 2 Ml) 4 mg IVP Q6H PRN PRN Reason: NAUSEA AND VOMITING Pantoprazole Sodium (Pantoprazole 40 Mg Sdv) 40 mg IVP DAILY NELSY Last Admin: 01/20/25 08:58 Dose: 40 mg Ziprasidone (Ziprasidone 20 Mg/Ml Sdv) 10 mg IM NOW PRN PRN Reason: agitation Last Admin: 01/17/25 13:45 Dose: 10 mg Ziprasidone (Ziprasidone 20 Mg/Ml Sdv) 10 mg IM Q8H PRN PRN Reason: agitation Discontinued Medications Acetaminophen (Acetaminophen 325 Mg Tablet) 650 mg OG-TUBE ONCE ONE Stop: 01/20/25 09:20 Last Admin: 01/20/25 09:39 Dose: 650 mg Albuterol/Ipratropium (Ipratropium-Albuterol 3 Ml Neb) 3 ml INHALATION ONCE ONE Stop: 01/12/25 11:56 Last Admin: 01/12/25 12:16 Dose: 3 ml Albuterol/Ipratropium (Ipratropium-Albuterol 3 Ml Neb) 3 ml INHALATION ONCE ONE Stop: 01/12/25 12:19 Last Admin: 01/12/25 12:23 Dose: 3 ml Albuterol/Ipratropium (Ipratropium-Albuterol 3 Ml Neb) 3 ml INHALATION Q4H.RESPIRATORY NELSY Last Admin: 01/12/25 15:11 Dose: 3 ml Azithromycin (Azithromycin 250 Mg Tablet) 500 mg PO DAILY NELSY; Protocol Last Admin: 01/13/25 09:34 Dose: Not Given Azithromycin (Azithromycin 250 Mg Tablet) 500 mg NG-TUBE DAILY NELSY; Protocol Stop: 01/16/25 10:44 Last Admin: 01/16/25 08:10 Dose: 500 mg Ceftriaxone Sodium (Ceftriaxone 1,000 Mg Sdv) 1,000 mg IVP ONCE ONE; Protocol Stop: 01/12/25 12:36 Last Admin: 01/12/25 15:04 Dose: 1,000 mg Ceftriaxone Sodium (Ceftriaxone 1,000 Mg Sdv) 1,000 mg IVP Q24H NELSY; Protocol Last Admin: 01/14/25 14:54 Dose: 1,000 mg Epinephrine (Racepinephrine 0.5 Ml Neb) 0.5 ml INHALATION ONCE ONE Stop: 01/12/25 13:15 Last Admin: 01/12/25 13:21 Dose: 0.5 ml Etomidate (Etomidate 2 Mg/Ml Inj Sdv 10 Ml) 20 mg IVP NOW ONE Stop: 01/17/25 15:58 Last Admin: 01/17/25 16:19 Dose: 20 mg Furosemide (Furosemide 10 Mg/Ml Sdv 2ml) 20 mg IVP ONCE ONE Stop: 01/14/25 19:22 Last Admin: 01/14/25 19:31 Dose: 20 mg Furosemide (Furosemide 10 Mg/Ml Sdv 2ml) 20 mg IVP ONCE ONE Stop: 01/15/25 09:35 Last Admin: 01/15/25 10:09 Dose: 20 mg Furosemide (Furosemide 10 Mg/Ml Sdv 2ml) 20 mg IVP Q12H [facility] Last Admin: 01/17/25 03:43 Dose: 20 mg Haloperidol Lactate (Haloperidol Inj 5 Mg/Ml Inj 1 Ml) 5 mg IM NOW ONE Stop: 01/17/25 11:49 Last Admin: 01/17/25 11:59 Dose: 5 mg Haloperidol Lactate (Haloperidol Inj 5 Mg/Ml Inj 1 Ml) 5 mg IM Q6H PRN PRN Reason: AGITATION Heparin Sodium (Porcine) (Heparin 5,000 Unit/Ml Inj 1 Ml) 5,000 unit SUBCUT Q12H [facility] Last Admin: 01/14/25 15:01 Dose: 5,000 unit Sodium Chloride (Sodium Chloride 0.9%) 1,000 mls @ 999 mls/hr IV .Q1H1M ONE Stop: 01/12/25 12:55 Last Infusion: 01/12/25 19:00 Dose: Infused Azithromycin 500 mg/ Sodium (Chloride) 250 mls @ 250 mls/hr IV ONCE ONE; Protocol Stop: 01/12/25 13:34 Last Infusion: 01/12/25 19:00 Dose: Infused Sodium Chloride (Sodium Chloride 0.9%) 1,000 mls @ 999 mls/hr IV .Q1H1M ONE Stop: 01/12/25 13:35 Last Infusion: 01/12/25 19:00 Dose: Infused Sodium Chloride (Sodium Chloride 0.9%) 1,000 mls @ 125 mls/hr IV .Q8H [facility] Last Infusion: 01/14/25 19:40 Dose: Infused Dexmedetomidine/Sodium Chloride (Precedex) 400 mcg in 100 mls @ 0 mls/hr IV .Q0M NELSY; Protocol Last Titration: 01/13/25 10:45 Dose: 0 mcg/kg/hr, 0 mls/hr Dexmedetomidine/Sodium Chloride (Precedex) Confirm Administered Dose 400 mcg in 100 mls @ as directed .ROUTE .ST-MED ONE Stop: 01/12/25 21:08 Last Admin: 01/12/25 22:57 Dose: Not Given Sodium Chloride (Sodium Chloride 0.9%) 1,000 mls @ 999 mls/hr IV .Q1H1M ONE Stop: 01/13/25 01:21 Last Infusion: 01/13/25 02:02 Dose: Infused Vancomycin HCl / Sodium (Chloride) 250 mls @ 0 mls/hr [id number] PROTOCOL NELSY; Protocol Fentanyl (Sublimaze) 1,000 mcg in 100 mls @ 0 mls/hr IV .Q0M NELSY; Protocol Last Titration: 01/18/25 16:46 Dose: Infused Midazolam HCl (Versed) 100 mg in 100 mls @ 0 mls/hr IV .Q0M NELSY; Protocol Last Titration: 01/17/25 04:45 Dose: Infused Vancomycin HCl (Vancocin) 3,000 mg in 600 mls @ 200 mls/hr IV ONCE ONE Stop: 01/13/25 13:59 Last Infusion: 01/13/25 19:00 Dose: Infused Vancomycin HCl (Vancocin) 1,250 mg in 250 mls @ 166.667 mls/hr IV Q8H [facility] Last Infusion: 01/14/25 06:10 Dose: Infused Etomidate (Amidate) Confirm Administered Dose 10 mls @ as directed .ROUTE .[facility] Stop: 01/13/25 10:53 Last Infusion: 01/13/25 12:34 Dose: 0 mls/hr Norepinephrine Bitartrate (Levophed) 4 mg in 250 mls @ 0 mls/hr IV .Q0M NELSY; Protocol Last Titration: 01/15/25 19:22 Dose: Infused Propofol (Diprivan) Confirm Administered Dose 1,000 mg in 100 mls @ as directed .ROUTE .[facility] Stop: 01/13/25 11:42 Sodium Chloride (Sodium Chloride 0.9%) 1,000 mls @ 75 mls/hr IV .[id number] [facility] Last Infusion: 01/17/25 20:16 Dose: Infused Vancomycin HCl (Vancocin) 1,250 mg in 250 mls @ 166.667 mls/hr IV Q12H NELSY Vancomycin HCl (Vancocin) 1,250 mg in 250 mls @ 166.667 mls/hr IV Q12H [facility] Last Admin: 01/16/25 03:13 Dose: Not Given Vancomycin HCl 1,000 mg/ (Sodium Chloride) 250 mls @ 250 mls/hr IV Q12H [facility] Stop: 01/17/25 21:00 Last Infusion: 01/17/25 22:07 Dose: Infused Dexmedetomidine/Sodium Chloride (Precedex) 400 mcg in 100 mls @ 0 mls/hr IV .Q0M NELSY; Protocol Last Titration: 01/17/25 16:54 Dose: Infused Sterile Water (Water) Confirm Administered Dose 10 mls @ as directed .ROUTE .[facility] ONE Stop: 01/17/25 12:16 Last Admin: 01/17/25 13:44 Dose: Not Given Thiamine HCl 500 mg/ Sodium (Chloride) 105 mls @ 210 mls/hr IV ONCE ONE Stop: 01/17/25 15:44 Last Infusion: 01/17/25 20:15 Dose: Infused Vancomycin HCl (Vancocin) 1,250 mg in 250 mls @ 166.667 mls/hr IV Q12H [facility] Last Infusion: 01/18/25 09:37 Dose: Infused Vancomycin HCl (Vancocin) 1,250 mg in 250 mls @ 166.667 mls/hr IV Q12H [facility] Last Infusion: 01/19/25 11:36 Dose: Infused Vancomycin HCl (Vancocin) 1,750 mg in 350 mls @ 175 mls/hr IV ONCE ONE Stop: 01/19/25 23:29 Last Infusion: 01/20/25 06:09 Dose: Infused Iohexol (Iohexol 350 Mg/Ml 500 Ml Btl (Per Ml)) 0 ml IV ONCE ONE Stop: 01/12/25 14:54 Last Admin: 01/12/25 14:53 Dose: 75 ml Lactulose (Lactulose Oral Liq 20 Gm/30 Ml Udc) 20 gm PO Q6H [facility] Last Admin: 01/14/25 12:38 Dose: Not Given Lorazepam (Lorazepam 2 Mg/Ml Inj 1 Ml) 1 mg IVP ONCE ONE Stop: 01/12/25 14:35 Last Admin: 01/12/25 14:39 Dose: 1 mg Lorazepam (Lorazepam 2 Mg Tablet) 2 mg PO Q4H PRN; Protocol PRN Reason: WITHDRAWAL Lorazepam (Lorazepam 2 Mg/Ml Inj 1 Ml) 2 mg IM Q4H PRN; Protocol PRN Reason: ALCOHOL WITHDRAWAL Lorazepam (Lorazepam 2 Mg/Ml Inj 1 Ml) 2 mg IVP PRN PRN; Protocol PRN Reason: WITHDRAWAL Last Admin: 01/13/25 11:34 Dose: 2 mg Lorazepam (Lorazepam 2 Mg/Ml Inj 1 Ml) 3 mg IVP ONCE ONE Stop: 01/12/25 21:04 Last Admin: 01/12/25 21:15 Dose: 3 mg Lorazepam (Lorazepam 2 Mg/Ml Inj 1 Ml) Confirm Administered Dose 4 mg .ROUTE .STK-MED ONE Stop: 01/12/25 21:08 Last Admin: 01/12/25 23:00 Dose: Not Given Lorazepam (Lorazepam 2 Mg/Ml Inj 1 Ml) 3 mg IVP ONCE ONE Stop: 01/12/25 21:08 Last Admin: 01/12/25 21:07 Dose: 3 mg Lorazepam (Lorazepam 2 Mg/Ml Inj 1 Ml) 2 mg IVP ONCE STA Stop: 01/17/25 11:50 Last Admin: 01/17/25 12:00 Dose: 2 mg Methylprednisolone Sodium Succinate (Methylprednisolone Sod Succ 125 Mg/2 Ml Inj) 125 mg IV ONCE ONE Stop: 01/12/25 11:56 Last Admin: 01/12/25 12:03 Dose: 125 mg Methylprednisolone Sodium Succinate (Methylprednisolone Sod Succ 125 Mg/2 Ml Inj) 125 mg IVP ONCE ONE Stop: 01/12/25 13:12 Last Admin: 01/12/25 13:27 Dose: Not Given Methylprednisolone Sodium Succinate (Methylprednisolone Sod Succ 40 Mg/Ml Inj) 40 mg IVP Q12H NELSY Last Admin: 01/16/25 15:00 Dose: Not Given Morphine Sulfate (Morphine 4 Mg/Ml Sdv 1 Ml) 2 mg IVP ONCE ONE Stop: 01/12/25 21:15 Last Admin: 01/12/25 21:17 Dose: 2 mg Morphine Sulfate (Morphine 4 Mg/Ml Sdv 1 Ml) Confirm Administered Dose 4 mg .ROUTE .STK-MED ONE Stop: 01/12/25 21:16 Morphine Sulfate (Morphine 4 Mg/Ml Sdv 1 Ml) 2 mg IVP ONCE ONE Stop: 01/12/25 21:37 Last Admin: 01/12/25 21:38 Dose: 2 mg Morphine Sulfate (Morphine 4 Mg/Ml Sdv 1 Ml) 4 mg IVP ONCE ONE Stop: 01/12/25 22:05 Last Admin: 01/12/25 22:05 Dose: 4 mg Morphine Sulfate (Morphine 4 Mg/Ml Sdv 1 Ml) Confirm Administered Dose 4 mg .ROUTE .STK-MED ONE Stop: 01/12/25 22:06 Last Admin: 01/12/25 23:01 Dose: Not Given Morphine Sulfate (Morphine 4 Mg/Ml Sdv 1 Ml) 4 mg IVP ONCE ONE Stop: 01/17/25 12:38 Last Admin: 01/17/25 13:09 Dose: 4 mg Oseltamivir Phosphate (Oseltamivir Phosphate 75 Mg Capsule) 75 mg NG-TUBE BID NELSY Stop: 01/18/25 17:59 Last Admin: 01/18/25 08:08 Dose: 75 mg Phenobarbital Sodium (Phenobarbital 130 Mg/Ml Sdv 1 Ml) 130 mg IVP ONCE ONE Stop: 01/12/25 20:41 Last Admin: 01/12/25 20:51 Dose: 130 mg Propofol (Propofol 10 Mg/Ml Sdv 20 Ml) Confirm Administered Dose 200 mg .ROUTE .STK-MED ONE Stop: 01/13/25 10:53 Last Admin: 01/13/25 11:03 Dose: 200 mg Succinylcholine Chloride (Succinylcholine 20 Mg/Ml Sdv 10ml) Confirm Administered Dose 200 mg .ROUTE .STK-MED ONE Stop: 01/13/25 10:54 Last Admin: 01/13/25 12:15 Dose: 200 mg Succinylcholine Chloride (Succinylcholine 20 Mg/Ml Sdv 10ml) 100 mg IVP NOW ONE Stop: 01/17/25 15:58 Last Admin: 01/17/25 16:19 Dose: 100 mg Thiamine HCl (Thiamine 100 Mg/Ml 2ml Sdv) 100 mg IM ONCE ONE Stop: 01/12/25 15:31 Last Admin: 01/12/25 16:02 Dose: 100 mg Thiamine Mononitrate (Thiamine 100 Mg Tablet) 100 mg PO DAILY NELSY Last Admin: 01/18/25 08:08 Dose: 100 mg Ziprasidone (Ziprasidone 20 Mg/Ml Sdv) 10 mg IM NOW ONE Stop: 01/17/25 11:55 Last Admin: 01/17/25 12:14 Dose: Not Given Ziprasidone (Ziprasidone 20 Mg/Ml Sdv) Confirm Administered Dose 20 mg .ROUTE .STK-MED ONE Stop: 01/17/25 12:16 Allergies No Known Allergies Allergy (Verified 01/03/20 11:25) Home Medications ibuprofen 200 mg capsule 600 mg PO Q6H PRN Pain 12/11/19 [History Confirmed 01/12/25] Discharge Plan Discharge Patient Disposition: Xfer Other Condition: Stable Prescriptions: No Action ibuprofen 200 mg capsule 600 mg PO Q6H PRN (Reason: Pain) Transfer Attestations Time Spent in Transfer Care: greater than 30 min Quality Metrics Clinical Quality Measures [ No reported AMI, CVA or VTE this stay] Coding Level of Care Code Acute Code for g Fwd Diagnoses Multifocal pneumonia J18.9 Alcohol abuse F10.10 Alcohol withdrawal seizure F10.939; R56.9 Thrombocytopenia D69.6 Hyponatremia E87.1 BiPAP (biphasic positive airway pressure) dependence Z99.89 ARDS (adult respiratory distress syndrome) J80 Delirium tremens F10.931 AMS (altered mental status) R41.82 Metabolic encephalopathy G93.41 Influenzal pneumonia J11.00 Acute gout M10.9
[2025-01-20] MEDS: methylPREDNISolone sod succ 125 mg/2 mL INJ 40 MG IVP (16:22)
[2025-01-20] MEDS: micafungin 100 MG in sodium chloride 0.9% (plus) 100 ML IV (17:38)
--- NOTE | 2025-01-20 18:19 | USCV_ITS ---
Mario Kruger Age: 59 Gender: M : 1965 Exam Date: 01/20/2025 11:33 Ordering Phys: Tuyet Aleman MD Technologist: Exam [place] [facility] [place]: bilat edema PROCEDURES: The venous duplex Doppler examination of both lower extremities was performed in the standard fashion. The following venous structures were evaluated: common femoral vein, profunda vein, proximal portion of the greater saphenous vein, superficial femoral vein, and the popliteal vein. FINDINGS: Normal 2-D Doppler and augmentation and compressibility throughout the lower extremity venous structures. Additional imaging through the proximal calf veins also reveals no thrombus. Limited evaluation of the greater saphenous vein is patent with no thrombus. CONCLUSIONS No evidence of right lower extremity DVT. No evidence of left lower extremity DVT. Cesario Perez MD (Electronically Signed) Final Date: 20 January 2025 15:50 S
[2025-01-21] VITALS (57 sets, daily range): BP systolic 107–153; BP diastolic 60–96; PULSE 75–129; RESP 14–24; TEMP 36.6–39.3; O2SAT 89–96; BMI 31.4
[2025-01-21] MEDS: vancomycin 1,750 MG/350 ML PIGGYBACK 175 MG IV ×2 (00:01→10:05)
[2025-01-21] MEDS: heparin 5,000 unit/mL INJ 1 mL 5000 UNIT SUBCUT ×3 (00:02→15:30)
[2025-01-21] MEDS: AA-Dex 8%-10% w/ lytes 1,000 ML with multivitamin inj 10 ML 83 ML IV ×2 (00:33→13:04)
[2025-01-21] MEDS: midazolam hcl 100 MG/100 ML BAG IV (02:01)
[2025-01-21] MEDS: propofol 1,000 MG/100 ML INJ 41.53 MG IV ×9 (02:14→22:02)
[2025-01-21] MEDS: meropenem 1,000 mg SDV 1000 MG IVP ×3 (04:01→19:31)
[2025-01-21 05:10] LABS: Basophils % 0.3 %; Eosinophils # 0.1 10^3/uL (0.0-0.8); Eosinophils % 1.3 %; Hematocrit 33.4 % (37-53); Lymphocytes # 0.6 10^3/uL (0.8-4.8); Lymphocytes % 9.3 %; Mean Corpuscular Hemoglobin 36.5 pg (27-33); Mean Platelet Volume 11.5 fL (7.4-10.4); Monocytes # 0.2 10^3/uL (0.2-0.9); Monocytes % 3.9 %; Neutrophils # 5.16 10^3/uL (1.8-7.7); Neutrophils % 84.5 %; Nucleated Red Blood Cells % 0 %; Platelet Count 167 10^3/cmm (157-399); Red Blood Count 2.93 10^6/uL (3.85-5.65); Red Cell Distribution Width 14.6 % (12.1-15.1); White Blood Count 6.11 10^3/uL (3.29-11.43)
[2025-01-21 05:31] LABS: Alanine Aminotransferase 54 U/L (0-41); Albumin Level 2.3 g/dL (3.5-5.2); Alkaline Phosphatase 256 U/L (40-130); Anion Gap 12.9 (5-19); Aspartate Amino Transferase 50 U/L (0-40); Blood Urea Nitrogen 25 mg/dL (6-20); Calcium 7.9 mg/dL (8.5-10.5); Carbon Dioxide 25 mmol/L (22-29); Chloride 110 mmol/L (98-107); Globulin 3.5 g/dL (1.3-4.6); Glomerular Filtration Rate 171.4 mL/min (90-130); Glucose 121 mg/dL (65-115); Magnesium 2.4 mg/dL (1.7-2.3); Osmolality Calculated 304 mOsm/kg (285-295); Potassium 3.9 mmol/L (3.5-5.1); Sodium 144 mmol/L (136-145); Total Protein 5.8 g/dL (6.6-8.7)
[2025-01-21] MEDS: ipratropium-albuterol 3 mL Neb INHALATION ×4 (07:39→20:07)
[2025-01-21] MEDS: folic acid 1 mg Tablet PO (08:40)
[2025-01-21] MEDS: multivitamin therapeutic Tablet 1 TAB PO (08:40)
[2025-01-21] MEDS: colchicine 0.6 mg Tablet NG-TUBE (08:40)
[2025-01-21] MEDS: thiamine 250 MG in sodium chloride 0.9% (100 ml) 100 ML 210 MG IV (08:45)
[2025-01-21] MEDS: pantoprazole 40 mg SDV IVP (08:54)
[2025-01-21] MEDS: lactulose oral liq 20 gm/30 mL UDC PO (08:54)
[2025-01-21] MEDS: fentaNYL 2,500 MCG/250 ML BAG 17.5 MCG IV (10:04)
--- NOTE | 2025-01-21 10:56 | PC.NURSE ---
Dr. Lott rounding discussing patients POC. Gave verbal orders to start waking the patient up to see how he does. Turned versed off and received orders for 2mg IVP ativan q4hr PRN.
[2025-01-21] MEDS: LORazepam 2 mg/mL INJ 1 mL IVP (11:47)
--- NOTE | 2025-01-21 13:35 | PC.NURSE ---
Patients temp continues to increase, notified Dr. Lott, received PRN order for Tylenol 650mg q6hr via OG. Order placed.
--- NOTE | 2025-01-21 14:42 | PM.PN ---
Subjective Subjective: Called [facility] in [place] however no beds are available and they are on ICU divert at this time. Patient was afebrile overnight however this morning had another temp of 100.3. Will remove femoral line today and place peripheral IV and if needed for more access may order another central line via anesthesia. Blood cultures, sputum culture, urine culture is pending. Beta D glucan was ordered yesterday that is also pending at well. FiO2 down to 40%. Discussed with nursing staff to wean off sedation and see how patient does. Vitals/I&O/Wt Last Vital Signs Temp 100.3 F H 01/21/25 09:00 Pulse 115 H 01/21/25 14:00 Resp 17 01/21/25 12:36 BP 128/82 01/21/25 14:00 Pulse Ox 92 01/21/25 14:00 O2 Del Method Mechanical Ventilation 01/21/25 12:25 O2 Flow Rate 50 01/17/25 16:00 FiO2 40 01/21/25 12:36 01/20/25 01/21/25 01/21/25 22:59 06:59 14:59 Intake Total 1125 / 2080.858 1750.875 / 3831.733 Output Total 1200 / 1550 1100 / 2650 Balance -75 / 530.858 650.875 / 7158.533 3500 Weight last 48 hrs Weight 102 kg Weight 99 kg Physical Exam Narrative: General: Intubated, sedated HEENT: PERRLA, pupils bilaterally equal and reactive, pallors not present Chest: Clear to auscultation bilaterally CVS: S1-S2 regular, no murmurs, no tachycardia, no gallops, no rubs Abdomen: Soft, nontender, no organomegaly, bowel sounds present Neuro: Unable to assess Femoral line on the right side in place with no erythema or swelling around insertion site. No swelling noted at toes bilaterally. On 40% FiO2 on vent. Tidal volume 600. Urinary Catheter Management: Sadler: Cath Placed During This Visit: yes Reason for Continuing Indwelling Catheter: Accurate Measurement of Urinary Output in Critically Ill Patients Urinary Catheter Date of Insertion: 01/12/25 Urinary Catheter Time of Insertion: 22:00 Data 01/21/25 04:38 01/21/25 04:38 Micro: Microbiology 01/20/25 03:45 Blood Culture - Preliminary Blood NEGATIVE TO DATE 01/20/25 03:45 Blood Culture - Preliminary Blood NEGATIVE TO DATE 01/20/25 15:50 Blood Culture - Preliminary Blood SPECIMEN COLLECTED 01/20/25 15:39 Blood Culture - Preliminary Blood SPECIMEN COLLECTED 01/17/25 16:40 Gram Stain - Final Sputum - Endotracheal Tube Aspirate Sputum Culture - Final A&P Assessment and plan (1) Multifocal pneumonia: (2) Alcohol abuse: (3) Alcohol withdrawal seizure: (4) Thrombocytopenia: (5) Hyponatremia: (6) BiPAP (biphasic positive airway pressure) dependence: (7) ARDS (adult respiratory distress syndrome): (8) Delirium tremens: (9) AMS (altered mental status): (10) Metabolic encephalopathy: (11) Influenzal pneumonia: (12) Acute gout: Plan #Shortness of breath secondary to multifocal pneumonia #Sepsis secondary to multifocal pneumonia?criteria met by elevated lactic acid, tachycardia, acute hypoxia #Alcohol abuse #Alcohol withdrawal #History of alcohol withdrawal seizures #Recent upper respiratory illness #Noncompliance, does not follow with a doctor #Lactic acidosis #Untreated hepatitis C #Hyponatremia #Thrombocytopenia ? Placed on DuoNeb every 6 hours scheduled. Patient given Solu-Medrol 125 IV in the ER once ? Placed on Solu-Medrol 40 IV twice daily ? Check bacterial antigen and strep antigen ? Continue ceftriaxone azithromycin ? Placed on thiamine folic acid, CIWA protocol ? I will give 1 mg Ativan IV right now as patient is very anxious. ? Check CTA chest to rule out PE ? Check hepatitis profile ? Patient will need to be set up with primary care doctor and GI at time of discharge ? Will escalate to BiPAP at this time. Low threshold for intubation. Patient is a full code and agreeable to intubation if required. ? Check procalcitonin ? Elevated liver enzymes most likely secondary to untreated hepatitis. Bilirubin most likely secondary to liver disease as well. ? Check CT abdomen pelvis ? Check GGT ? Sodium 125 most likely secondary to alcohol abuse. Will check urine sodium, serum, urine osmolality ? Placed on normal saline 100 cc/h. Patient appears to be dehydrated. Chloride 83. ? EKG does show sinus tachycardia. Patient denies any chest pain at this time. Troponins negative x 3. ? Check vitamin B12 level. ? Initial lactic acid 4.2, repeat is reflex. ? Check lipid panel, hemoglobin A1c, TSH ? Will admit to ICU at this time. May use Precedex drip if needed Full code DVT prophylaxis: Heparin SQ twice daily 01/13/25: Admitted 01/11 with Hypoxia and alcohol withdrawal. Per life partner at bedside, he drinks a pint of drink every day. Last drink was on morning of admission. Patient is currently on precedex maxed at 1.2 at this time. Additionally has been receviing pushes of phenobarbital and Ativan. he is obtunded at this time. does not wake up to calling name or painful stimulus. On strenal rub, he starts to have significant tremors without any other meaningful response. Overall concern for delirium tremens, likely also with metabolic encephalopathy related to ARDS. Cannot r/o viral encephalitis at this time. Patient is currently in ARDS from multifocal PNA. Pa02 at 60% at 80% fi02 on Bipap. Pa02, fi02 ratio of 75 consistent with severe ARDS. We will proceed with intubation and mechanical ventilation today given poor mentation, inability to protect airway, obtunded on Bipap, severe ARDS and delirium tremens. Will obtain CT head once intubated. His partner is currently at bedside and updated regarding critical events. T max 100.6 He has been on rx with ceftriaxone and azithromyin. Add Vancomycin for additional MRSA coverage. Add Tamiflu 75mg BID Check MRSA nares. Check sputum cx and graim stain. Check Ammonia level . Blood cx negative thus far DVT ppx: heparin to d/c today due to thrombocytopenia, plt at 69 k today, SCDS onlt for now PUD ppx: protonix 40 mg daily January 14, 2025. Patient intubated yesterday by anesthesia. Patient noted to have clear almost bilious appearing contents come out of his ET tube. Suspect that may have aspirated upon initial arrival. Life partner reports that patient drinks at least a pint every day. Chest x-ray taken today showing persistent mixed interstitial and alveolar infiltrates bilaterally with small pleural effusions overall slightly worse compared to the day prior. Discontinue IV fluids as suspect fluid overload also contributing. Lasix 20 mg IV x 1 now. Assess for urine output and kidney function prior to administering further Lasix doses. Discontinue ceftriaxone. Broaden antibiotic coverage to meropenem 1 g IV every 8 hours for broader gram-negative coverage and also for anaerobic coverage with suspected aspiration. Continue vancomycin. Sputum culture currently pending. Continue azithromycin. Patient remains on respiratory support with mechanical ventilation at this point. High FiO2 requirement of 80%, PEEP of 10. ABG with hypoxic hypercapnic respiratory acidosis, not ready for vent weaning yet. Blood culture remains negative to date. Continue Tamiflu 75 mg twice daily. Ammonia level elevated at 83, possibly hepatic encephalopathy contributing to his overall encephalopathic picture. Started lactulose 20 every 6 hours overnight, today he is having diarrhea as a result. Will change lactulose to daily dosing at this point. Ammonia has serially improved over [address] head additionally performed today as he is noted to have some abrasions over his left temporal area and continues to be obtunded. No signs of acute intracranial hemorrhage or edema. There is mild bilateral frontal lobe atrophy likely related to alcohol abuse. Possibility of Warnicke's encephalopathy not excluded. Unable to get MRI while patient is on ventilator. Continue thiamine 100 mg daily. January 15, 2025 Received Lasix 20 mg IV last evening and then again this morning. He is overall net +6700 cc since admission[address] Will place him on 20 mg IV Lasix every 12 hours. Closely monitor for kidney function. Noted to have mild leukopenia today, likely related to acute infection, likely alcoholic hepatitis. Continue to monitor. Platelet counts improved at 100,000. Patient had spontaneous nosebleed yesterday therefore would not resume heparin currently. Attempts to wean down sedation this morning were not well-tolerated. Vent requirements slightly better today with FiO2 down to 60%. Continued attempts at weaning down requirements. Continue meropenem, vancomycin and azithromycin. Sputum culture pending. Tamiflu course to be completed for 5 days. January 16, 2025 Fi02 requirements down at 45% today. Continue meropenem, vancomycin and lasix. D/c azithromycin. Leukopenia, thrombocytopenia improving. D/c versed today, transition to Precedex with intention of vent weaning over the next 2-3 days. Less tachycardic today. Hopefully DTs resolving, however will only be clearly evident once extubated. Likely also has added components of hepatic encephaolpathy, metabolic encephalopathy from acute infection vs Wernicke's not excluded. Called to update life partner- no answer today January 17, 2025 FiO2 requirements and PEEP were improved today. Patient was extubated this morning, he remained calm only for a short while afterwards. Thereafter he has been on maximum dose of Precedex at 1.5, he has received Geodon 10 mg IM, received Haldol 5 mg IM, Ativan 2 mg IV however continues to be agitated. Postextubation he is additionally tachycardic, Tmax 99.8 Fahrenheit. He remains encephalopathic. His last drink was on the day of admission on January 12, 2025. I am uncertain if DTs would explain his persisting encephalopathy. I had plan to obtain an MRI once patient was extubated, however he is currently unable to lay flat to be able to proceed with the MRI imaging to look for Wernicke's encephalopathy. Will presumptively give him thiamine 500 mg IV x 1 and continue daily maintenance dosing. Will recheck ammonia level. Yesterday it was trending down at 42. He has not had a bowel movement today. CT of his head was earlier negative for stroke. Discussed with his significant other that patient is at a high risk of reintubation given his extreme agitation and potential for injury to self due to uncontrolled agitation. She is agreeable to reintubate if needed. Continue meropenem and IV vancomycin. January 18, 2025 Patient needed to be reintubated yesterday as he was increasingly agitated. Discontinue Lasix as patient clinically appearing to be euvolemic.. Continue presumptive treatment for Wernicke's encephalopathy with IV thiamine. Continue mechanical ventilation, sedated with fentanyl propofol and Versed. Continue IV antibiotics meropenem and vancomycin. All updates discussed with patient's . Life partner Siri Zimmerman. Discussed possible transition to LTAC,, she states she would like to wait until Monday to make a final decision. January 19, 2025 Versed was attempted to be weaned down today, however patient started being agitated, He moved all extremities while laying in bed, however did not follow any commands. Became tachycardic, diaphoretc with attempts to wean. Contineu fentanyl, propofol and versed gtt. patient's significant other was upset at attempts to wean down sedation today, however we discussed the importance of sedation vacation in order to assess patient's underlying mental status. Early extubation is always preferable. Discussed complications of prolonged intubation and the need to reassess mental status on a frequent/nearly daily basis. Start TPN for parenteral nutrition. Continue IV antibiotics meropenem and vancomycin. Recheck blood cultures with a.m. labs, low-grade fever 99.8 Fahrenheit today. Patient additionally noted to have new swelling over the left metatarsophalangeal joint, reports a past history of presumed gout with recurrent swelling over small joints of feet. Methylprednisolone 40 mg IV for the same. Add colchicine 0.6 mg daily. Avoiding NSAIDs to minimize risk of bleeding/stress ulcers and SEAN. Low-grade fever may be related to gout flare. Additionally check for DVT given patient needed to be off DVT prophylaxis due to nosebleed. Resume heparin 5000 unit every 8 hours prophylaxis today as no recurrent nose bleeds. Continue presumptive treatment for Wernicke's encephalopathy with iv thiamine 500mg iv TID followed by 250mg iv daily. Will order spot EEG to assess for seizures. All updates discussed with life partner at bedside 01/20/2025 Overnight patient developed fever 102.4 and is currently having fever 101.4. He was given Tylenol earlier. Blood cultures, urine culture, sputum culture Gram stain from ET tube, beta D glucan have been ordered. He is having thick secretions from ET tube. We will continue vancomycin and meropenem at this time. Called patient's daughter over the phone however was unable to get a hold of her. No option to leave a voicemail. Discussed with patient's significant other Siri Zimmerman over the phone who has requested patient to be transferred to [facility] in [place]. She states patient's family is in [place] and he had moved to [place] recently to be with Ms. Zimmerman however since his extended family is in [place] she would like for him to be transferred up there. She also stated that they are not interested in LTAC at this time and she would like for him to go to another hospital for further care. She states that she is in touch with patient's daughter and she will let her know regarding the above decision. She states patient's daughter and Ms. Zimmerman have been in agreement regarding transfer. Discussed case with [facility] in [place] or currently on ICU divert. However they have taken down information for the patient and state that she had a bed become available going forward during the day they will call back and speak to the doctor on-call available at that time. I will get a disc ready with patient's imaging studies. I will broaden patient's antibiotic coverage and add vancomycin. Will add micafungin as well. Will place on Tylenol every 6 hours as needed for fever. Will check blood cultures, sputum culture Gram stain, urine culture. Femoral line does not appear to be infected however if patient continues to have a fever may consider removal and placement of another IV. Will continue to check electrolytes daily. 01/21/2025 Seen this morning. Afebrile overnight however this morning had another fever 100.3. Will plan for sedation vacation. Will see if patient tolerates being off Versed. If needed may give Ativan 2 mg every 4 hours as needed. Will try to wean down fentanyl and propofol as well to see if patient tolerates. ? FiO2 has been weaned down to 40% for respiratory therapy. ET tube having thick secretions. Patient sounds quite rhonchorous. May require bronchoscopy going forward. He will be difficult to wean from the ventilator. LTAC facility is still evaluating however family not interested in going to LTAC and they would like to be transferred to another hospital ICU. No beds available in [place] which is her first preference at this time. Will discuss with family today if they are willing to go possibly towards [place] versus [place] and may consider transferring there. Infectious disease specialty not available at our hospital this week. Patient does have fever. Will remove femoral line today. Will discuss with nursing staff. ? Await culture reports. Await beta D glucan PA F ratio slightly improved compared to admission. Patient does have severe ARDS. Continue current management with Vanco meropenem and micafungin. Clear source of fever at this time. PDMP PDMP Reviewed: Not Reviewed Attestations Medical Necessity Statement*: The high probability of a clinically significant, sudden or life threatening deterioration of the patient's [respiratory, renal, cardiovascular, neurological] system(s) required my full and direct attention, intervention and personal management. The critical care time is as shown. This time is in addition to time spent performing any reported procedures but includes the following: [x] Data and vital sign review and interpretation [x] Patient assessment, examination and intervention [x] Documentation [x] Medication orders and management Critical Care Time (min): 65 Coding Level of Care Code Acute Code for Chg Fwd Diagnoses Multifocal pneumonia J18.9 Alcohol abuse F10.10 Alcohol withdrawal seizure F10.939; R56.9 Thrombocytopenia D69.6 Hyponatremia E87.1 BiPAP (biphasic positive airway pressure) dependence Z99.89 ARDS (adult respiratory distress syndrome) J80 Delirium tremens F10.931 AMS (altered mental status) R41.82 Metabolic encephalopathy G93.41 Influenzal pneumonia J11.00 Acute gout M10.9
[2025-01-21] MEDS: acetaminophen 325 mg Tablet 650 MG OG-TUBE (15:16)
[2025-01-21] MEDS: methylPREDNISolone sod succ 125 mg/2 mL INJ 40 MG IVP (15:28)
--- NOTE | 2025-01-21 17:18 | XRR_ITS ---
PROCEDURE INFORMATION: Exam: XR Chest Exam date and time: 01/21/2025 5:24 PM Age: 59 years old Clinical indication: Device placement; Other: Central line; Additional info: Central line placement TECHNIQUE: Imaging protocol: Radiologic exam of the chest. Views: 1 view. COM[place] [id number] 01/20/2025 9:53 AM FINDINGS: Tubes, catheters and devices: Endotracheal tube is present with its distal tip 2.3 cm from the hunter. Enteric feeding tube is present with its distal tip and side port subdiaphragmatic. Right-sided central venous catheter with its distal tip at superior atrial caval junction. Lungs: Redemonstration of patchy bilateral airspace opacities greatest at the lower lungs on the left where there are areas of consolidation. There is a degree of central pulmonary vasculature congestion. Pleural spaces: There may be small bilateral pleural effusions. No sizable pneumothorax. Heart/Mediastinum: Unremarkable. No cardiomegaly. Bones/joints: Unremarkable. XR/XR chest 1V portable [id number] IMPRESSION: As above.
[2025-01-21] MEDS: micafungin 100 MG in sodium chloride 0.9% (plus) 100 ML IV (17:20)
--- NOTE | 2025-01-21 17:35 | PM.CCN ---
Critical Care Event Note Hospitalist request for central line placement and ICU patient. Patient currently on ventilator. Critical Care Time Code activated: No Critical Care Time (min): 0 Procedures Central Line Placement^ Right IJ: Time out performed: Yes Patient placed on monitor/pulse ox: Yes MD prep: mask, gown and gloves Central line prep: Chlorhexidine scrub Ultrasound used for placement: Yes Central line lumen inserted: triple Post procedure: sutured in place, good blood return and all ports aspirated, flushed, capped Patient tolerated procedure: well Complications: none Coding Level of Care Code Acute Code for g Fwkayli
--- NOTE | 2025-01-21 18:10 | PC.NURSE ---
Patient remains febrile, rectal probe placed. Dr Lott notified PRN order for tylenol placed. Resp panel ordered and sent to lab, Dr De León came and placed new central line in Right IJ. Xray verified placement. Will remove femoral line and send tip for culture per Dr Baron orders
[2025-01-21 19:55] LABS: Adenovirus Not Detected (NOT DETECT); Chlamydia Pneumoniae Not Detected (NOT DETECT); Coronavirus 229E,HKU1,NL63,OC4 Not Detected (NOT DETECT); Human Metapneumovirus Not Detected (NOT DETECT); Human Rhinovirus/Enterovirus Not Detected (NOT DETECT); Influenza A Not Detected (NOT DETECT); Influenza A H1 Not Detected (NOT DETECT); Influenza A H1-2009 Not Detected (NOT DETECT); Influenza A H3 Not Detected (NOT DETECT); Influenza B Not Detected (NOT DETECT); Mycoplasma Pneumoniae Not Detected (NOT DETECT); Parainfluenza Virus Type 1 Not Detected (NOT DETECT); Parainfluenza Virus Type 2 Not Detected (NOT DETECT); Parainfluenza Virus Type 3 Not Detected (NOT DETECT); Parainfluenza Virus Type 4 Not Detected (NOT DETECT); Respiratory Syncytial Virus A Not Detected (NOT DETECT); Respiratory Syncytial Virus B Not Detected (NOT DETECT); SARS-COV-2 Not Detected (NOT DETECT)
[2025-01-21 22:11] LABS: Vancomycin Trough 9.7 ug/mL (10-15)
--- NOTE | 2025-01-21 22:42 | PC.NURSE ---
Addendum entered by JEANNE Unger 01/21/25 22:47: Traci VS: 90HR, 128/96 BP, 26RR, 98.4 Rectal Temperature, 96% on 40% FiO2 ventilated. Original Note: 2033: Giulia Peralta with [facility] ([phone]) called to advise patient has been accepted to [place] [facility] 2S-99. Room 99 refers to room assignment upon arrival, but they assure that they are holding a bed. Report was given to Giulia Peralta, who advised she then passes on reports from physician and nurse, along with charting to the receiving nurse. 2112: Aviva with [facility] dispatch advised [facility] has accepted pending weather check with a 26 minute ETE. 2119: Aviva with [facility] called back, advised weather check is good, [facility] from [facility] with 26 minute ETE. 2229: Patient left the floor with [facility] transport in stable-transfer condition.
[2025-01-22 00:02] VITALS: BP 128/96; PULSE 90; RESP 26; TEMP 36.9; O2SAT 96
--- NOTE | 2025-01-22 00:09 | PC.NURSE ---
Spoke with patient's person to notify - Siri Zimmerman. Advised that patient has been transferred to [facility], and the patient has belongings remaining in the ICU. Siri agreed to pick them up tomorrow, 01/22/2025.
--- NOTE | 2025-01-22 00:21 | PC.NURSE ---
Wasted 30mL remaining Fentany with Reuben Ho RN.
[2025-01-24 17:35] LABS: Fungitell 1-3-B Glucan Assay 35 pg/ml; Interpretation Negative (Negative)
== END 2025-01-21 22:30 | disposition short-term general hospital (02) | DRG 870 ==
LOC: ER 13:10 → ICU 14:37 → MEDSURG 01-15 16:42 → ICU 01-15 16:43
PROVIDERS: Student in an Organized Health Care Education/Training Program; Admitting Provider Internal Medicine; Emergency Provider Student in an Organized Health Care Education/Training Program; Visit Provider Internal Medicine
DX: A41.9 Sepsis, unspecified organism (principal); G93.41 Metabolic encephalopathy; J10.01 Influenza due to other identified influenza virus with the same other identified influenza virus pneumonia; J80 Acute respiratory distress syndrome; F10.131 Alcohol abuse with withdrawal delirium; E87.1 Hypo-osmolality and hyponatremia; E87.20 Acidosis, unspecified; D69.6 Thrombocytopenia, unspecified; M10.9 Gout, unspecified; Z91.199 Patient's noncompliance with other medical treatment and regimen due to unspecified reason; K70.10 Alcoholic hepatitis without ascites; Z86.0100 Personal history of colon polyps, unspecified; F17.210 Nicotine dependence, cigarettes, uncomplicated; J43.9 Emphysema, unspecified; R74.8 Abnormal levels of other serum enzymes; R45.1 Restlessness and agitation; R56.9 Unspecified convulsions
CPT/HCPCS: 36415; 36592; 36600; 51702; 70450; 71045; 71250; 71275; 74176; 80051; 80053; 80202; 80306; 82140; 82330; 82565; 82607; 82803; 82805; 83605; 83735; 84145; 84443; 84484; 84550; 85025; 86140; 86403; 86705; 86706; 86709; 86803; 87040; 87070; 87075; 87086; 87205; 87340; 87449; 87486; 87522; 87581; 87633; 87637; 93005; 93308; 93970; 94003; 94640; 94660; 94664; 94799; 96365; 96372; 96374; 96375; 96376; 99291; A4570; C1751; J0330; J0456; J0696; J1630; J1644; J1940; J2060; J2185; J2248; J2250; J2270; J2470; J2560; J2704; J2919; J3010; J3370; J3372; J3411; J3486; J3490; J7030; J7050; Q0144